=== PATIENT | male | born 1960 | race Two or more races ===

== ENCOUNTER 2023-05-16 16:23 | Emergency (ER) | payer OTHER, SELFPAY ==
[2023-05-16 16:35] VITALS: BP 134/89; PULSE 97; RESP 18; TEMP 37.1; O2SAT 96; BMI 25.1
--- NOTE | 2023-05-16 16:38 | ED_ITS ---
HPI - General Adult General Chief complaint: General Medical Stated complaint: High blood Sugar Time Seen by Provider: 05/16/23 19:33 Source: patient, RN notes reviewed and old records reviewed Mode of arrival: ambulatory Limitations: language barrier History of Present Illness HPI narrative: 62-year-old male who denies any past medical history presents for evaluation of ?feeling weak. ? Reports he has been feeling this way for quite some time, he has also had increased urination. Patient went to urgent care but was sent year as his point of care glucose was found to be over 600 Denies any fevers, chills or pain. Denies a known history of diabetes He was also swabbed for flu and COVID but does not know the results. Patient endorses a cough Related Data Previous Rx's Medication Instructions Recorded metformin 500 mg tablet 500 mg PO BID #60 tabs 05/16/23 Allergies Allergy/AdvReac Type Severity Reaction Status Date / Time No Known Allergies Allergy Verified 05/16/23 16:45 Review of Systems 2 Constitutional: Constitutional: Denies chills, Denies fever(s) and Reports weakness Eyes: Eyes: Denies blurry vision ENT: Denies sore throat Cardiovascular: Cardiovascular: Denies chest pain and Denies dyspnea Respiratory: Respiratory: Reports cough and Denies dyspnea Gastrointestinal: Gastrointestinal: Denies abdominal pain, Denies nausea and Denies vomiting Musculoskeletal: Musculoskeletal: Denies back pain Integumentary/Breasts: Skin/Breast: Denies rash Neurologic: Reports weakness PMFSH Social History Social History Smoked in Last 30 Days: Yes Use of substances other than those prescribed or required for medical reasons: No Advance Directives: No Advance Directives Information Provided: No Physical Exam ED Vital Signs: Vital Signs - 24 hr 05/16/23 16:35 05/16/23 19:34 05/16/23 20:31 Temperature 98.8 F 98.0 F 98.1 F Pulse Rate 97 78 66 Respiratory Rate 18 17 14 Blood Pressure 134/89 136/85 147/89 H Pulse Oximetry 96 96 98 Oxygen Delivery Method Room Air Room Air Room Air 05/16/23 23:18 Temperature Pulse Rate 80 Respiratory Rate 15 Blood Pressure 148/81 H Pulse Oximetry 96 Oxygen Delivery Method Room Air BMI result Body Mass Index 25.1 Const General: healthy appearing, comfortable, no acute distress, alert and awake Nutritional Appearance: well nourished Orientation/consciousness: patient oriented x3 HENMT Head: Yes normocephalic and Yes atraumatic Throat: Yes posterior oropharynx normal Eyes Eyelids: Yes eyelids normal Conjunctivae: conjunctivae normal Sclerae: sclerae normal Corneas: corneas normal Pupils: Equal, round and reactive pupils present EOM: EOMs intact bilaterally Neck Neck: Yes full ROM Resp Effort & Inspection: normal respiratory effort, able to speak in complete sentences, no audible wheezes and not labored Auscultation: clear to auscultation bilaterally Cardio Rate: regular rate Rhythm: regular rhythm GI Inspection: No distended Palpation (GI): Soft to palpation, not firm, nontender, no guarding and not rigid Skin General skin exam: no rashes or lesions noted and elasticity normal Neuro General: patient oriented x3 Cranial nerves: Yes Equal, round and reactive pupils present and Yes Bilaterally intact EOM present Cognition (Neuro): normal cognition Extrem Other: Moving all extremities well without any obvious deformities Course Course Course Narrative: RME:? Full HPI, ROS and PE to be performed by the primary ED provider. Reevaluation(s) Reevaluation #1: Patient's glucose has greatly improved to 264 with IV fluids alone, the patient will be discharged with metformin Time: 23:22 Medications Administered Discontinued Medications Generic Name Dose Route Start Last Admin Trade Name Freq PRN Reason Stop Dose Admin Sodium Chloride 1,000 mls @ 999 mls/hr 05/16/23 20:15 05/16/23 20:28 Ns IV 05/16/23 22:15 999 mls/hr .[id number] MARILEE Administration Medical Decision Making Medical Decision Making [facility] Narrative: 62-year-old male presents for evaluation of general weakness, increased urination. He was found to have a glucose of 496. There is no evidence of DKA, is electrolytes are within normal limits once his sodium is corrected for hyperglycemia. His anion gap is within normal limits, his beta hydroxybutyrate is slightly elevated and likely due to the fact the patient has had elevated glucose for quite some time. However again, there is no evidence of DKA. Will treat with IV fluids and recheck his sugar Differential Diagnosis Differential Diagnoses: The differential diagnosis associated with the presentation includes Hyperglycemia HHS DKA Dehydration Lab Data [facility] Lab Attestation statement: I reviewed the patient's lab results. As above 05/16/23 16:59 05/16/23 16:59 Labs: Lab Results 05/16/23 05/16/23 05/16/23 Range/Units 16:59 18:26 19:36 WBC 7.9 (4.8-10.8) X10*3/uL RBC 5.43 (4.60-5.80) X10*6/uL Hgb 14.7 (14.0-18.0) g/dl Hct 44.1 (42.0-52.0) % MCV 81.2 (80.0-98.0) fL MCH 27.1 (27.0-33.0) pg MCHC 33.3 (31.0-36.0) g/dl RDW 12.1 (11.0-16.0) % Plt Count 274 (160-400) X10*3/uL MPV 11.0 (9.4-12.4) fL Immature Gran % (Auto) 0.3 (0.0-0.4) % Neut % (Auto) 60.9 (45-73) % Lymph % (Auto) 32.6 (20-40) % [place] % (Auto) 3.9 (2-11) % Eos % (Auto) 1.8 (0-4) % Baso % (Auto) 0.5 (0-2) % Lymph # (Auto) 2.6 (1.2-4.9) X10*3/uL [place] # (Auto) 0.3 (0.1-1.2) X10*3/uL Eos # (Auto) 0.1 (0.0-0.4) X10*3/uL Baso # (Auto) 0.0 (0.0-0.2) X10*3/uL Abs Immat Gran (auto) 0.02 (0.00-0.03) X10*3/uL Absolute Neuts (auto) 4.8 (2.0-8.3) x10*3/uL Absolute Nucleated RBC 0.000 (0.0-0.012) X10*3/uL Nucleated RBC % (auto) 0.0 (0.0-0.2) /100WBC Sodium 132 L (135-145) mmol/L Potassium 4.4 (3.3-5.1) mmol/L Chloride 98 (96-108) mmol/L Carbon Dioxide 24 (22-29) mmol/L Anion Gap 14 (12-20) BUN 12 (9-16) mg/dL Creatinine 1.29 (0.5-1.4) mg/dL Estim Creat Clear Calc 58.9 Estimated GFR 57 POC Glucose 385 H* (60-115) mg/dL Random Glucose 496 H* (60-115) mg/dL Osmolality 300 (281-305) mosm/kg Calcium 9.5 (8.4-10.2) mg/dL Magnesium 2.1 (1.6-2.6) mg/dL Total Bilirubin 0.3 (0.0-1.0) mg/dL AST 34 (5-37) U/L ALT 40 (0-40) U/L Alkaline Phosphatase 83 (39-117) U/L Total Protein 7.9 (6.5-8.0) g/dL Albumin 4.4 (3.5-5.0) g/dL Lipase 66 (8-78) U/L Beta-Hydroxybutyrate 1.30 H (0.02-0.27) mmol/L Urine Color Urine Appearance Urine pH (5.0-9.0) Ur Specific [place] (1.005-1.025) Urine Protein (Neg-Trace) mg/dL Urine Glucose (UA) (Negative) mg/dL Urine Ketones (Negative) mg/dL Urine Blood (Negative) Urine Nitrite (Negative) Ur Leukocyte Esterase (Negative) Urine RBC (0-2) /HPF Urine WBC (0-5) /HPF Ur Squamous Epith Cells (0-2) /HPF Urine Bacteria (None Seen) Hyaline Casts (0-2) /LPF COVID-19 (MARQUIS) Negative (Negative) COVID-19 Clin Com See Note Influenza Type A (NORBERTO) Negative (Negative) Influenza Type B (NORBERTO) Negative (Negative) Influenza A & B Note See Note 05/16/23 Range/Units 19:40 WBC (4.8-10.8) X10*3/uL RBC (4.60-5.80) X10*6/uL Hgb (14.0-18.0) g/dl Hct (42.0-52.0) % MCV (80.0-98.0) fL MCH (27.0-33.0) pg MCHC (31.0-36.0) g/dl RDW (11.0-16.0) % Plt Count (160-400) X10*3/uL MPV (9.4-12.4) fL Immature Gran % (Auto) (0.0-0.4) % Neut % (Auto) (45-73) % Lymph % (Auto) (20-40) % [place] % (Auto) (2-11) % Eos % (Auto) (0-4) % Baso % (Auto) (0-2) % Lymph # (Auto) (1.2-4.9) X10*3/uL [place] # (Auto) (0.1-1.2) X10*3/uL Eos # (Auto) (0.0-0.4) X10*3/uL Baso # (Auto) (0.0-0.2) X10*3/uL Abs Immat Gran (auto) (0.00-0.03) X10*3/uL Absolute Neuts (auto) (2.0-8.3) x10*3/uL Absolute Nucleated RBC (0.0-0.012) X10*3/uL Nucleated RBC % (auto) (0.0-0.2) /100WBC Sodium (135-145) mmol/L Potassium (3.3-5.1) mmol/L Chloride (96-108) mmol/L Carbon Dioxide (22-29) mmol/L Anion Gap (12-20) BUN (9-16) mg/dL Creatinine (0.5-1.4) mg/dL Estim Creat Clear Calc Estimated GFR POC Glucose (60-115) mg/dL Random Glucose (60-115) mg/dL Osmolality (281-305) mosm/kg Calcium (8.4-10.2) mg/dL Magnesium (1.6-2.6) mg/dL Total Bilirubin (0.0-1.0) mg/dL AST (5-37) U/L ALT (0-40) U/L Alkaline Phosphatase (39-117) U/L Total Protein (6.5-8.0) g/dL Albumin (3.5-5.0) g/dL Lipase (8-78) U/L Beta-Hydroxybutyrate (0.02-0.27) mmol/L Urine Color Yellow Urine Appearance Clear Urine pH 6.0 (5.0-9.0) Ur Specific [place] >= 1.030 H (1.005-1.025) Urine Protein Negative (Neg-Trace) mg/dL Urine Glucose (UA) >=1000 H (Negative) mg/dL Urine Ketones 40 (Negative) mg/dL Urine Blood Negative (Negative) Urine Nitrite Negative (Negative) Ur Leukocyte Esterase Negative (Negative) Urine RBC 0-2 (0-2) /HPF Urine WBC 0-5 (0-5) /HPF Ur Squamous Epith Cells 0-2 (0-2) /HPF Urine Bacteria None Seen (None Seen) Hyaline Casts 0-2 (0-2) /LPF COVID-19 (MARQUIS) (Negative) COVID-19 Clin Com Influenza Type A (NORBERTO) (Negative) Influenza Type B (NORBERTO) (Negative) Influenza A & B Note Discharge Plan Discharge Clinical Impression: Acute hyperglycemia Patient Disposition: Home, Self-Care Instructions: Diabetic Hyperglycemia (ED) Additional Instructions: You have a new diagnosis of type 2 diabetes Take metformin twice daily Drink lots of water, avoid excessive carbohydrates and sugars Follow-up with your primary doctor as soon as possible Prescriptions: New metformin 500 mg tablet 500 mg PO BID Qty: 60 0RF
[2023-05-16 17:18] LABS: MANUAL DIFF FLAG NO
[2023-05-16 17:26] LABS: Basophils Percent Auto 0.5 % (0-2); Eosinophils Absolute Auto 0.1 X10*3/uL (0.0-0.4); Eosinophils Percent Auto 1.8 % (0-4); Hematocrit 44.1 % (42.0-52.0); Hemoglobin 14.7 g/dl (14.0-18.0); Imm Gran Abs Auto 0.02 X10*3/uL (0.00-0.03); Imm Gran Pct Auto 0.3 % (0.0-0.4); Lymphocytes Absolute Auto 2.6 X10*3/uL (1.2-4.9); Lymphocytes Percent Auto 32.6 % (20-40); Mean Corpuscular HGB Conc 33.3 g/dl (31.0-36.0); Mean Corpuscular Hemoglobin 27.1 pg (27.0-33.0); Mean Corpuscular Volume 81.2 fL (80.0-98.0); Monocytes Absolute Auto 0.3 X10*3/uL (0.1-1.2); Monocytes Percent Auto 3.9 % (2-11); Neutrophils Absolute Auto 4.8 x10*3/uL (2.0-8.3); Neutrophils Percent Auto 60.9 % (45-73); Platelet Count 274 X10*3/uL (160-400); Red Blood Count 5.43 X10*6/uL (4.60-5.80); Red Cell Distribution Width 12.1 % (11.0-16.0); White Blood Count 7.9 X10*3/uL (4.8-10.8)
[2023-05-16 17:46] LABS: Alanine Aminotransferase 40 U/L (0-40); Albumin Level 4.4 g/dL (3.5-5.0); Alkaline Phosphatase 83 U/L (39-117); Anion Gap 14 (12-20); Aspartate Amino Transferase 34 U/L (5-37); Bilirubin Total 0.3 mg/dL (0.0-1.0); Blood Urea Nitrogen 12 mg/dL (9-16); Calcium 9.5 mg/dL (8.4-10.2); Carbon Dioxide 24 mmol/L (22-29); Chloride 98 mmol/L (96-108); Creatinine Clr Calc Pharmacy 58.9; Estimated Glomerular Filt Rate 57; Glucose Random 496 mg/dL (60-115); Lipase 66 U/L (8-78); Magnesium 2.1 mg/dL (1.6-2.6); Potassium 4.4 mmol/L (3.3-5.1); Sodium 132 mmol/L (135-145); Total Protein 7.9 g/dL (6.5-8.0)
[2023-05-16 17:48] LABS: COVID-19 Test Negative (Negative); IDNOW Serial# 08D9AD1C; IDNOW Serial# 152EDE1D; Influenza A Negative (Negative); Influenza B2 Negative (Negative)
[2023-05-16 18:43] LABS: Osmolality, Serum 300 mosm/kg (281-305)
[2023-05-16 19:34] VITALS: BP 136/85; PULSE 78; RESP 17; TEMP 36.7; O2SAT 96
[2023-05-16 19:45] LABS: Glucose, Whole Blood 385 mg/dL (60-115)
[2023-05-16 19:49] LABS: Appearance Urine Clear; Color Urine Yellow; Glucose Urine UA >=1000 mg/dL (Negative); Leukocyte Esterase Urine Negative (Negative); Nitrite Urine Negative (Negative); Specific Gravity - Urine >= 1.030 (1.005-1.025); UMIC TRIGGER UACC YES; Urine Blood Negative (Negative); Urine Ketones 40 mg/dL (Negative); Urine Protein Negative (Neg-Trace)
[2023-05-16 19:54] LABS: Bacteria Urine None Seen (None Seen); Hyaline Casts Urine 0-2 /LPF (0-2); RBC Urine 0-2 /HPF (0-2); Squamous Epithelial Cell Urine 0-2 /HPF (0-2); WBC Urine 0-5 /HPF (0-5)
[2023-05-16] MEDS: 0.9 % Sodium Chloride 1,000 ML 999 ML IV ×2 (20:27→20:28)
[2023-05-16 20:31] VITALS: BP 147/89; PULSE 66; RESP 14; TEMP 36.7; O2SAT 98
[2023-05-16 23:18] VITALS: BP 148/81; PULSE 80; RESP 15; O2SAT 96
[2023-05-16 23:23] LABS: Glucose, Whole Blood 267 mg/dL (60-115)
[2023-05-16 23:42] VITALS: BP 138/87; PULSE 72; RESP 14; TEMP 37.1; O2SAT 95
== END 2023-05-16 23:46 | disposition home or self-care (01) ==
PROVIDERS: Physician Assistant Medical; Emergency Provider Internal Medicine
DX: R73.9 Hyperglycemia, unspecified (principal); R35.0 Frequency of micturition; Z79.899 Other long term (current) drug therapy; Z11.52 Encounter for screening for COVID-19
CPT/HCPCS: 36415; 80053; 81001; 82010; 82947; 83690; 83735; 83930; 85025; 87502; 87635; 96360; 96361; 99284

== ENCOUNTER 2023-07-31 14:31 | Emergency (ER) | payer OTHER, SELFPAY ==
[2023-07-31 15:05] VITALS: BP 116/81; PULSE 76; RESP 18; TEMP 36.8; O2SAT 98; BMI 21.1
--- NOTE | 2023-07-31 15:07 | ED.GENADULT ---
HPI - General Adult General Chief complaint: Weakness Stated complaint: diabetic not feeling well pain all over Time Seen by Provider: 07/31/23 21:30 History of Present Illness HPI narrative: The patient is a 63-year-old male who is from [facility]. Came to the emergency room 2-1/2 months ago on May 16 with a complaint of feeling weak. He had also been having increased urination. He would gone to an urgent care center where he was found to be hyperglycemic and he was referred to the emergency room. On that occasion his blood sugar was 496. He was given IV fluids with significant improvement in his blood sugar. He was not felt to be in DKA. He was discharged from the emergency room on metformin 500 mg b.i.d. The patient returns to the emergency room today because he feels that when he eats his blood sugar goes high. He also says that for the last week or two he has had a lot of diffuse muscle aches in his limbs. No fever, sweats, chills. No abdominal pain, nausea, vomiting. No chest pain or shortness of breath. He has not yet managed to have a follow up appointment of any significance. He apparently has an appointment with an log check scaler on September 30. Related Data Previous Rx's ?Medication ?Instructions ?Recorded metformin 500 mg tablet 500 mg PO BID #60 tabs 05/16/23 metformin 1,000 mg tablet 1,000 mg PO BID #60 tabs 07/31/23 Allergies Allergy/AdvReac Type Severity Reaction Status Date / Time No Known Allergies Allergy Verified 07/31/23 15:14 Review of Systems Review of Systems: Yes all other systems are reviewed and are negative [facility] Social History Social History Advance Directives: No Advance Directives Information Provided: No Physical Exam ED Vital Signs: Vital Signs - 24 hr 07/31/23 15:05 07/31/23 23:20 Temperature 98.2 F 98.2 F Pulse Rate 76 76 Respiratory Rate 18 18 Blood Pressure 116/81 116/81 Pulse Oximetry 98 98 Oxygen Delivery Method Room Air Room Air BMI result Body Mass Index 21.1 Const Other: The patient is a slim 63-year-old male who was awake and alert and who does not appear acutely ill. He is pleasant and cooperative. He did not appear obviously acutely ill. HENMT Other: Face is symmetrical. Mucous membranes moist. Eyes Other: Pupils are round equal, conjunctivae clear Neck Neck: Yes no JVD Resp Effort & Inspection: normal respiratory effort Auscultation: clear to auscultation bilaterally Cardio Rate: regular rate Rhythm: regular rhythm Heart sounds: S1 normal heart sound present and S2 normal heart sound present GI Other: Abdomen is soft and nontender Skin Other: Skin is dry and unremarkable Neuro Other: The patient is awake, alert, and appropriate. His demeanor is nontoxic. Face was symmetrical. Speech was clear. Eye movements normal. He moves his extremities normally. His gait was normal. He is grossly neurologically intact. Extrem Other: No peripheral edema Course Course Course Narrative: This is a rapid medical exam completed by Francis WASHINGTONN: Additional HPI, ROS, PE not included below will be deferred to primary provider. Diabetic, on metformin, not feeling well and feels weak. States he feels as if his blood sugar shoots up when he eats so he has been decreasing his food intake to prevent this. He has been living in a hotel and is unable to cook healthy food and is eating what is available. Medical Decision Making Medical Decision Making [facility] Narrative: The patient is a 63-year-old male who is from [facility]. His primary language is [place] Creole but he is also quite fluent in P[place]de[place], Japanese, and also speaks some Kinyarwanda. I attempted to use are electronic sales and service change leader to speak with the patient in [place] Creole or Japanese but the machine was not working. He was therefore ultimately interviewed with our in-person [place]dein[place] russian language instructor. The patient's description of symptoms that prompted him to come to the emergency room was somewhat vague. He describes living in a hotel where he feels the food is able to prepare causes his blood sugars despite. He also complains of some generalized body aches. Clinically the patient looks very well. Labs are unremarkable. There is no sign of acidosis. Renal function is good. The patient's CBC was unremarkable. CPK was checked given his complaint of diffuse body pains. This was normal also. Overall I felt the patient's clinical appearance was extremely benign I did not see any indication for hospitalization or additional evaluation in the emergency room. The patient has been on 500 mg of metformin b.i.d. for over a month. I think this can probably be increased. I will write a prescription for metformin 1000 mg b.i.d.. He currently has an appointment on September 30. He plans to keep this appointment. Lab Data 07/31/23 15:47 07/31/23 15:47 Labs: Lab Results 07/31/23 Range/Units 15:47 WBC 4.9 (4.8-10.8) X10*3/uL RBC 4.90 (4.60-5.80) X10*6/uL Hgb 13.5 L (14.0-18.0) g/dl Hct 40.9 L (42.0-52.0) % MCV 83.5 (80.0-98.0) fL MCH 27.6 (27.0-33.0) pg MCHC 33.0 (31.0-36.0) g/dl RDW 12.2 (11.0-16.0) % Plt Count 217 (160-400) X10*3/uL MPV 10.1 (9.4-12.4) fL Immature Gran % (Auto) 0.2 (0.0-0.4) % Neut % (Auto) 49.6 (45-73) % Lymph % (Auto) 42.3 H (20-40) % [place] % (Auto) 5.7 (2-11) % Eos % (Auto) 1.4 (0-4) % Baso % (Auto) 0.8 (0-2) % Lymph # (Auto) 2.1 (1.2-4.9) X10*3/uL [place] # (Auto) 0.3 (0.1-1.2) X10*3/uL Eos # (Auto) 0.1 (0.0-0.4) X10*3/uL Baso # (Auto) 0.0 (0.0-0.2) X10*3/uL Abs Immat Gran (auto) 0.01 (0.00-0.03) X10*3/uL Absolute Neuts (auto) 2.4 (2.0-8.3) x10*3/uL Absolute Nucleated RBC 0.000 (0.0-0.012) X10*3/uL Nucleated RBC % (auto) 0.0 (0.0-0.2) /100WBC Sodium 134 L (135-145) mmol/L Potassium 4.0 (3.3-5.1) mmol/L Chloride 98 (96-108) mmol/L Carbon Dioxide 27 (22-29) mmol/L Anion Gap 13 (12-20) BUN 10 (9-16) mg/dL Creatinine 1.10 (0.5-1.4) mg/dL Estim Creat Clear Calc 68.3 Estimated GFR > 60 Random Glucose 290 H (60-115) mg/dL Calcium 9.5 (8.4-10.2) mg/dL Total Bilirubin 0.4 (0.0-1.0) mg/dL AST 19 (5-37) U/L ALT 23 (0-40) U/L Alkaline Phosphatase 63 (39-117) U/L Total Creatine Kinase 116 (38-174) U/L Total Protein 7.0 (6.5-8.0) g/dL Albumin 4.0 (3.5-5.0) g/dL Discharge Plan Discharge Clinical Impression: Type 2 diabetes mellitus, Body aches Patient Disposition: Home, Self-Care Additional Instructions: Your testing in the emergency room today seems reassuring. At this point I think it would be reasonable to increase your metformin dosing. I have sent a new prescription for a higher dose of metformin. The prescription is for 1000 mg 2 times a day. Please do your best to continue monitoring your blood sugars. Please plan on keeping your appointment on September 30 as scheduled. Return to the emergency room if significantly worse. Prescriptions: New metformin 1,000 mg tablet 1,000 mg PO BID Qty: 60 0RF No Action metformin 500 mg tablet 500 mg PO BID Qty: 60 0RF Interventions: ED Discharge Assessment Last Done: 07/31/23 23:20 Discharge Date/Time: 07/31/23 23:21 Print Language: [place] Creveronica
[2023-07-31 16:03] LABS: MANUAL DIFF FLAG NO
[2023-07-31 16:12] LABS: Basophils Percent Auto 0.8 % (0-2); Eosinophils Absolute Auto 0.1 X10*3/uL (0.0-0.4); Eosinophils Percent Auto 1.4 % (0-4); Hematocrit 40.9 % (42.0-52.0); Hemoglobin 13.5 g/dl (14.0-18.0); Imm Gran Abs Auto 0.01 X10*3/uL (0.00-0.03); Imm Gran Pct Auto 0.2 % (0.0-0.4); Lymphocytes Absolute Auto 2.1 X10*3/uL (1.2-4.9); Lymphocytes Percent Auto 42.3 % (20-40); Mean Corpuscular Hemoglobin 27.6 pg (27.0-33.0); Mean Corpuscular Volume 83.5 fL (80.0-98.0); Mean Platelet Volume 10.1 fL (9.4-12.4); Monocytes Absolute Auto 0.3 X10*3/uL (0.1-1.2); Monocytes Percent Auto 5.7 % (2-11); Neutrophils Absolute Auto 2.4 x10*3/uL (2.0-8.3); Neutrophils Percent Auto 49.6 % (45-73); Platelet Count 217 X10*3/uL (160-400); Red Cell Distribution Width 12.2 % (11.0-16.0); White Blood Count 4.9 X10*3/uL (4.8-10.8)
[2023-07-31 16:22] LABS: Alanine Aminotransferase 23 U/L (0-40); Alkaline Phosphatase 63 U/L (39-117); Anion Gap 13 (12-20); Aspartate Amino Transferase 19 U/L (5-37); Bilirubin Total 0.4 mg/dL (0.0-1.0); Blood Urea Nitrogen 10 mg/dL (9-16); Calcium 9.5 mg/dL (8.4-10.2); Carbon Dioxide 27 mmol/L (22-29); Chloride 98 mmol/L (96-108); Creatinine Clr Calc Pharmacy 68.3; Estimated Glomerular Filt Rate > 60; Glucose Random 290 mg/dL (60-115); Sodium 134 mmol/L (135-145)
[2023-07-31 23:20] VITALS: BP 116/81; PULSE 76; RESP 18; TEMP 36.8; O2SAT 98
== END 2023-07-31 23:21 | disposition home or self-care (01) ==
PROVIDERS: Nurse Practitioner Family; Emergency Provider Emergency Medicine
DX: M70.10 Bursitis, unspecified hand (principal); E11.9 Type 2 diabetes mellitus without complications; Z79.899 Other long term (current) drug therapy
CPT/HCPCS: 36415; 80053; 82550; 85025; 99282; 99283; 99284

== ENCOUNTER 2024-01-13 14:44 | Inpatient (IN) | payer OTHER, SELFPAY ==
[2024-01-13] VITALS (30 sets, daily range): BP systolic 76–108; BP diastolic 48–76; PULSE 98–145; RESP 17–33; TEMP 37.1–39.4; O2SAT 94–98; BMI 21.5; BMI 22.6
--- NOTE | ~2024-01-13 | CT_ITS ---
EXAMINATION: CT ABDOMEN AND PELVIS WITH CONTRAST CLINICAL INFORMATION: 63-year-old male with sepsis COMPARISON: None available. TECHNIQUE: Multidetector volumetric images were obtained from the superior aspect of the liver through the pubic symphysis following administration 85 mL of Omnipaque 350 intravenous contrast. Sagittal and coronal reformatted images were obtained on the technologist's workstation. Oral contrast: No This CT examination was performed using dose optimization techniques as appropriate, variously including the following: *Automated exposure control *Adjustment of mA and/or kV according to patient size (this includes techniques or standardized protocols for targeted exams where dose is matched to indication/reason for exam; i.e. extremities or head) *Use of iterative reconstruction technique DLP: 372 mGy-cm FINDINGS: LUNG BASES: There is trace of left-sided pleural effusion and adjacent airspace disease is more prominent on the left. LIVER, GALLBLADDER, AND BILIARY TREE: Liver is of low attenuation, enlarged and surrounded by small amount of ascites without intrahepatic masses or ductal dilatation gallbladder surrounded by fluid with diffuse wall thickening, measured approximately 0.7 cm. No evidence of cholelithiasis PANCREAS: Unremarkable. SPLEEN: Unremarkable. ADRENAL GLANDS: Unremarkable. KIDNEYS AND URETERS: There is perinephric fat stranding and left kidney demonstrate loss of corticomedullary differentiation. Right kidney mentation 2 mild fullness of collecting system and diffuse edema revealed low-attenuation lesion measured 2.3 x 2.1 cm most likely calyectasis but abscess could not be excluded. BLADDER: Unremarkable. GASTROINTESTINAL TRACT: There is no bowel obstruction, perforation, wall thickening. There is mild diffuse ascites more prominent in perinephric spaces and along with the psoas muscles. Appendix not identified. ABDOMINAL WALL: No significant hernia is appreciated. LYMPH NODES: Normal. VASCULAR: Unremarkable. PELVIC VISCERA: Unremarkable. OSSEOUS STRUCTURES: Unremarkable. CT/CT abdomen pelvis w IV con IMPRESSION: Questionable pyelonephritis with possible right-sided atelectasis versus small abscess. Perinephric and limited for targeted to annual as well as abdominal ascites. Trace of pleural effusion on the left with adjacent atelectasis. Significant thickening, gallbladder wall suggestive for acalculous cholecystitis . Fleischner guidelines were followed. Electronically signed by: Mirela Ng MD 01/13/2024 08:57 PM EDT
--- NOTE | ~2024-01-13 | US_ITS ---
ULTRASOUND-GUIDED CHOLECYSTOSTOMY TUBE PROCEDURES: 1. Limited preprocedure ultrasound of the abdomen. Permanent images saved in PACS. 2. Ultrasound-guided cholecystostomy tube placement. 3. Limited postprocedure ultrasound of the abdomen. Permanent images saved in PACS. CLINICIANS: George Heck PA-C MEDICATIONS: -Lidocaine 1% 10 mL SQ -Antibiotics: None -For additional details, please see nursing flowsheet. COMPLICATIONS: None ESTIMATED BLOOD LOSS: < 5 ml CONTRAST: None SPECIMENS: A sample of bile was sent for culture. PROCEDURE NOTE: The procedure, risks, benefits, and alternatives were carefully explained to the patient and written informed consent was obtained. The patient was placed supine on his ICU bed.. A timeout was performed. A limited ultrasound of the abdomen was performed to localize the gallbladder and choose appropriate needle entry and trajectory. The patient was prepped and draped in usual sterile fashion. The skin and deeper soft tissues were anesthetized with lidocaine. Under ultrasound guidance, a 5 Ug[place]an Yueh needle/catheter was advanced into the gallbladder lumen via transhepatic approach. A 0.035 wire was inserted through the catheter and coiled within the gallbladder. The Yueh catheter was removed over the wire. The tract was dilated. Over the wire, an 8.5 Ugandan all-purpose drainage catheter was advanced and coiled within the gallbladder. 10 mL of very dark/thick bile was aspirated and sent for culture. A limited post procedure ultrasound was then performed. Images were saved in PACS. The drain was connected to a ABDIFATAH bulb. A dry dressing was applied and secured with Tegaderm. There were no immediate complications. The patient was stable after the procedure. US/US drain visceral Impression: Ultrasound-guided cholecystostomy tube placement This procedure was performed by George Heck PA-C and supervised by Dr. Tamez. Electronically signed by: Abilio Tamez MD 01/22/2024 02:10 PM EDT
--- NOTE | ~2024-01-13 | XR_ITS ---
EXAMINATION: XR CHEST CLINICAL INFORMATION: Cough, fever. COMPARISON: None available. TECHNIQUE: 2 views of the chest were obtained. FINDINGS: Diffuse interstitial coarsening with more focal airspace densities overlying the lower thoracic spine in the lower lungs on the lateral view. No pleural effusion or pneumothorax. No significant cardiomediastinal contour abnormality. No acute osseous findings. XR/XR chest 2V IMPRESSION: Findings suspicious for atypical infectious/inflammatory process with early infiltrates in the lower lungs. Electronically signed by: Marjorie Nguyen MD 01/13/2024 05:35 PM EDT
--- NOTE | ~2024-01-13 | CT_ITS ---
EXAMINATION: CT CHEST WITH CONTRAST CLINICAL INFORMATION: Sepsis COMPARISON: None available. TECHNIQUE: Multidetector volumetric CT imaging of the chest was obtained after the administration of 85 mL of Omnipaque 350 intravenous contrast without immediate adverse reactions. Axial MIP volume rendering provided. Sagittal and coronal reformatted images were obtained. This CT examination was performed using dose optimization techniques as appropriate, variously including the following: *Automated exposure control *Adjustment of mA and/or kV according to patient size (this includes techniques or standardized protocols for targeted exams where dose is matched to indication/reason for exam; i.e. extremities or head) *Use of iterative reconstruction technique DLP: 185 mGy-cm FINDINGS: NURSING SERVICE ADMINISTRATOR: Unremarkable LUNGS: There are no evidence of consolidation. Bibasilar atelectasis more prominent on the left. MEDIASTINUM: Thyroid gland is unremarkable. There is no mediastinal or hilar lymphadenopathy seen. No incidental pulmonary embolism. No pericardial effusion. PLEURA: There is trace of pleural effusion on the left AXILLA: No lymphadenopathy. UPPER ABDOMEN: See report of CT scan of the abdomen OSSEOUS STRUCTURES: Unremarkable. CT/CT chest w IV con IMPRESSION: Bilateral atelectasis and trace of pleural effusion on the left. Fleischner guidelines were followed. Electronically signed by: Mirela Ng MD 01/13/2024 09:01 PM EDT
--- NOTE | ~2024-01-13 | XR_ITS ---
EXAMINATION: XR CHEST CLINICAL INFORMATION: TLC placement. COMPARISON: 01/13/2024. TECHNIQUE: Frontal view of the chest was obtained. FINDINGS: Right IJ line tip projects into the right atrium. Cardiac silhouette borderline enlarged, although evaluation is limited due to low lung volumes. Possible trace, very tiny right apical pneumothorax. Redemonstration of prominent diffuse interstitial markings with patchy opacities predominantly in the lower left lung. Trace left pleural effusion. XR/XR chest 1V IMPRESSION: Redemonstration of prominent diffuse interstitial markings with patchy opacities predominantly in the lower left lung. Trace left pleural effusion. Right IJ line in the right atrium. Possible trace, very tiny right apical pneumothorax. This study was presented today, January 14, 2024, for interpretation. Stat results provided at this time as requested by referring provider. Electronically signed by: Shannan Mcgee MD 01/14/2024 10:51 AM EDT
--- NOTE | ~2024-01-13 | CT_ITS ---
EXAMINATION: CT ABDOMEN AND PELVIS WITHOUT CONTRAST CLINICAL INFORMATION: abdominal pain, ?renal abscess, ALEC COMPARISON: January 13, 2024. TECHNIQUE: Multidetector volumetric imaging was performed from the superior aspect of the liver through the pubic symphysis. Sagittal and coronal reformatted images were obtained on the technologist's workstation. This CT examination was performed using dose optimization techniques as appropriate, variously including the following: *Automated exposure control *Adjustment of mA and/or kV according to patient size (this includes techniques or standardized protocols for targeted exams where dose is matched to indication/reason for exam; i.e. extremities or head) *Use of iterative reconstruction technique DLP: 391 mGy-cm FINDINGS: LUNG BASES: Small bilateral pleural effusions with associated dependent airspace disease, right greater than left, worse compared with 3 days prior. Heart upper normal in size. Suspect decreased blood pool density, raising suspicion for anemia. No coronary arterial calcification identified. Small pericardial effusion, not significant changed. LIVER, GALLBLADDER, AND BILIARY TREE: The liver appears unremarkable in size, shape, and attenuation. No focal hepatic lesion or biliary ductal dilatation is appreciated. [place] loop of a percutaneous cholecystostomy tube performed within the neck of the gallbladder. No evidence of catheter kink. Gallbladder appears appropriately decompressed. PANCREAS: Unremarkable SPLEEN: Unremarkable ADRENAL GLANDS: Unremarkable KIDNEYS AND URETERS: Striated renal parenchymal pattern probably related to prior intravenous contrast administration and ATN. The kidneys appear unremarkable in size and shape. Question mild fullness of the right renal collecting system, unchanged compared with 3 days prior. Left renal collecting system appears unremarkable. No hydroureter or calculi seen. BLADDER: Poorly distended, therefore suboptimally evaluated. Grossly unremarkable. GASTROINTESTINAL TRACT: The small and large bowel appear unremarkable. No diverticulosis. Normal-appearing distal ileum. No evidence of appendicitis. ABDOMINAL WALL: Anasarca. No significant hernia is appreciated. LYMPH NODES: No evidence of adenopathy by size criteria. VASCULAR: Unremarkable PELVIC VISCERA: Unremarkable PERITONEAL CAVITY: Small amount of ascites. OSSEOUS STRUCTURES: Mild disc space narrowing and approximately 2 mm retrolisthesis of L5 on S1. CT/CT abdomen pelvis wo IV con IMPRESSION: Small bilateral pleural effusions with associated dependent airspace disease suggesting infiltrates and/or atelectasis, right greater than left, worse compared with 3 days prior. Striated renal parenchymal pattern probably related to prior intravenous contrast administration and ATN; superimposed pyelonephritis cannot be confirmed or excluded. Question mild fullness of the right renal collecting system, unchanged compared with 3 days prior. Left renal collecting system appears unremarkable. No hydroureter or calculi seen. Small amount of ascites. Anasarca. Additional findings as above. Electronically signed by: Raul Gardiner MD 01/16/2024 05:06 PM EDT RP
--- NOTE | 2024-01-13 15:11 | ED.GENADULT ---
HPI - General Adult General Chief complaint: Upper Respiratory Symptoms Stated complaint: Fever, chills Time Seen by Provider: 01/13/24 15:10 History of Present Illness ED Provider: Dr. Wesley HPI narrative: 63 y/o M patient; PMH T2DM on Metformin; presents from home with report of 10 days of generalized illness. The patient states he started with fever/chills, generalized body aches, nausea/vomiting, a productive cough, and lower abdominal pain/cramping. The patient denies shortness of breath or chest pain. Related Data Previous Rx's ?Medication ?Instructions ?Recorded metformin 500 mg tablet 500 mg PO BID #60 tabs 05/16/23 metformin 1,000 mg tablet 1,000 mg PO BID #60 tabs 07/31/23 metformin 1,000 mg tablet 1,000 mg PO BID 30 days #60 tabs 08/05/23 Allergies Allergy/AdvReac Type Severity Reaction Status Date / Time No Known Allergies Allergy Verified 01/13/24 15:07 Review of Systems Review of Systems: Yes all other systems are reviewed and are negative PMFSH Past Medical History Attestation statement: The following information was validated with the patient. Source: old records reviewed Social History Social History Smoked in Last 30 Days: Yes Use of substances other than those prescribed or required for medical reasons: No Advance Directives: No Advance Directives Information Provided: Yes Do you have a plan to hurt others: No Plan Physical Exam ED Vital Signs: Vital Signs - 24 hr 01/13/24 14:58 01/13/24 15:37 01/13/24 16:29 Temperature 100.2 F 102.3 F H 99.3 F Pulse Rate 120 H 117 H 124 H Respiratory Rate 18 19 22 H Blood Pressure 89/55 L 99/61 103/70 Pulse Oximetry 98 97 98 Oxygen Delivery Method Room Air Room Air 01/13/24 16:36 01/13/24 16:39 01/13/24 16:58 Temperature Pulse Rate 118 H 116 H 113 H Respiratory Rate 18 19 19 Blood Pressure 101/66 95/61 91/58 L Pulse Oximetry 97 98 98 Oxygen Delivery Method 01/13/24 17:30 01/13/24 18:19 01/13/24 18:30 Temperature Pulse Rate 109 H 107 H 109 H Respiratory Rate 18 21 H 17 Blood Pressure 88/56 L 90/63 83/57 L Pulse Oximetry 98 98 96 Oxygen Delivery Method Room Air 01/13/24 18:42 01/13/24 19:08 01/13/24 19:40 Temperature 98.8 F Pulse Rate 108 H 111 H 111 H Respiratory Rate 18 21 H 24 H Blood Pressure 91/59 L 96/66 103/65 Pulse Oximetry 97 97 97 Oxygen Delivery Method Room Air 01/13/24 19:55 01/13/24 20:10 01/13/24 20:15 Temperature 98.8 F Pulse Rate 109 H 106 H 105 H Respiratory Rate 21 H 19 21 H Blood Pressure 90/58 L 78/50 L 76/48 L Pulse Oximetry 97 96 96 Oxygen Delivery Method 01/13/24 20:26 01/13/24 20:33 01/13/24 20:40 Temperature 98.9 F Pulse Rate 108 H 107 H 107 H Respiratory Rate 20 20 21 H Blood Pressure 93/63 94/59 L 88/58 L Pulse Oximetry 96 96 97 Oxygen Delivery Method Room Air 01/13/24 20:44 01/13/24 20:49 01/13/24 20:54 Temperature Pulse Rate 105 H 105 H 105 H Respiratory Rate 20 19 Blood Pressure 88/58 L 90/61 89/62 L Pulse Oximetry 97 97 Oxygen Delivery Method Room Air 01/13/24 20:59 01/13/24 21:04 Temperature Pulse Rate 108 H 104 H Respiratory Rate 19 18 Blood Pressure 97/66 92/61 Pulse Oximetry 97 97 Oxygen Delivery Method Room Air BMI result Body Mass Index 22.6 Patient is febrile, tachycardic, and hypotensive. Const General: cooperative Orientation/consciousness: patient oriented x3 HENMT Head: Yes normal to inspection and Yes atraumatic Eyes General: appearance normal, both eyes and all related structures Pupils: Equal, round and reactive pupils present Neck Neck: Yes normal visual inspection, Yes full ROM, Yes supple and No tender Chest Chest palpation & inspection: normal inspection of the chest and normal palpation of entire chest wall Resp Effort & Inspection: normal respiratory effort, able to speak in complete sentences, no cough and no respiratory distress Auscultation: clear to auscultation bilaterally Cardio Rate: tachycardic Rhythm: regular rhythm Peripheral pulses: Peripheral pulses 2+ throughout GI Inspection: Yes normal to inspection, No Abdominal wall edema and No distended Palpation (GI): Soft to palpation, not firm, nontender, no guarding and not rigid Auscultation: normal bowel sounds Back/Spine/Pelvis Back: No back tenderness Neuro General: patient oriented x3 Cranial nerves: Yes Equal, round and reactive pupils present Course Course Course Narrative: 1515: Patient is febrile, tachycardic, and hypotensive. Providing 30cc/kg with 2L IVF. Will obtain sepsis labs including labs to assess for possible DKA/HHS. Provided Vancomycin and Zosyn for sepsis unclear etiology. Provided Tylenol 1g IV for fever. Will obtain CT Chest+abdomen+pelvis to assess for etiology of sepsis. Reevaluation(s) Reevaluation #1: Labs reviewed. No leukocytosis. 11% bands. Anemia 9.7 - prior Hgb 07/31/2023 was 13.5. LA 3.7. Cr 2.54 - baseline 1.10 from 07/31/2023. UA with evidence of infection with + blood, + nitrites, + leuk est and 11 - 20WBC, 2+ bacteria. Patient continues to be hypotensive despite 2L IVF. Providing 3rd L IVF. CXR concerning for possible bilateral early infiltrates. Adding atypical coverage with IV Azithromycin. Time: 18:11 Reevaluation #2: Patient's blood pressure intermittently improved and then worsened again after IV fluids. Starting on norepinephrine at 0.05. LA improved from 3.[address] results. Time: 20:28 Reevaluation #3: CT results reviewed. Questionable pyelonephritis with possible right-sided calyctasis versus small abscess. Trace left-sided pleural effusion. Significant thickening of the gallbladder wall suggestive of acalculous cholecystitis. ICU consulted - agree with admission to their service and possible IR evaluation tomorrow. Plan: Admit to ICU Condition: Stable Time: 21:23 Medications Administered Generic Name Dose Route Start Last Admin Trade Name Freq PRN Reason Stop Dose Admin Norepinephrine Bitartrate 8 mg in 250 mls @ 0 mls/hr 01/13/24 20:15 01/13/24 20:44 Levophed IVCONT 0.05 mcg/kg/min .Q0M MARILEE 6.03 mls/hr Administration Protocol Per Protocol Discontinued Medications Generic Name Dose Route Start Last Admin Trade Name Freq PRN Reason Stop Dose Admin Sodium Chloride 1,000 mls @ 999 mls/hr 01/13/24 15:15 01/13/24 16:35 Ns IV 01/13/24 16:15 Infused .Q1H1M MARILEE Infusion Sodium Chloride 1,000 mls @ 999 mls/hr 01/13/24 15:15 01/13/24 16:35 Ns IV 01/13/24 16:15 Infused .Q1H1M MARILEE Infusion Vancomycin HCl 1,500 mg/ 500 mls @ 333.333 mls/hr 01/13/24 15:32 01/13/24 18:06 Sodium Chloride IV 01/13/24 17:01 Infused ONCE ONE Infusion Piperacillin Sod/Tazobactam 100 mls @ 200 mls/hr 01/13/24 15:32 01/13/24 16:28 Sod 4.5 gm/ Sodium Chloride IV 01/13/24 16:01 Infused ONCE ONE Infusion Acetaminophen 1,000 mg in 100 mls @ 400 mls/hr 01/13/24 15:47 01/13/24 16:28 Ofirmev IV 01/13/24 16:01 Infused ONCE ONE Infusion Sodium Chloride 1,000 mls @ 999 mls/hr 01/13/24 18:15 01/13/24 18:40 Ns IV 01/13/24 19:15 Not Given .Q1H1M MARILEE Azithromycin 500 mg/ Sodium 250 mls @ 125 mls/hr 01/13/24 18:12 01/13/24 19:23 Chloride IV 01/13/24 20:11 125 mls/hr ONCE ONE Administration Iohexol 100 ml 01/13/24 19:03 01/13/24 19:03 Iohexol 350 Mg/Ml 100 Ml Infus..Btl IV 01/13/24 19:04 85 ml ONCE ONE Administration Medical Decision Making Lab Data 01/13/24 15:43 01/13/24 15:43 Labs: Lab Results 01/13/24 01/13/24 01/13/24 Range/Units 15:43 15:49 15:52 WBC 10.5 (4.8-10.8) X10*3/uL RBC 3.63 L D (4.60-5.80) X10*6/uL Hgb 9.7 L D (14.0-18.0) g/dl Hct 30.4 L D (42.0-52.0) % MCV 83.7 (80.0-98.0) fL MCH 26.7 L (27.0-33.0) pg MCHC 31.9 (31.0-36.0) g/dl RDW 13.2 (11.0-16.0) % Plt Count 227 (160-400) X10*3/uL MPV 10.0 (9.4-12.4) fL Immature Gran % (Auto) Cancelled Neut % (Auto) Cancelled Lymph % (Auto) Cancelled Kingfisher % (Auto) Cancelled Eos % (Auto) Cancelled Baso % (Auto) Cancelled Lymph # (Auto) Cancelled Kingfisher # (Auto) Cancelled Eos # (Auto) Cancelled Baso # (Auto) Cancelled Abs Immat Gran (auto) Cancelled Absolute Neuts (auto) Cancelled Absolute Nucleated RBC 0.000 (0.0-0.012) X10*3/uL Nucleated RBC % (auto) 0.0 (0.0-0.2) /100WBC Neutrophils % (Manual) 85 H (45-73) % Band Neutrophils % 11 H (3-5) % Lymphocytes % (Manual) 2 L (20-40) % Monocytes % (Manual) 1 L (2-11) % Metamyelocytes % 1 % Abs Neuts (Manual) 10.1 H (2.0-8.3) X10*3/uL Lymphocytes # (Manual) 0.2 L (1.2-4.9) X10*3/uL Monocytes # (Manual) 0.1 (0.1-1.2) X10*3/uL Metamyelocytes # 0.1 X10*3/uL Toxic Vacuolation PRESENT Platelet Estimate NORMAL (NORMAL) Plt Morphology Comment NORMAL RBC Morphology NORMAL VBG pH 7.40 (7.32-7.43) VBG pCO2 36 mmHg VBG pO2 49 mmHg VBG HCO3 22 (22-26) mmol/L VBG O2 Saturation 75.0 % VBG Base Excess -1.5 mmol/L Sodium 135 (135-145) mmol/L Potassium 4.3 (3.3-5.1) mmol/L Chloride 102 (96-108) mmol/L Carbon Dioxide 23 (22-29) mmol/L Anion Gap 14 (12-20) BUN 21 H (9-16) mg/dL Creatinine 2.54 H (0.5-1.4) mg/dL Estim Creat Clear Calc 27.7 Estimated GFR 26 POC Glucose 118 H (60-115) mg/dL Random Glucose 134 H (60-115) mg/dL Lactic Acid 3.7 H* (0.5-2.0) mmol/L Lactic Acid F/U @ 2Hr (0.5-2.0) mmol/L Calcium 9.0 (8.4-10.2) mg/dL Total Bilirubin 0.6 (0.0-1.0) mg/dL Direct Bilirubin 0.4 (0.0-0.5) mg/dL AST 60 H (5-37) U/L ALT 28 (0-40) U/L Alkaline Phosphatase 142 H (39-117) U/L Total Protein 6.6 (6.5-8.0) g/dL Albumin 3.1 L (3.5-5.0) g/dL Lipase 43 (8-78) U/L Beta-Hydroxybutyrate 0.18 (0.02-0.27) mmol/L Urine Color Urine Appearance Urine pH (5.0-9.0) Ur Specific [place] (1.005-1.025) Urine Protein (Neg-Trace) mg/dL Urine Glucose (UA) (Negative) mg/dL Urine Ketones (Negative) mg/dL Urine Blood (Negative) Urine Nitrite (Negative) Ur Leukocyte Esterase (Negative) Urine RBC (0-2) /HPF Urine WBC (0-5) /HPF Ur Squamous Epith Cells (0-2) /HPF Urine Bacteria (None Seen) Hyaline Casts (0-2) /LPF Influenza Type A (PCR) NEGATIVE (Negative) Influenza Type B (PCR) NEGATIVE (Negative) RSV RNA Qual (PCR) NEGATIVE (Negative) SARS-CoV-2 RNA (RT-PCR) NEGATIVE (Negative) 01/13/24 01/13/24 Range/Units 16:29 18:18 WBC (4.8-10.8) X10*3/uL RBC (4.60-5.80) X10*6/uL Hgb (14.0-18.0) g/dl Hct (42.0-52.0) % MCV (80.0-98.0) fL MCH (27.0-33.0) pg MCHC (31.0-36.0) g/dl RDW (11.0-16.0) % Plt Count (160-400) X10*3/uL MPV (9.4-12.4) fL Immature Gran % (Auto) Neut % (Auto) Lymph % (Auto) Kingfisher % (Auto) Eos % (Auto) Baso % (Auto) Lymph # (Auto) King[place]isher # (Auto) Eos # (Auto) Baso # (Auto) Abs Immat Gran (auto) Absolute Neuts (auto) Absolute Nucleated RBC (0.0-0.012) X10*3/uL Nucleated RBC % (auto) (0.0-0.2) /100WBC Neutrophils % (Manual) (45-73) % Band Neutrophils % (3-5) % Lymphocytes % (Manual) (20-40) % Monocytes % (Manual) (2-11) % Metamyelocytes % % Abs Neuts (Manual) (2.0-8.3) X10*3/uL Lymphocytes # (Manual) (1.2-4.9) X10*3/uL Monocytes # (Manual) (0.1-1.2) X10*3/uL Metamyelocytes # X10*3/uL Toxic Vacuolation Platelet Estimate (NORMAL) Plt Morphology Comment RBC Morphology VBG pH (7.32-7.43) VBG pCO2 mmHg VBG pO2 mmHg VBG HCO3 (22-26) mmol/L VBG O2 Saturation % VBG Base Excess mmol/L Sodium (135-145) mmol/L Potassium (3.3-5.1) mmol/L Chloride (96-108) mmol/L Carbon Dioxide (22-29) mmol/L Anion Gap (12-20) BUN (9-16) mg/dL Creatinine (0.5-1.4) mg/dL Estim Creat Clear Calc Estimated GFR POC Glucose (60-115) mg/dL Random Glucose (60-115) mg/dL Lactic Acid (0.5-2.0) mmol/L Lactic Acid F/U @ 2Hr 2.8 H* (0.5-2.0) mmol/L Calcium (8.4-10.2) mg/dL Total Bilirubin (0.0-1.0) mg/dL Direct Bilirubin (0.0-0.5) mg/dL AST (5-37) U/L ALT (0-40) U/L Alkaline Phosphatase (39-117) U/L Total Protein (6.5-8.0) g/dL Albumin (3.5-5.0) g/dL Lipase (8-78) U/L Beta-Hydroxybutyrate (0.02-0.27) mmol/L Urine Color Yellow Urine Appearance Clear Urine pH 6.0 (5.0-9.0) Ur Specific [place] 1.010 (1.005-1.025) Urine Protein 30 (1+) H (Neg-Trace) mg/dL Urine Glucose (UA) Negative (Negative) mg/dL Urine Ketones Negative (Negative) mg/dL Urine Blood Moderate (2+) H (Negative) Urine Nitrite Positive H (Negative) Ur Leukocyte Esterase Moderate (2+) H (Negative) Urine RBC 0-2 (0-2) /HPF Urine WBC 11-20 (0-5) /HPF Ur Squamous Epith Cells 0-2 (0-2) /HPF Urine Bacteria 2+ (None Seen) Hyaline Casts 0-2 (0-2) /LPF Influenza Type A (PCR) (Negative) Influenza Type B (PCR) (Negative) RSV RNA Qual (PCR) (Negative) SARS-CoV-2 RNA (RT-PCR) (Negative) Independent Interpretation I performed an independent interpretation of an: EKG Interpretation: ST 106BPM without ischemic changes, normal intervals Radiology Impression Discussion of test interpretation with radiology: I have reviewed the radiologist's reading. Radiologist Impression: EXAMINATION: XR CHEST CLINICAL INFORMATION: Cough, fever. COMPARISON: None available. TECHNIQUE: 2 views of the chest were obtained. FINDINGS: Diffuse interstitial coarsening with more focal airspace densities overlying the lower thoracic spine in the lower lungs on the lateral view. No pleural effusion or pneumothorax. No significant cardiomediastinal contour abnormality. No acute osseous findings. XR/XR chest 2V IMPRESSION: Findings suspicious for atypical infectious/inflammatory process with early infiltrates in the lower lungs. Electronically signed by: Marjorie Nguyen MD 01/13/2024 05:35 PM EDT EXAMINATION: CT CHEST WITH CONTRAST CLINICAL INFORMATION: Sepsis COMPARISON: None available. TECHNIQUE: Multidetector volumetric CT imaging of the chest was obtained after the administration of 85 mL of Omnipaque 350 intravenous contrast without immediate adverse reactions. Axial MIP volume rendering provided. Sagittal and coronal reformatted images were obtained. This CT examination was performed using dose optimization techniques as appropriate, variously including the following: *Automated exposure control *Adjustment of mA and/or kV according to patient size (this includes techniques or standardized protocols for targeted exams where dose is matched to indication/reason for exam; i.e. extremities or head) *Use of iterative reconstruction technique DLP: 185 mGy-cm FINDINGS: NETWORK MGR: Unremarkable LUNGS: There are no evidence of consolidation. Bibasilar atelectasis more prominent on the left. MEDIASTINUM: Thyroid gland is unremarkable. There is no mediastinal or hilar lymphadenopathy seen. No incidental pulmonary embolism. No pericardial effusion. PLEURA: There is trace of pleural effusion on the left AXILLA: No lymphadenopathy. UPPER ABDOMEN: See report of CT scan of the abdomen OSSEOUS STRUCTURES: Unremarkable. CT/CT chest w IV con IMPRESSION: Bilateral atelectasis and trace of pleural effusion on the left. Fleischner guidelines were followed. Electronically signed by: Mirela Ng MD 01/13/2024 09:01 PM EDT EXAMINATION: CT ABDOMEN AND PELVIS WITH CONTRAST CLINICAL INFORMATION: 63-year-old male with sepsis COMPARISON: None available. TECHNIQUE: Multidetector volumetric images were obtained from the superior aspect of the liver through the pubic symphysis following administration 85 mL of Omnipaque 350 intravenous contrast. Sagittal and coronal reformatted images were obtained on the technologist's workstation. Oral contrast: No This CT examination was performed using dose optimization techniques as appropriate, variously including the following: *Automated exposure control *Adjustment of mA and/or kV according to patient size (this includes techniques or standardized protocols for targeted exams where dose is matched to indication/reason for exam; i.e. extremities or head) *Use of iterative reconstruction technique DLP: 372 mGy-cm FINDINGS: LUNG BASES: There is trace of left-sided pleural effusion and adjacent airspace disease is more prominent on the left. LIVER, GALLBLADDER, AND BILIARY TREE: Liver is of low attenuation, enlarged and surrounded by small amount of ascites without intrahepatic masses or ductal dilatation gallbladder surrounded by fluid with diffuse wall thickening, measured approximately 0.7 cm. No evidence of cholelithiasis PANCREAS: Unremarkable. SPLEEN: Unremarkable. ADRENAL GLANDS: Unremarkable. KIDNEYS AND URETERS: There is perinephric fat stranding and left kidney demonstrate loss of corticomedullary differentiation. Right kidney mentation 2 mild fullness of collecting system and diffuse edema revealed low-attenuation lesion measured 2.3 x 2.1 cm most likely calyectasis but abscess could not be excluded. BLADDER: Unremarkable. GASTROINTESTINAL TRACT: There is no bowel obstruction, perforation, wall thickening. There is mild diffuse ascites more prominent in perinephric spaces and along with the psoas muscles. Appendix not identified. ABDOMINAL WALL: No significant hernia is appreciated. LYMPH NODES: Normal. VASCULAR: Unremarkable. PELVIC VISCERA: Unremarkable. OSSEOUS STRUCTURES: Unremarkable. CT/CT abdomen pelvis w IV con IMPRESSION: Questionable pyelonephritis with possible right-sided atelectasis versus small abscess. Perinephric and limited for targeted to annual as well as abdominal ascites. Trace of pleural effusion on the left with adjacent atelectasis. Significant thickening, gallbladder wall suggestive for acalculous cholecystitis . Fleischner guidelines were followed. Electronically signed by: Mirela Ng MD 01/13/2024 08:57 PM EDT Critical Care Time Critical Care Time Critical Care Time: Yes Total Critical Care Time: 55 Attestation: Total critical care time: Approximately?55?minutes Due to a high probability of clinically significant, life threatening deterioration, the patient required my highest level of preparedness to intervene emergently and I personally spent this critical care time directly and personally managing the patient. This critical care time included obtaining a history; examining the patient; pulse oximetry; ordering and review of studies; arranging urgent treatment with development of a management plan; evaluation of patient's response to treatment; frequent reassessment; and, discussions with other providers. This critical care time was performed to assess and manage the high probability of imminent, life-threatening deterioration that could result in multi-organ failure. It was exclusive of separately billable procedures and treating other patients and teaching time. Discharge Plan Discharge Clinical Impression: Acute pyelonephritis, Acute acalculous cholecystitis, Acidosis, lactic Patient Disposition: Admitted As Inpatient Prescriptions: No Action metformin 500 mg tablet 500 mg PO BID Qty: 60 0RF metformin 1,000 mg tablet 1,000 mg PO BID Qty: 60 0RF metformin 1,000 mg tablet 1,000 mg PO BID 30 Days Qty: 60 0RF Print Language: Wolfgang Jon
[2024-01-13 15:53] LABS: Glucose, Whole Blood 118 mg/dL (60-115)
[2024-01-13 15:56] LABS: VBG Base Excess -1.5 mmol/L; VBG HCO3 22 mmol/L (22-26); VBG pCO2 36 mmHg; VBG pO2 49 mmHg
[2024-01-13 15:57] LABS: Venous Blood Gas Refer to POC result
[2024-01-13] MEDS: 0.9 % Sodium Chloride 1,000 ML 999 ML IV ×3 (15:57→17:30)
[2024-01-13 15:58] LABS: Hematocrit 30.4 % (42.0-52.0); Hemoglobin 9.7 g/dl (14.0-18.0); Mean Corpuscular HGB Conc 31.9 g/dl (31.0-36.0); Mean Corpuscular Hemoglobin 26.7 pg (27.0-33.0); Mean Corpuscular Volume 83.7 fL (80.0-98.0); Platelet Count 227 X10*3/uL (160-400); Red Blood Count 3.63 X10*6/uL (4.60-5.80); Red Cell Distribution Width 13.2 % (11.0-16.0); White Blood Count 10.5 X10*3/uL (4.8-10.8)
[2024-01-13] MEDS: Piperacillin Sodium/Tazobactam 4.5 GM in 0.9 % Sodium Chloride 100 ML IV (15:58)
[2024-01-13 16:10] LABS: Lactic Acid 3.7 mmol/L (0.5-2.0)
[2024-01-13 16:11] LABS: Beta-Hydroxybutyrate 0.18 mmol/L (0.02-0.27)
[2024-01-13 16:13] LABS: Alanine Aminotransferase 28 U/L (0-40); Albumin Level 3.1 g/dL (3.5-5.0); Alkaline Phosphatase 142 U/L (39-117); Anion Gap 14 (12-20); Aspartate Amino Transferase 60 U/L (5-37); Bilirubin Direct 0.4 mg/dL (0.0-0.5); Bilirubin Total 0.6 mg/dL (0.0-1.0); Blood Urea Nitrogen 21 mg/dL (9-16); Carbon Dioxide 23 mmol/L (22-29); Chloride 102 mmol/L (96-108); Creatinine Clr Calc Pharmacy 27.7; Estimated Glomerular Filt Rate 26; Glucose Random 134 mg/dL (60-115); Lipase 43 U/L (8-78); Potassium 4.3 mmol/L (3.3-5.1); Sodium 135 mmol/L (135-145); Total Protein 6.6 g/dL (6.5-8.0)
[2024-01-13] MEDS: Acetaminophen 1,000 MG/100 ML PIGGYBACK 400 MG IV ×2 (16:13→23:47)
[2024-01-13 16:30] LABS: Lymphocytes Absolute Manual 0.2 X10*3/uL (1.2-4.9); Lymphocytes Percent Manual 2 % (20-40); Metamyelocytes Absolute 0.1 X10*3/uL; Metamyelocytes Percent 1 %; Monocytes Absolute Manual 0.1 X10*3/uL (0.1-1.2); Monocytes Percent Manual 1 % (2-11); Neutrophils Absolute Manual 10.1 X10*3/uL (2.0-8.3); Neutrophils Percent Manual 85 % (45-73); Platelet Estimate NORMAL (NORMAL); Platelet Morphology Comment NORMAL; RBC Morphology NORMAL; Toxic Vacuolation PRESENT
[2024-01-13 16:34] LABS: Band Neutrophils Percent 11 % (3-5)
[2024-01-13] MEDS: vancomycin HCL 1,500 MG in 0.9 % Sodium Chloride 500 ML 333.33 MG IV (16:35)
[2024-01-13 16:46] LABS: Appearance Urine Clear; Color Urine Yellow; Glucose Urine UA Negative (Negative); Leukocyte Esterase Urine Moderate (2+) (Negative); Nitrite Urine Positive (Negative); UMIC TRIGGER UACC YES; Urine Blood Moderate (2+) (Negative); Urine Ketones Negative (Negative); Urine Protein 30 (1+) mg/dL (Neg-Trace)
[2024-01-13 17:05] LABS: Bacteria Urine 2+ (None Seen); Hyaline Casts Urine 0-2 /LPF (0-2); RBC Urine 0-2 /HPF (0-2); Squamous Epithelial Cell Urine 0-2 /HPF (0-2); UACC Culture Trigger YES
[2024-01-13 17:44] LABS: Influenza A PCR NEGATIVE (Negative); Influenza B PCR NEGATIVE (Negative); Resp Syncy Virus RNA Qual PCR NEGATIVE (Negative); SARS COV2 PCR INHOUSE NEGATIVE (Negative)
[2024-01-13 17:52] LABS: Reflex Lactate? Lactic Acid Added
[2024-01-13 18:46] LABS: ~Lactic Acid-LAB USE ONLY 2.8 mmol/L (0.5-2.0)
[2024-01-13] MEDS: iohexoL 350 MG/ML 100 ML INFUS..BTL IV (19:03)
--- NOTE | 2024-01-13 19:06 | PC.NURSE ---
Assumed care of pt. pt lying on stretcher, denies acute distress at this time. SBP stable with MAP > 70.
[2024-01-13] MEDS: Azithromycin 500 MG in 0.9 % Sodium Chloride 250 ML 125 MG IV (19:23)
[2024-01-13 20:21] LABS: Reflex Lactate? 2 Y
--- NOTE | 2024-01-13 20:29 | ECG_ITS ---
Test Reason : SEPSIS WORKUP Blood Pressure : / mmHG Vent. Rate : 106 BPM Atrial Rate : 106 BPM P-R Int : 128 ms QRS Dur : 080 ms QT Int : 336 ms P-R-T Axes : 060 052 063 degrees QTc Int : 446 ms Sinus tachycardia Otherwise normal ECG No previous ECGs available Referred By: Shanique Wesley Electronically Signed By:MALORIE PACK
--- NOTE | 2024-01-13 20:39 | PC.NURSE ---
MD Wesley made aware of 2 sequential SBP with low map. Second IV started by this RN for access with expected administraition of pressors. Medication ordered, however current SBP above MAP limits for pressor administration, Held per MD Wesley.
[2024-01-13] MEDS: Norepinephrine Bitartrate/D5W 8 MG/250 ML PLAST..BAG 6.03 MG IVCONT (20:44)
--- NOTE | 2024-01-13 20:45 | PC.NURSE ---
SBP currently with MAP attop of pressor range, per MD Wesley started Norepi to stabilize pt.
--- NOTE | 2024-01-13 20:49 | PC.NURSE ---
No titration for Norepi d/t current SBP
--- NOTE | 2024-01-13 20:54 | PC.NURSE ---
No titration with target MAP
--- NOTE | 2024-01-13 20:59 | PC.NURSE ---
No titration with target MAP
--- NOTE | 2024-01-13 21:05 | PC.NURSE ---
No change in Norepi needed due to target MAP- changed vitals to Q15 min.
--- NOTE | 2024-01-13 21:48 | PC.NURSE ---
Pt maintaining adequate perfusion with current rateofNorepi.
[2024-01-13 21:56] LABS: Troponin-I High Sensitivity 11.8 ng/L (<3.5-35.0)
--- NOTE | 2024-01-13 22:06 | PHA.MEDREC ---
Addendum entered by Abilio Lees RPh 01/13/24 22:47: Med rec reviewed, Pt taking metformin er 500 mg bid Original Note: Pharmacy Consult ? Medication Reconciliation Pharmacy has completed the medication reconciliation. Utilized sewer on IPAD and they were able to help with confirming medications with patient. Patient confirmed he is taking Jardiance 10mg 1 tab Daily and Metformin 50mg 2 tabs BID and states he was taking Lantus Solostar but states over a week ago his Dr told him to stop that for about 2-3 weeks until he follows up with the Dr. He confirmed he took his medications this morning around 0700
[2024-01-13] MEDS: Morphine Sulfate 2 MG/ML CARTRIDGE IVPUSH (23:18)
[2024-01-13 23:39] LABS: Glucose, Whole Blood 133 mg/dL (60-115)
[2024-01-13] MEDS: 0.9 % Sodium Chloride Flush 3 ML SYRINGE IVFLUSH (23:51)
[2024-01-14] VITALS (44 sets, daily range): BP systolic 76–157; BP diastolic 44–101; PULSE 24–115; RESP 16–28; TEMP 36.6–39.8; O2SAT 95–100; BMI 22.6
--- NOTE | 2024-01-14 | P.HPCC_ITS ---
History of Present Illness Date of Service: 01/14/24 Attending physician on admission: Georgina Noonan Chief Complaint: Fever, chills, vomiting Mr. Lynne is a 63-year-old Creole speaking male with past medical history of type 2 diabetes mellitus on metformin and Jardiance who presented to the ED with fever/chills, generalized body aches, nausea / vomiting, productive cough, and lower abdominal pain / cramping that began approximately 6 days ago. No chest pain or shortness of breath. On arrival to the ER, his BP was 89/55, heart rate 120, respiratory rate 18, O2 sat 98% on room air.? Temp 100.2 F. Laboratory data significant for? WBC 10.5 with a left shift,? hemoglobin 9.7, hematocrit 30.4,? BUN 21, creatinine 2.54, glucose 134, lactic acid 3.7, AST 60, alk-phos 142, albumin 3.1, beta hydroxybutyrate 0.18. UA indicative of UTI, respiratory panel negative. Imaging: Chest x-ray suspicious for atypical? infectious/inflammatory process with early infiltrates in the lower lungs. Abdominal/chest CT showed Questionable pyelonephritis with possible right-sided calyctasis vs small abscess. Trace left-sided pleural effusion. Significant thickening of the gallbladder wall suggestive of acalculous cholecystitis.? ED course:?the patient received a total of 3 L IV fluid per sepsis protocol.? 1 g acetaminophen, vancomycin, Zosyn, azithromycin for empiric coverage.? Despite IV fluid he remained hypotensive and was started on a norepinephrine drip. Review of Systems 2 Review of Systems: Systems reviewed with patient through [facility] Constitutional: Constitutional: Reports body ache(s), Reports chills, Reports fatigue, Reports fever(s) and Reports malaise Cardiovascular: Cardiovascular: Denies chest pain, Reports epigastric discomfort and Denies dyspnea Respiratory: Respiratory: Reports cough and Denies dyspnea Gastrointestinal: Gastrointestinal: Reports GI cramping, Reports nausea and Reports vomiting Musculoskeletal: Musculoskeletal: Reports myalgias Endocrine: Endocrine: Reports fatigue, Denies polyphagia and Denies polydipsia PMF Social History Social History Household Members: Family Housing: House Do you presently have visiting nurse or other home services: No Patient Tobacco Use Status: Never used Tobacco Smoked in Last 30 Days: Yes Use of substances other than those prescribed or required for medical reasons: No Have you been hit, kicked, punched, or otherwise hurt by someone within the past year? If so, by whom?: No Do you feel safe in your current relationship?: No Is there a partner from a previous relationship who is making you feel unsafe now?: No Are you made to feel afraid or neglected: No Advance Directives: No Advance Directives Information Provided: Yes Do you have a plan to hurt others: No Plan Recently lost weight without trying: No Nutrition Risks: Acute nausea or vomiting x1 week Poor oral hygiene: No Meds Allergies Allergy/AdvReac Type Severity Reaction Status Date / Time No Known Allergies Allergy Verified 01/13/24 15:07 Active Medications: Current Medications Norepinephrine Bitartrate (Levophed) 8 mg in 250 mls @ 0 mls/hr IVCONT .Q0M [facility]; Protocol Last Admin: 01/13/24 20:44 Dose: 0.05 mcg/kg/min, 6.03 mls/hr Piperacillin Sod/Tazobactam (Sod 3.375 gm/ Sodium Chloride) 50 mls @ 100 mls/hr IV Q6H MARILEE Albumin Human (Kedbumin 25 %) 100 mls @ 100 mls/hr IV ONCE ONE Stop: 01/14/24 00:36 Insulin Human Lispro (Insulin Lispro 100 Unit/Ml 3 Ml Vial) 0 unit SUBCUT Q6H [facility]; Protocol Last Admin: 01/13/24 23:40 Dose: Not Given Pharmacy Consult (Consult Rx Vancomycin Dosing) 1 each MISCELLANE DAILY PRN PRN Reason: Consult order Sodium Chloride (0.9 % Sodium Chloride Flush 3 Ml Syringe) 3 ml IVFLUSH QSHIFT [facility] Last Admin: 01/13/24 23:51 Dose: 3 ml Home Medications ?Medication ?Instructions ?Recorded ?Confirmed ?Last Taken ?Type empagliflozin 10 mg tablet 10 mg PO DAILY 01/13/24 01/13/24 01/13/24 07:00 History (Jardiance) metformin 500 mg tablet,extended 1,000 mg PO BID 01/13/24 01/13/24 01/13/24 History release 24 hr Physical Exam 2 Vital Signs: Vital Signs: Last Vital Signs Temp 102.9 F H 01/13/24 23:37 Pulse 145 H 01/13/24 23:37 Resp 33 H 01/13/24 23:37 BP 108/76 01/13/24 23:37 Pulse Ox 94 01/13/24 23:37 O2 Del Method Nasal Cannula 01/13/24 23:37 O2 Flow Rate 2 01/13/24 23:37 BMI result Body Mass Index 22.6 Const: General: cooperative, ill appearing, lethargic and other (febrile) N utritional Appearance: thin Orientation/consciousness: patient oriented x3 (answering appropriately.) and lethargic Limitations: other limitations (language barrier) HEENT: Head: Yes normocephalic and Yes atraumatic General nose exam: Normal external nose present (Nares patent, septum midline, sinuses nontender bilaterally.) Mouth: Normal oral and palatal mucosa present (No thrush, tongue in midline, mucosa moist.) Throat: Yes other (No erythema, no exudate.) Eyes: General: appearance normal, both eyes and all related structures P upils: Equal, round and reactive pupils present Neck: Neck: Yes supple (no thyromegaly, trachea midline.) Carotids: normal carotid upstroke Resp: Effort & Inspection: normal respiratory effort, able to speak in complete sentences and no cough Auscultation: clear to auscultation bilaterally (normal work of breathing, no accessory muscle use) Cardio: Jugular venous distension: no JVD Rate: tachycardic Rhythm: r egular rhythm Heart sounds: no gallops, no murmurs and no rubs Peripheral pulses: Peripheral pulses 2+ throughout GI: Inspection: Yes normal to inspection Palpation (GI): Soft to palpation (nondistended.) and nontender Auscultation: normal bowel sounds Skin: General skin exam: no rashes or lesions noted, dry skin and turgor decreased Wounds: no wounds Neuro: General: patient oriented x3 (answering appropriately.) Cranial nerves: Yes CN's II-XII intact bilaterally and Yes Equal, round and reactive pupils present Cognition (Neuro): normal cognition Extrem: General: Yes full ROM, Yes capillary refill normal and Yes no clubbing, cyanosis or edema Psych: Affect: normal affect Attitude: cooperative Results Labs 01/14/24 05:30 01/14/24 05:30 Labs: Laboratory Results - last 24 hr 01/13/24 01/13/24 01/13/24 15:43 15:49 15:52 MCV 83.7 MCH 26.7 L MCHC 31.9 RDW 13.2 Plt Count 227 MPV 10.0 Immature Gran % (Auto) Cancelled Neut % (Auto) Cancelled Lymph % (Auto) Cancelled [place] % (Auto) Cancelled Eos % (Auto) Cancelled Baso % (Auto) Cancelled Lymph # (Auto) Cancelled [place] # (Auto) Cancelled Eos # (Auto) Cancelled Baso # (Auto) Cancelled Abs Immat Gran (auto) Cancelled Absolute Neuts (auto) Cancelled Absolute Nucleated RBC 0.000 Nucleated RBC % (auto) 0.0 Neutrophils % (Manual) 85 H Band Neutrophils % 11 H Lymphocytes % (Manual) 2 L Monocytes % (Manual) 1 L Metamyelocytes % 1 Abs Neuts (Manual) 10.1 H Lymphocytes # (Manual) 0.2 L Monocytes # (Manual) 0.1 Metamyelocytes # 0.1 Toxic Vacuolation PRESENT Platelet Estimate NORMAL Plt Morphology Comment NORMAL RBC Morphology NORMAL VBG pH 7.40 VBG pCO2 36 VBG pO2 49 VBG HCO3 22 VBG O2 Saturation 75.0 VBG Base Excess -1.5 Anion Gap 14 Estim Creat Clear Calc 27.7 Estimated GFR 26 POC Glucose 118 H Random Glucose 134 H Lactic Acid 3.7 H* Lactic Acid F/U @ 2Hr Calcium 9.0 Total Bilirubin 0.6 Direct Bilirubin 0.4 AST 60 H ALT 28 Alkaline Phosphatase 142 H Troponin I High Sens 11.8 Total Protein 6.6 Albumin 3.1 L Lipase 43 Beta-Hydroxybutyrate 0.18 Urine Color Urine Appearance Urine pH Ur Specific [place] Urine Protein Urine Glucose (UA) Urine Ketones Urine Blood Urine Nitrite Ur Leukocyte Esterase Urine RBC Urine WBC Ur Squamous Epith Cells Urine Bacteria Hyaline Casts Influenza Type A (PCR) NEGATIVE Influenza Type B (PCR) NEGATIVE RSV RNA Qual (PCR) NEGATIVE SARS-CoV-2 RNA (RT-PCR) NEGATIVE 01/13/24 01/13/24 01/13/24 16:29 18:18 23:35 MCV MCH MCHC RDW Plt Count MPV Immature Gran % (Auto) Neut % (Auto) Lymph % (Auto) [place] % (Auto) Eos % (Auto) Baso % (Auto) Lymph # (Auto) [place] # (Auto) Eos # (Auto) Baso # (Auto) Abs Immat Gran (auto) Absolute Neuts (auto) Absolute Nucleated RBC Nucleated RBC % (auto) Neutrophils % (Manual) Band Neutrophils % Lymphocytes % (Manual) Monocytes % (Manual) Metamyelocytes % Abs Neuts (Manual) Lymphocytes # (Manual) Monocytes # (Manual) Metamyelocytes # Toxic Vacuolation Platelet Estimate Plt Morphology Comment RBC Morphology VBG pH VBG pCO2 VBG pO2 VBG HCO3 VBG O2 Saturation VBG Base Excess Anion Gap Estim Creat Clear Calc Estimated GFR POC Glucose 133 H Random Glucose Lactic Acid Lactic Acid F/U @ 2Hr 2.8 H* Calcium Total Bilirubin Direct Bilirubin AST ALT Alkaline Phosphatase Troponin I High Sens Total Protein Albumin Lipase Beta-Hydroxybutyrate Urine Color Yellow Urine Appearance Clear Urine pH 6.0 Ur Specific [place] 1.010 Urine Protein 30 (1+) H Urine Glucose (UA) Negative Urine Ketones Negative Urine Blood Moderate (2+) H Urine Nitrite Positive H Ur Leukocyte Esterase Moderate (2+) H Urine RBC 0-2 Urine WBC 11-20 Ur Squamous Epith Cells 0-2 Urine Bacteria 2+ Hyaline Casts 0-2 Influenza Type A (PCR) Influenza Type B (PCR) RSV RNA Qual (PCR) SARS-CoV-2 RNA (RT-PCR) Imaging Radiologist's Impressions: Impressions Chest X-Ray 01/13/24 16:38 IMPRESSION: Findings suspicious for atypical infectious/inflammatory process with early infiltrates in the lower lungs. Electronically signed by: Marjorie Nguyen MD 01/13/2024 05:35 PM EDT RP Abdomen/Pelvis CT 01/13/24 18:52 IMPRESSION: Questionable pyelonephritis with possible right-sided atelectasis versus small abscess. Perinephric and limited for targeted to annual as well as abdominal ascites. Trace of pleural effusion on the left with adjacent atelectasis. Significant thickening, gallbladder wall suggestive for acalculous cholecystitis . Fleischner guidelines were followed. Electronically signed by: Mirela Ng MD 01/13/2024 08:57 PM EDT RP Chest CT 01/13/24 18:52 IMPRESSION: Bilateral atelectasis and trace of pleural effusion on the left. Fleischner guidelines were followed. Electronically signed by: Mirela Ng MD 01/13/2024 09:01 PM EDT RP Assessment and Plan (1) Sepsis: Qualifiers: Sepsis acute organ dysfunction status: with acute organ dysfunction S epsis type: sepsis due to unspecified organism Severe sepsis acute organ dysfunction type: unspecified Severe sepsis shock status: with septic shock Q ualified Code(s): A41.9 - Sepsis, unspecified organism; R65.21 - Severe sepsis with septic shock Status: Acute (2) Acidosis, lactic: Status: Acute (3) Acute acalculous cholecystitis: Status: Acute (4) Acute pyelonephritis: Status: Acute Plan 63-year-old male with history of type 2 diabetes mellitus admitted for management of sepsis likely due to acute acalculous cholecystitis vs acute pyelonephritis. Neuro: No acute issues Cardiac: Sepsis: febrile, normal WBC with left shift, hypotension, lactic acidosis. Acute pyelonephritis and/or acute acalculous cholecystitis possible source. Fluid resuscitated with 3 L in ED. Trop negative. Levophed. Wean as tolerated. Pulmonary: No acute issues.? Renal: ALEC. Questionable pyelonephritis with possible right-sided calyctasis vs small abscess. Monitor electrolytes, renal function, intake and output. Continue empiric coverage until source is identified. Endo: Underlying DM2. SS insulin per protocol. TSH ordered.? GI: Significant thickening of the gallbladder wall suggestive of acalculous cholecystitis. Continue empiric coverage until source is identified. IR evaluation in AM.?? ID: sepsis possibly due to acute pyelonephritis and/or acute acalculous cholecystitis Volume resuscitated in the ER. Received vancomycin, Zosyn, azithromycin. Consider meropenem. Blood/urine cultures pending.? Heme/Onc: Anemia possibly due to hemodilution.? Monitor H&H. Transfuse for Hgb < 7. Psych: No acute issues. Prophylaxis: pneumatic hoses Diet:? NPO? Patient's care was discussed in detail with Dr. Noonan.? She is aware of all the above as well as the plan of care for this patient. Total time managing care of this patient today: 75 minutes.
[2024-01-14 00:11] LABS: VBG Base Excess -12.1 mmol/L; VBG HCO3 12 mmol/L (22-26); VBG pCO2 23 mmHg; VBG pH 7.31 (7.32-7.43); VBG pO2 72 mmHg
[2024-01-14] MEDS: Albumin Human 25 % 100 ML IV ×3 (00:11→02:50)
[2024-01-14] MEDS: Piperacillin Sodium/Tazobactam 3.375 GM in 0.9 % Sodium Chloride 50 ML IV (00:14)
[2024-01-14 00:15] LABS: Venous Blood Gas Refer to POC result
[2024-01-14 00:33] LABS: ~Lactic Acid-LAB USE ONLY 8.3 mmol/L (0.5-2.0)
[2024-01-14] MEDS: Lactated Ringers 1,000 ML 999 ML IV ×2 (00:45→01:51)
[2024-01-14 01:21] LABS: VBG Base Excess -6.5 mmol/L; VBG HCO3 16 mmol/L (22-26); VBG pCO2 22 mmHg; VBG pH 7.46 (7.32-7.43); VBG pO2 69 mmHg
[2024-01-14 01:21] LABS: Hematocrit 22.9 % (42.0-52.0); Hemoglobin 7.4 g/dl (14.0-18.0); Mean Corpuscular HGB Conc 32.3 g/dl (31.0-36.0); Mean Corpuscular Volume 83.6 fL (80.0-98.0); Mean Platelet Volume 10.5 fL (9.4-12.4); Platelet Count 174 X10*3/uL (160-400); Red Blood Count 2.74 X10*6/uL (4.60-5.80); Red Cell Distribution Width 13.2 % (11.0-16.0); Venous Blood Gas Refer to POC result
[2024-01-14 01:28] LABS: WBC ABN SCTR FOR CBC 1; White Blood Count 8.8 X10*3/uL (4.8-10.8)
[2024-01-14] MEDS: Sodium Bicarbonate 8.4% 50 MEQ/50 ML SYRINGE IVPUSH (01:30)
[2024-01-14] MEDS: Hydrocortisone Sod Succ/PF 100 MG VIAL IVPUSH (01:30)
[2024-01-14 01:33] LABS: Albumin Level 2.8 g/dL (3.5-5.0); Anion Gap 18 (12-20); Blood Urea Nitrogen 22 mg/dL (9-16); Calcium 7.8 mg/dL (8.4-10.2); Carbon Dioxide 14 mmol/L (22-29); Chloride 109 mmol/L (96-108); Creatinine Clr Calc Pharmacy 28.4; Estimated Glomerular Filt Rate 25; Glucose Random 138 mg/dL (60-115); Magnesium 1.4 mg/dL (1.6-2.6); Potassium 4.8 mmol/L (3.3-5.1); Sodium 136 mmol/L (135-145)
[2024-01-14] MEDS: Meropenem 1 GM VIAL IVPUSH ×3 (01:33→22:23)
[2024-01-14] MEDS: Magnesium Sulfate/H2O 2 GM/50 ML PIGGYBACK IV (01:51)
[2024-01-14 01:58] LABS: Band Neutrophils Percent 27 % (3-5); Lymphocytes Absolute Manual 1.2 X10*3/uL (1.2-4.9); Lymphocytes Percent Manual 14 % (20-40); Metamyelocytes Absolute 0.4 X10*3/uL; Metamyelocytes Percent 5 %; Monocytes Absolute Manual 0.3 X10*3/uL (0.1-1.2); Monocytes Percent Manual 3 % (2-11); Myelocytes Absolute 0.2 X10*/uL; Myelocytes Percent 2 %; Neutrophils Absolute Manual 6.7 X10*3/uL (2.0-8.3); Neutrophils Percent Manual 49 % (45-73)
[2024-01-14 02:13] LABS: Basophilic Stippling 1+ (0-2) /OIF; Burr Cells 2+ (3-5) /OIF; Dohle Bodies PRESENT; Ovalocytes 1+ (5-14) /OIF; RBC Morphology NOTED; Schistocytes 1+ (0-2) /OIF; Toxic Granulation PRESENT; Toxic Vacuolation PRESENT
[2024-01-14 02:14] LABS: Giant Platelet PRESENT; Large Platelet PRESENT; Platelet Estimate NORMAL (NORMAL); Platelet Morphology Comment NOTED
[2024-01-14 02:33] LABS: TSH reflex Free T4 0.53 uIU/mL (0.32-4.0)
--- NOTE | 2024-01-14 05:06 | P.PCNCC_ITS ---
Procedures Date of Service Date of Service: 01/14/24 <Yvette Gr NP - Last Filed: 01/14/24 21:25> 01/14/24 <Georgina Noonan MD - Last Filed: 01/14/24 08:34> Central Line Placement Right IJ: Central Line Comments: The right neck was widely prepped and draped in full sterile fashion.? Under US? guidance, the right IJ vein was cannulated on the 1st pass of the 18 g thin wall needle, with return of dark, nonpulsatile blood. ? The wire was threaded without incident.? The 16 cm x 7 [place]bourgish triple-lumen CVC was advanced into the vein up to the hub via the Seldinger technique without incident.? There was good blood return x3.? The catheter was sutured x2 and a Biopatch and dry sterile dressing were applied. The patient tolerated the procedure well with no complications. <Yvette Gr NP - Last Filed: 01/14/24 21:25> Consent for Procedure: Elective - informed consent obtained <Yvette Gr NP - Last Filed: 01/14/24 21:25> Time out performed: Yes <Yvette Gr NP - Last Filed: 01/14/24 21:25> Sterile Technique Used: Yes <LUISA Valentino Last Filed: 01/14/24 21:25> Patient placed on monitor/pulse ox: Yes <Yvette Gr NP - Last Filed: 01/14/24 21:25> prep: mask, gown and gloves <Yvette Gr NP - Last Filed: 01/14/24 21:25> Central line prep: Chlorhexidine scrub and sterile drapes applied <Yvette Gr NP - Last Filed: 01/14/24 21:25> Local anesthesia used: lidocaine 1% <LUISA Valentino Last Filed: 01/14/24 21:25> Amount of anesthesia used (ml): 3 <LUISA Valentino Last Filed: 01/14/24 21:25> Ultrasound used for placement: Yes <LUISA Valentino Last Filed: 01/14/24 21:25> Central line lumen inserted: triple <Yvette Gr NP - Last Filed: 01/14/24 21:25> Post procedure: sutured in place, good blood return, all ports aspirated, flushed, capped and sterile dressing applied <Yvette Gr NP - Last Filed: 01/14/24 21:25> Patient tolerated procedure: well and no complications <Yvette Gr NP - Last Filed: 01/14/24 21:25> Complications: none <Georgina Noonan MD - Last Filed: 01/14/24 08:34>
[2024-01-14 05:50] LABS: Hematocrit 21.9 % (42.0-52.0); Hemoglobin 7.2 g/dl (14.0-18.0); Mean Corpuscular HGB Conc 32.9 g/dl (31.0-36.0); Mean Corpuscular Hemoglobin 27.3 pg (27.0-33.0); Mean Platelet Volume 10.1 fL (9.4-12.4); Platelet Count 164 X10*3/uL (160-400); Red Blood Count 2.64 X10*6/uL (4.60-5.80); Red Cell Distribution Width 13.3 % (11.0-16.0)
[2024-01-14 06:00] LABS: WBC ABN SCTR FOR CBC 1; White Blood Count 22.1 X10*3/uL (4.8-10.8)
[2024-01-14 06:05] LABS: Albumin Level 3.4 g/dL (3.5-5.0); Anion Gap 18 (12-20); Blood Urea Nitrogen 22 mg/dL (9-16); Calcium 7.7 mg/dL (8.4-10.2); Carbon Dioxide 18 mmol/L (22-29); Chloride 106 mmol/L (96-108); Creatinine Clr Calc Pharmacy 27.8; Estimated Glomerular Filt Rate 25; Glucose Random 158 mg/dL (60-115); Magnesium 1.9 mg/dL (1.6-2.6); Potassium 3.9 mmol/L (3.3-5.1); Sodium 138 mmol/L (135-145)
--- NOTE | 2024-01-14 06:17 | PC.NURSE ---
Pt admitted to ICU from ED on 01/12 at approx 2330. Upon initial assessment- pt A&Ox4, drowsy, calm/cooperative, Voyce/video filer metal patterns utilized for assessment. Tmax 103.6 via core bladder probe. NSR/ST on tele, HR up to 140s on arrival, currently 90-100s. Levophed gtt ordered and titrated to maintain MAP > 65. TLC placed to R IJ by LUISA Gr for increasing vasopressor requirements, placement via CXR pending. STUDENT FINANCIAL SERVICES COUNSELOR aware of all critical labs for pt. Given 2L LR IV bolus, albumin 25g/100mL IV x2 bags, 1 amp of bicarb IV, mag 2g IV, and hydrocortisone 100 mg IVP. Dominguez placed per order. Tolerating sips of water. Denies pain. Skin intact. Pt aware of plan of care. Call nguyễn in reach. Bed locked in lowest position. Bed alarm on.
[2024-01-14 06:20] LABS: Band Neutrophils Percent 36 % (3-5); Lymphocytes Absolute Manual 0.4 X10*3/uL (1.2-4.9); Lymphocytes Percent Manual 2 % (20-40); Metamyelocytes Absolute 0.4 X10*3/uL; Metamyelocytes Percent 2 %; Monocytes Absolute Manual 0.4 X10*3/uL (0.1-1.2); Monocytes Percent Manual 2 % (2-11); Myelocytes Absolute 0.4 X10*/uL; Myelocytes Percent 2 %; Neutrophils Absolute Manual 20.3 X10*3/uL (2.0-8.3); Neutrophils Percent Manual 56 % (45-73)
[2024-01-14 06:21] LABS: RBC Morphology NOTED
[2024-01-14 06:22] LABS: Burr Cells 3+ (>5) /OIF; Dohle Bodies PRESENT; Large Platelet PRESENT; Ovalocytes 1+ (5-14) /OIF; Platelet Estimate NORMAL (NORMAL); Platelet Morphology Comment NOTED; Schistocytes 1+ (0-2) /OIF; Toxic Vacuolation PRESENT
[2024-01-14 06:37] LABS: Phosphorus 2.1 mg/dL (2.7-4.5)
--- NOTE | 2024-01-14 06:59 | PHA.PROG ---
Admission Date/Time: January 13, 2024 22:11 Indication: Intra-abdominal infection Weight in k.6 kg Adjusted body weight in K.232 kg Serum Creatinine - Last 168 Hours 01/13/24 01/14/24 01/14/24:43 01:10 05:30 Creatinine 2.54 H 2.61 H 2.66 H Estimated CrCl and GFR - Last 168 Hours 01/13/24 01/14/24 01/14/24 15:43 01:10 05:30 Estim Creat Clear Calc 27.7 28.4 27.8 Estimated GFR 26 25 25 Vancomycin Loading Dose: 1500 mg Current Vancomycin Dosing Regimen: 750 q24h Vancomycin Monitoring using AUC goal of 400 - 600 range with trough as surrogate marker: 523, predicted trough 17.7 Date and Time for next Vancomycin Level to be drawn: 01/13 @ 1500 Pharmacist Comments on Vancomycin Plan: Pt has very poor renal function. Being cautious and getting a trough before 2nd dose. Vancomycin dosing will take advantage of [employer] as a clinical decision support tool that uses Bayesian modeling to calculate individual patient's pharmacokinetic parameters and forecast the patient's drug concentration time course with the target goal AUC 24 range of 400 - 600 mg/L/hr.
--- NOTE | 2024-01-14 08:36 | PM.CCPN ---
Subjective Subjective Date of Service: 01/14/24 Interval History: admitted 01/13 PM d/t c/f acalulous cholecystitis c/b septic shock Critical Care Time (minutes): 60 Physical Exam Vital Signs: Vital Signs: Last Vital Signs Temp 98.4 F 01/14/24 07:00 Pulse 97 01/14/24 07:00 Resp 18 01/14/24 07:00 BP 100/70 01/14/24 07:00 Pulse Ox 100 01/14/24 07:00 O2 Del Method Nasal Cannula 01/14/24 07:00 O2 Flow Rate 4 01/14/24 07:00 BMI result Body Mass Index 22.6 Const: Other: appreciably diaphoretic General: cooperative, well developed, alert, awake and Physically active Orientation/consciousness: patient oriented x3 HEENT: Head: Yes normal to inspection, Yes normocephalic and Yes atraumatic Eyes: General: appearance normal, both eyes and all related structures Neck: Neck: Yes normal visual inspection, Yes full ROM, Yes no meningeal signs, Yes trachea midline and Yes supple Chest: Chest palpation & inspection: normal inspection of the chest Resp: Other: no appreciable rales, rhonchi, wheezing Cardio: Rate: regular rate Rhythm: regular rhythm GI: Other: appreciable tenderness right upper quadrant with some voluntary guarding, no appreciable rebound Inspection: Yes normal to inspection, No Abdominal wall edema and No distended Palpation (GI): Soft to palpation Skin: General skin exam: no rashes or lesions noted Neuro: General: patient oriented x3, tone normal, moves all extremities, no meningeal signs and no focal motor deficits Extrem: General: Yes normal to inspection, Yes full ROM, Yes capillary refill normal and Yes no clubbing, cyanosis or edema Psych: Appearance: grossly normal Objective Data Labs 01/14/24 05:30 01/14/24 05:30 Labs: Laboratory Results - last 24 hr 01/13/24 01/13/24 01/13/24 15:43 15:49 15:52 WBC 10.5 RBC 3.63 L D Hgb 9.7 L D Hct 30.4 L D MCV 83.7 MCH 26.7 L MCHC 31.9 RDW 13.2 Plt Count 227 MPV 10.0 Immature Gran % (Auto) Cancelled Neut % (Auto) Cancelled Lymph % (Auto) Cancelled [place] % (Auto) Cancelled Eos % (Auto) Cancelled Baso % (Auto) Cancelled Lymph # (Auto) Cancelled [place] # (Auto) Cancelled Eos # (Auto) Cancelled Baso # (Auto) Cancelled Abs Immat Gran (auto) Cancelled Absolute Neuts (auto) Cancelled Absolute Nucleated RBC 0.000 Nucleated RBC % (auto) 0.0 Neutrophils % (Manual) 85 H Band Neutrophils % 11 H Lymphocytes % (Manual) 2 L Monocytes % (Manual) 1 L Metamyelocytes % 1 Myelocytes % Abs Neuts (Manual) 10.1 H Lymphocytes # (Manual) 0.2 L Monocytes # (Manual) 0.1 Metamyelocytes # 0.1 Myelocytes # Toxic Granulation Toxic Vacuolation PRESENT Dohle Bodies Platelet Estimate NORMAL Large Platelets Giant Platelets Plt Morphology Comment NORMAL RBC Morphology NORMAL Basophilic Stippling Ovalocytes Perla Cells Schistocytes VBG pH 7.40 VBG pCO2 36 VBG pO2 49 VBG HCO3 22 VBG O2 Saturation 75.0 VBG Base Excess -1.5 Sodium 135 Potassium 4.3 Chloride 102 Carbon Dioxide 23 Anion Gap 14 BUN 21 H Creatinine 2.54 H Estim Creat Clear Calc 27.7 Estimated GFR 26 POC Glucose 118 H Random Glucose 134 H Lactic Acid 3.7 H* Lactic Acid F/U @ 2Hr Lactic Acid F/U @ 4Hr Calcium 9.0 Phosphorus Magnesium Total Bilirubin 0.6 Direct Bilirubin 0.4 AST 60 H ALT 28 Alkaline Phosphatase 142 H Troponin I High Sens 11.8 Total Protein 6.6 Albumin 3.1 L Lipase 43 Beta-Hydroxybutyrate 0.18 TSH Urine Color Urine Appearance Urine pH Ur Specific [place] Urine Protein Urine Glucose (UA) Urine Ketones Urine Blood Urine Nitrite Ur Leukocyte Esterase Urine RBC Urine WBC Ur Squamous Epith Cells Urine Bacteria Hyaline Casts Influenza Type A (PCR) NEGATIVE Influenza Type B (PCR) NEGATIVE RSV RNA Qual (PCR) NEGATIVE SARS-CoV-2 RNA (RT-PCR) NEGATIVE 01/13/24 01/13/24 01/13/24 16:29 18:18 23:35 WBC RBC Hgb Hct MCV MCH MCHC RDW Plt Count MPV Immature Gran % (Auto) Neut % (Auto) Lymph % (Auto) [place] % (Auto) Eos % (Auto) Baso % (Auto) Lymph # (Auto) [place] # (Auto) Eos # (Auto) Baso # (Auto) Abs Immat Gran (auto) Absolute Neuts (auto) Absolute Nucleated RBC Nucleated RBC % (auto) Neutrophils % (Manual) Band Neutrophils % Lymphocytes % (Manual) Monocytes % (Manual) Metamyelocytes % Myelocytes % Abs Neuts (Manual) Lymphocytes # (Manual) Monocytes # (Manual) Metamyelocytes # Myelocytes # Toxic Granulation Toxic Vacuolation Dohle Bodies Platelet Estimate Large Platelets Giant Platelets Plt Morphology Comment RBC Morphology Basophilic Stippling Ovalocytes Perla Cells Schistocytes VBG pH VBG pCO2 VBG pO2 VBG HCO3 VBG O2 Saturation VBG Base Excess Sodium Potassium Chloride Carbon Dioxide Anion Gap BUN Creatinine Estim Creat Clear Calc Estimated GFR POC Glucose 133 H Random Glucose Lactic Acid Lactic Acid F/U @ 2Hr 2.8 H* Lactic Acid F/U @ 4Hr Calcium Phosphorus Magnesium Total Bilirubin Direct Bilirubin AST ALT Alkaline Phosphatase Troponin I High Sens Total Protein Albumin Lipase Beta-Hydroxybutyrate TSH Urine Color Yellow Urine Appearance Clear Urine pH 6.0 Ur Specific [place] 1.010 Urine Protein 30 (1+) H Urine Glucose (UA) Negative Urine Ketones Negative Urine Blood Moderate (2+) H Urine Nitrite Positive H Ur Leukocyte Esterase Moderate (2+) H Urine RBC 0-2 Urine WBC 11-20 Ur Squamous Epith Cells 0-2 Urine Bacteria 2+ Hyaline Casts 0-2 Influenza Type A (PCR) Influenza Type B (PCR) RSV RNA Qual (PCR) SARS-CoV-2 RNA (RT-PCR) 01/14/24 01/14/24 01/14/24 00:00 00:06 01:10 WBC 8.8 RBC 2.74 L D Hgb 7.4 L D Hct 22.9 L D MCV 83.6 MCH 27.0 MCHC 32.3 RDW 13.2 Plt Count 174 MPV 10.5 Immature Gran % (Auto) Cancelled Neut % (Auto) Cancelled Lymph % (Auto) Cancelled [place] % (Auto) Cancelled Eos % (Auto) Cancelled Baso % (Auto) Cancelled Lymph # (Auto) Cancelled [place] # (Auto) Cancelled Eos # (Auto) Cancelled Baso # (Auto) Cancelled Abs Immat Gran (auto) Cancelled Absolute Neuts (auto) Cancelled Absolute Nucleated RBC 0.000 Nucleated RBC % (auto) 0.0 Neutrophils % (Manual) 49 Band Neutrophils % 27 H Lymphocytes % (Manual) 14 L Monocytes % (Manual) 3 Metamyelocytes % 5 Myelocytes % 2 Abs Neuts (Manual) 6.7 Lymphocytes # (Manual) 1.2 Monocytes # (Manual) 0.3 Metamyelocytes # 0.4 Myelocytes # 0.2 Toxic Granulation PRESENT Toxic Vacuolation PRESENT Dohle Bodies PRESENT Platelet Estimate NORMAL Large Platelets PRESENT Giant Platelets PRESENT Plt Morphology Comment NOTED RBC Morphology NOTED Basophilic Stippling 1+ (0-2) Ovalocytes 1+ (5-14) Perla Cells 2+ (3-5) Schistocytes 1+ (0-2) VBG pH 7.31 L VBG pCO2 23 VBG pO2 72 VBG HCO3 12 L VBG O2 Saturation 92.0 VBG Base Excess -12.1 Sodium 136 Potassium 4.8 Chloride 109 H Carbon Dioxide 14 L Anion Gap 18 BUN 22 H Creatinine 2.61 H Estim Creat Clear Calc 28.4 Estimated GFR 25 POC Glucose Random Glucose 138 H Lactic Acid Lactic Acid F/U @ 2Hr Lactic Acid F/U @ 4Hr 8.3 H* Calcium 7.8 L D Phosphorus 3.0 2.0 L Magnesium 1.4 L* Total Bilirubin Direct Bilirubin AST ALT Alkaline Phosphatase Troponin I High Sens Total Protein Albumin 2.8 L Lipase Beta-Hydroxybutyrate TSH 0.53 Urine Color Urine Appearance Urine pH Ur Specific [place] Urine Protein Urine Glucose (UA) Urine Ketones Urine Blood Urine Nitrite Ur Leukocyte Esterase Urine RBC Urine WBC Ur Squamous Epith Cells Urine Bacteria Hyaline Casts Influenza Type A (PCR) Influenza Type B (PCR) RSV RNA Qual (PCR) SARS-CoV-2 RNA (RT-PCR) 01/14/24 01/14/24 01:15 05:30 WBC 22.1 H RBC 2.64 L Hgb 7.2 L Hct 21.9 L MCV 83.0 MCH 27.3 MCHC 32.9 RDW 13.3 Plt Count 164 MPV 10.1 Immature Gran % (Auto) Cancelled Neut % (Auto) Cancelled Lymph % (Auto) Cancelled [place] % (Auto) Cancelled Eos % (Auto) Cancelled Baso % (Auto) Cancelled Lymph # (Auto) Cancelled [place] # (Auto) Cancelled Eos # (Auto) Cancelled Baso # (Auto) Cancelled Abs Immat Gran (auto) Cancelled Absolute Neuts (auto) Cancelled Absolute Nucleated RBC 0.000 Nucleated RBC % (auto) 0.0 Neutrophils % (Manual) 56 Band Neutrophils % 36 H Lymphocytes % (Manual) 2 L Monocytes % (Manual) 2 Metamyelocytes % 2 Myelocytes % 2 Abs Neuts (Manual) 20.3 H Lymphocytes # (Manual) 0.4 L Monocytes # (Manual) 0.4 Metamyelocytes # 0.4 Myelocytes # 0.4 Toxic Granulation Toxic Vacuolation PRESENT Dohle Bodies PRESENT Platelet Estimate NORMAL Large Platelets PRESENT Giant Platelets Plt Morphology Comment NOTED RBC Morphology NOTED Basophilic Stippling Ovalocytes 1+ (5-14) [place] Cells 3+ (>5) Schistocytes 1+ (0-2) VBG pH 7.46 H VBG pCO2 22 VBG pO2 69 VBG HCO3 16 L VBG O2 Saturation 94.0 VBG Base Excess -6.5 Sodium 138 Potassium 3.9 Chloride 106 Carbon Dioxide 18 L Anion Gap 18 BUN 22 H Creatinine 2.66 H Estim Creat Clear Calc 27.8 Estimated GFR 25 POC Glucose Random Glucose 158 H Lactic Acid Lactic Acid F/U @ 2Hr Lactic Acid F/U @ 4Hr Calcium 7.7 L Phosphorus 2.1 L Magnesium 1.9 Total Bilirubin Direct Bilirubin AST ALT Alkaline Phosphatase Troponin I High Sens Total Protein Albumin 3.4 L Lipase Beta-Hydroxybutyrate TSH Urine Color Urine Appearance Urine pH Ur Specific [place] Urine Protein Urine Glucose (UA) Urine Ketones Urine Blood Urine Nitrite Ur Leukocyte Esterase Urine RBC Urine WBC Ur Squamous Epith Cells Urine Bacteria Hyaline Casts Influenza Type A (PCR) Influenza Type B (PCR) RSV RNA Qual (PCR) SARS-CoV-2 RNA (RT-PCR) Microbiology Microbiology Results: Microbiology 01/13/24 15:43 Blood - Venous Blood Culture - Preliminary Prelim: GNR Gram Stain only 01/13/24 15:56 Blood - Venous Blood Culture - Preliminary Prelim: GNR Gram Stain only Progress Note: A&P Assessment and plan (1) Septic shock: Status: Acute (2) Acute acalculous cholecystitis: Status: Acute Plan Patient is a 63 Y M w/ diabetes mellitus, presenting initially to emergency department on 01/13 w/ abdominal pain found to have acalculous cholecystitis c/b septic shock N: no acute issues CV: septic shock; norepinephrine gtt, wean as tolerated R: no acute issues GI: NPO for procedural planning : acute renal insufficiency, to closely monitor/replete electrolytes, renal indices H: anemia, transfuse as needed ID: c/f acalculous cholecystitis, possible pyelonephritis; BCx demonstrating gram negative rods; empiric vancomycin, meropenem; to perform cholecystostomy tube today E: diabetes mellitus, insulin regimen P: no acute issues Quality Stroke Does the patient have a stroke diagnosis?: No VTE Prior VTE?: No VTE Risk Level:: Medical - moderate - high VTE Device Contraindication: N/A - Device Ordered VTE Drug Contraindication: Treatment Not Indicated
[2024-01-14] MEDS: 0.9 % Sodium Chloride Flush 3 ML SYRINGE IVFLUSH ×3 (08:42→23:00)
[2024-01-14] MEDS: Calcium Chloride 1 GM/10 ML SYRINGE IVPUSH (08:42)
[2024-01-14] MEDS: Hydrocortisone Sod Succ/PF 100 MG VIAL 50 MG IVPUSH ×3 (08:43→20:45)
[2024-01-14] MEDS: Potassium Phosphate/NS 15 MMOL/250 ML PLAST..BAG 62.5 MMOL IV (08:51)
[2024-01-14 10:07] LABS: INTERNATIONAL NORM RATIO 1.8 (0.9-1.1); Prothrombin Time 21.5 SEC (10.9-12.4)
[2024-01-14] MEDS: Ketamine HCl/NS 50 MG/5 ML SYRINGE 30 MG IVPUSH (10:20)
[2024-01-14] MEDS: Lidocaine HCl 1 % MPF 30 ML VIAL SUBCUT (10:23)
[2024-01-14] MEDS: Norepinephrine Bitartrate/D5W 8 MG/250 ML PLAST..BAG 18.08 MG IVCONT (10:35)
--- NOTE | 2024-01-14 10:38 | PM.PROC ---
Brief Operative Note Date of procedure: 01/14/24 Pre-op diagnosis: Acalculous cholecystitis, Septic shock Post-op diagnosis: same Procedure: US Cholecystostomy tube 8.5 fr drain placed bedside under US. Very thick walled gallbladder with small lumen. 10 cc thick bilious fluid aspirated and sent for culture. No immediate complications.
[2024-01-14 13:17] LABS: Glucose, Whole Blood 186 mg/dL (60-115)
--- NOTE | 2024-01-14 14:08 | P.CDIM_ITS ---
PROVIDER RESPONSE TEXT: To clarify, the appropriate diagnosis supported by the clinical indicators: Acute QUERY TEXT: PHYSICIAN'S DOCUMENTATION REQUEST Date of Query: 01/14/2024 09:15 AM EDT Patient Name: Mac Doyle Admit Date: 01/14/2024 Dear Georgina Noonan MD, A review of the medical record indicates additional documentation may be needed. Please review below and update the documentation accordingly. Clinical Indicators: H&P: Plan - Sepsis, febrile, normal wbc with left shift, hypotension, lactic acidosis. LA 3.7 H Clarify which of the following accurately represents the acuity of the Lactic acidosis within the bod y of the written Plan: Possible options might include: Acute Chronic Other (explain) Clinically unable to determine (explain) Thank you, Linda Chavez, CCS, CDIS Use of terms such as suspected, likely, concern for, or probable (associated with a specific diagnosi s that is being evaluated, monitored, or treated as if it exists) are acceptable and can be coded in the inpatient se tting, when documented at the time of discharge. Please use your independent medical judgment in providing your response. THIS QUERY IS PART OF THE PERMANENT MEDICAL RECORD
--- NOTE | 2024-01-14 14:21 | MHC.CM.PN ---
Met with pt using the [email or web address] interpreting system as pt speaks [place] Creole. Pt states he lives with his spouse, son and grandchildren - he has no services and has working glucose monitor and all DM supplies. PCP is a provider from [facility]. Pt states he has barriers to care in the form of no transportation. He states he walks everywhere he is able to. Pt will need transportation to home - likely [place]. No additional services anticipated. HCP declined.
[2024-01-14] MEDS: Ondansetron ODT 4 MG TAB.RAPDIS TRANSLINGU (14:31)
[2024-01-14 16:15] LABS: Alanine Aminotransferase 185 U/L (0-40); Albumin Level 3.4 g/dL (3.5-5.0); Alkaline Phosphatase 113 U/L (39-117); Aspartate Amino Transferase 379 U/L (5-37); Bilirubin Total 2.3 mg/dL (0.0-1.0); Blood Urea Nitrogen 27 mg/dL (9-16); Creatinine Clr Calc Pharmacy 27.6; Estimated Glomerular Filt Rate 24; Glucose Random 181 mg/dL (60-115); Magnesium 2.3 mg/dL (1.6-2.6); Phosphorus 4.3 mg/dL (2.7-4.5); Total Protein 6.2 g/dL (6.5-8.0)
[2024-01-14 16:24] LABS: Anion Gap 17 (12-20); Carbon Dioxide 18 mmol/L (22-29); Chloride 111 mmol/L (96-108); Potassium 5.6 mmol/L (3.3-5.1); Sodium 140 mmol/L (135-145)
[2024-01-14 16:34] LABS: Vancomycin Random 14.8 mcg/mL (15-20)
--- NOTE | 2024-01-14 17:02 | HE.PHANOTE ---
ZARINAO DOSE ADJUSTMENT BASED ON SCR INCREASING AND LEVEL OF 14.8. DOSE PUSHED OUT TO BEDTIME AND NEXT LEVEL ORDERED FOR 01/14 @ 2100
[2024-01-14 17:38] LABS: Glucose, Whole Blood 170 mg/dL (60-115)
[2024-01-14 19:18] LABS: Anion Gap 15 (12-20); Blood Urea Nitrogen 30 mg/dL (9-16); Carbon Dioxide 21 mmol/L (22-29); Chloride 111 mmol/L (96-108); Creatinine Clr Calc Pharmacy 27.6; Estimated Glomerular Filt Rate 24; Glucose Random 179 mg/dL (60-115); Sodium 142 mmol/L (135-145)
--- NOTE | 2024-01-14 19:24 | PC.NURSE ---
IR PA and witness of STAGE HAND obtained informed consent for procedure. Plated decorating and assembly supervisor used on tablet. IR at beside with PA and 2 RNs to insert [id number] drain to gallbladder. Time out performed 10:23 Procedure started. STAGE HAND administered 30 mg ketamine. Pt tolerated well. Drain inserted and had output of small amount dark green/brown bile color fluid. 10:38 Procedure ended. STAGE HAND at bedside to monitor vital signs. Pt self reported good effect of ketamine and stated I am just getting back to myself. Ene Jon decorating and assembly supervisor contacted on tablet post procedure.
[2024-01-14] MEDS: Furosemide 20 MG/2 ML VIAL 10 MG IVPUSH (20:45)
[2024-01-14 21:46] LABS: Hematocrit 27.8 % (42.0-52.0); Hemoglobin 9.1 g/dl (14.0-18.0); Mean Corpuscular HGB Conc 32.7 g/dl (31.0-36.0); Mean Corpuscular Hemoglobin 27.9 pg (27.0-33.0); Mean Corpuscular Volume 85.3 fL (80.0-98.0); Mean Platelet Volume 11.4 fL (9.4-12.4); Platelet Count 202 X10*3/uL (160-400); Red Blood Count 3.26 X10*6/uL (4.60-5.80); Red Cell Distribution Width 13.6 % (11.0-16.0)
[2024-01-14 21:47] LABS: WBC ABN SCTR FOR CBC 1
[2024-01-14 21:50] LABS: White Blood Count 32.3 X10*3/uL (4.8-10.8)
[2024-01-14 22:16] LABS: Band Neutrophils Percent 32 % (3-5); Lymphocytes Absolute Manual 0.6 X10*3/uL (1.2-4.9); Lymphocytes Percent Manual 2 % (20-40); Metamyelocytes Percent 3 %; Monocytes Percent Manual 3 % (2-11); Myelocytes Percent 3 %; Neutrophils Absolute Manual 28.7 X10*3/uL (2.0-8.3); Neutrophils Percent Manual 57 % (45-73)
[2024-01-14 22:19] LABS: RBC Morphology NOTED
[2024-01-14 22:20] LABS: Burr Cells 1+ (0-2) /OIF; Schistocytes 1+ (0-2) /OIF
[2024-01-14 22:21] LABS: Ovalocytes 1+ (5-14) /OIF; Platelet Estimate NORMAL (NORMAL); Platelet Morphology Comment NORMAL
[2024-01-14 22:22] LABS: Dohle Bodies PRESENT; Toxic Granulation PRESENT; Toxic Vacuolation PRESENT
[2024-01-14] MEDS: vancomycin HCL 750 MG in 0.9 % Sodium Chloride 250 ML 265 MG IV (22:57)
[2024-01-15] VITALS (15 sets, daily range): BP systolic 94–112; BP diastolic 58–78; PULSE 72–93; RESP 12–22; TEMP 35.9–36.9; O2SAT 91–99; BMI 23.2
[2024-01-15 00:13] LABS: Glucose, Whole Blood 177 mg/dL (60-115)
[2024-01-15] MEDS: Hydrocortisone Sod Succ/PF 100 MG VIAL 50 MG IVPUSH ×3 (02:04→21:46)
[2024-01-15 05:27] LABS: Hematocrit 26.5 % (42.0-52.0); Hemoglobin 8.8 g/dl (14.0-18.0); Mean Corpuscular HGB Conc 33.2 g/dl (31.0-36.0); Mean Corpuscular Hemoglobin 27.4 pg (27.0-33.0); Mean Corpuscular Volume 82.6 fL (80.0-98.0); Mean Platelet Volume 10.1 fL (9.4-12.4); Platelet Count 171 X10*3/uL (160-400); Red Blood Count 3.21 X10*6/uL (4.60-5.80); Red Cell Distribution Width 13.6 % (11.0-16.0); WBC ABN SCTR FOR CBC 1
[2024-01-15 05:32] LABS: White Blood Count 30.4 X10*3/uL (4.8-10.8)
[2024-01-15 05:42] LABS: Albumin Level 2.9 g/dL (3.5-5.0); Anion Gap 15 (12-20); Blood Urea Nitrogen 38 mg/dL (9-16); Calcium 8.5 mg/dL (8.4-10.2); Carbon Dioxide 21 mmol/L (22-29); Chloride 110 mmol/L (96-108); Creatinine Clr Calc Pharmacy 28.4; Estimated Glomerular Filt Rate 25; Glucose Random 191 mg/dL (60-115); Magnesium 2.6 mg/dL (1.6-2.6); Phosphorus 4.7 mg/dL (2.7-4.5); Potassium 4.9 mmol/L (3.3-5.1); Sodium 141 mmol/L (135-145)
[2024-01-15 05:54] LABS: Band Neutrophils Percent 20 % (3-5); Lymphocytes Absolute Manual 0.6 X10*3/uL (1.2-4.9); Lymphocytes Percent Manual 2 % (20-40); Metamyelocytes Absolute 0.3 X10*3/uL; Metamyelocytes Percent 1 %; Neutrophils Absolute Manual 29.5 X10*3/uL (2.0-8.3); Neutrophils Percent Manual 77 % (45-73)
[2024-01-15 05:55] LABS: Acanthocytes 1+ (0-2) /OIF; Large Platelet PRESENT; Platelet Estimate NORMAL (NORMAL); Platelet Morphology Comment NOTED; RBC Morphology NOTED; Toxic Vacuolation PRESENT
[2024-01-15] MEDS: Albumin Human 25 % 100 ML IV (06:21)
[2024-01-15] MEDS: Insulin Lispro 100 UNIT/ML 3 ML VIAL SUBCUT ×4 (06:21→21:47)
--- NOTE | 2024-01-15 08:27 | P.PNCC_ITS ---
Subjective Subjective Date of Service: 01/15/24 Interval History: no significant overnight events Critical Care Time (minutes): 60 Physical Exam 2 Vital Signs: Vital Signs: Last Vital Signs Temp 97.0 F 01/15/24 08:00 Pulse 79 01/15/24 08:00 Resp 18 01/15/24 08:00 BP 99/70 01/15/24 08:00 Pulse Ox 97 01/15/24 08:00 O2 Del Method Nasal Cannula 01/15/24 08:00 O2 Flow Rate 2 01/15/24 08:00 BMI result Body Mass Index 23.2 Const: General: cooperative, healthy appearing, comfortable, no acute distress, well developed, alert, awake and Physically active O rientation/consciousness: patient oriented x3 HEENT: Head: Yes normal to inspection, Yes normocephalic and Yes atraumatic Eyes: General: appearance normal, both eyes and all related structures Neck: Neck: Yes normal visual inspection, Yes full ROM, Yes no meningeal signs, Yes trachea midline and Yes supple Chest: Chest palpation & inspection: normal inspection of the chest Resp: Other: no appreciable rales, rhonchi, wheezing Effort & Inspection: normal respiratory effort Cardio: Rate: regular rate Rhythm: regular rhythm GI: Inspection: Yes normal to inspection, No Abdominal wall edema and No distended Palpation (GI): Soft to palpation, not firm, nontender, no guarding and not rigid Skin: General skin exam: no rashes or lesions noted Neuro: General: patient oriented x3, tone normal, moves all extremities, no meningeal signs and no focal motor deficits Extrem: Other: trace pitting edema to bilateral shins General: Yes normal to inspection, Yes full ROM and Yes capillary refill normal Psych: Appearance: grossly normal Objective Data Labs 01/15/24 05:09 01/15/24 05:09 Labs: Laboratory Results - last 24 hr 01/14/24 01/14/24 01/14/24 09:15 13:11 15:07 WBC 32.3 H* RBC 3.26 L D Hgb 9.1 L D Hct 27.8 L D MCV 85.3 MCH 27.9 MCHC 32.7 RDW 13.6 Plt Count 202 MPV 11.4 Immature Gran % (Auto) Cancelled Neut % (Auto) Cancelled Lymph % (Auto) Cancelled [place] % (Auto) Cancelled Eos % (Auto) Cancelled Baso % (Auto) Cancelled Lymph # (Auto) Cancelled [place] # (Auto) Cancelled Eos # (Auto) Cancelled Baso # (Auto) Cancelled Abs Immat Gran (auto) Cancelled Absolute Neuts (auto) Cancelled Absolute Nucleated RBC 0.000 Nucleated RBC % (auto) 0.0 Neutrophils % (Manual) 57 Band Neutrophils % 32 H Lymphocytes % (Manual) 2 L Monocytes % (Manual) 3 Metamyelocytes % 3 Myelocytes % 3 Abs Neuts (Manual) 28.7 H Lymphocytes # (Manual) 0.6 L Monocytes # (Manual) 1.0 Metamyelocytes # 1.0 Myelocytes # 1.0 Toxic Granulation PRESENT Toxic Vacuolation PRESENT Dohle Bodies PRESENT Platelet Estimate NORMAL Large Platelets Plt Morphology Comment NORMAL RBC Morphology NOTED Ovalocytes 1+ (5-14) [place] Cells 1+ (0-2) Acanthocytes (Spur) Schistocytes 1+ (0-2) PT 21.5 H INR 1.8 H Sodium 140 Potassium 5.6 H D Chloride 111 H Carbon Dioxide 18 L Anion Gap 17 BUN 27 H Creatinine 2.68 H Estim Creat Clear Calc 27.6 Estimated GFR 24 POC Glucose 186 H Random Glucose 181 H Calcium 9.0 D Phosphorus 4.3 Magnesium 2.3 Total Bilirubin 2.3 H AST 379 H ALT 185 H Alkaline Phosphatase 113 Total Protein 6.2 L Albumin 3.4 L Random Vancomycin 14.8 L Blood Type AB Positive Antibody Screen NEGATIVE Crossmatch See Detail 01/14/24 01/14/24 01/15/24 17:33 18:44 00:09 WBC RBC Hgb Hct MCV MCH MCHC RDW Plt Count MPV Immature Gran % (Auto) Neut % (Auto) Lymph % (Auto) [place] % (Auto) Eos % (Auto) Baso % (Auto) Lymph # (Auto) [place] # (Auto) Eos # (Auto) Baso # (Auto) Abs Immat Gran (auto) Absolute Neuts (auto) Absolute Nucleated RBC Nucleated RBC % (auto) Neutrophils % (Manual) Band Neutrophils % Lymphocytes % (Manual) Monocytes % (Manual) Metamyelocytes % Myelocytes % Abs Neuts (Manual) Lymphocytes # (Manual) Monocytes # (Manual) Metamyelocytes # Myelocytes # Toxic Granulation Toxic Vacuolation Dohle Bodies Platelet Estimate Large Platelets Plt Morphology Comment RBC Morphology Ovalocytes Perla Cells Acanthocytes ([place]) Schistocytes PT INR Sodium 142 Potassium 5.0 Chloride 111 H Carbon Dioxide 21 L Anion Gap 15 BUN 30 H Creatinine 2.68 H Estim Creat Clear Calc 27.6 Estimated GFR 24 POC Glucose 170 H 177 H Random Glucose 179 H Calcium 9.0 Phosphorus Magnesium Total Bilirubin AST ALT Alkaline Phosphatase Total Protein Albumin Random Vancomycin Blood Type Antibody Screen Crossmatch 01/15/24 05:09 WBC 30.4 H* RBC 3.21 L Hgb 8.8 L Hct 26.5 L MCV 82.6 MCH 27.4 MCHC 33.2 RDW 13.6 Plt Count 171 MPV 10.1 Immature Gran % (Auto) Cancelled Neut % (Auto) Cancelled Lymph % (Auto) Cancelled [place] % (Auto) Cancelled Eos % (Auto) Cancelled Baso % (Auto) Cancelled Lymph # (Auto) Cancelled [place] # (Auto) Cancelled Eos # (Auto) Cancelled Baso # (Auto) Cancelled Abs Immat Gran (auto) Cancelled Absolute Neuts (auto) Cancelled Absolute Nucleated RBC 0.000 Nucleated RBC % (auto) 0.0 Neutrophils % (Manual) 77 H Band Neutrophils % 20 H Lymphocytes % (Manual) 2 L Monocytes % (Manual) Metamyelocytes % 1 Myelocytes % Abs Neuts (Manual) 29.5 H Lymphocytes # (Manual) 0.6 L Monocytes # (Manual) Metamyelocytes # 0.3 Myelocytes # Toxic Granulation Toxic Vacuolation PRESENT Dohle Bodies Platelet Estimate NORMAL Large Platelets PRESENT Plt Morphology Comment NOTED RBC Morphology NOTED Ovalocytes Perla Cells Acanthocytes ([place]) 1+ (0-2) Schistocytes PT INR Sodium 141 Potassium 4.9 Chloride 110 H Carbon Dioxide 21 L Anion Gap 15 BUN 38 H Creatinine 2.61 H Estim Creat Clear Calc 28.4 Estimated GFR 25 POC Glucose Random Glucose 191 H Calcium 8.5 Phosphorus 4.7 H Magnesium 2.6 Total Bilirubin AST ALT Alkaline Phosphatase Total Protein Albumin 2.9 L Random Vancomycin Blood Type Antibody Screen Crossmatch Microbiology Microbiology Results: Microbiology 01/13/24 Unknown Urine clean catch - Clean Catch Midstream Urine Culture - Final Escherichia coli 01/14/24 10:30 Bile Gram Stain - Final 01/13/24 15:56 Blood - Venous Blood Culture - Preliminary Prelim: GNR Gram Stain only 01/13/24 15:43 Blood - Venous Blood Culture - Preliminary Prelim: GNR Gram Stain only Progress Note: A&P Assessment and plan (1) Septic shock: Status: Acute (2) Acute acalculous cholecystitis: Status: Acute Plan Patient is a 63 Y M w/ diabetes mellitus, presenting initially to emergency department on 01/13 w/ abdominal pain found to have acalculous cholecystitis c/b septic shock N: no acute issues CV: septic shock, resolved; s/p norepinephrine gtt; stress-dose steroids, to wean R: no acute issues GI: diabetic diet : acute renal insufficiency, stable; to closely monitor/replete electrolytes, renal indices H: anemia, transfuse as needed; to avoid chemical DVT prophylaxis in setting of anemia and post-cholecystostmy tube placement; mechanical devices ID: c/f acalculous cholecystitis, possible pyelonephritis; BCx demonstrating gram negative rods; empiric vancomycin, meropenem E: diabetes mellitus, insulin regimen P: no acute issues Quality Stroke Does the patient have a stroke diagnosis?: No VTE Prior VTE?: No VTE Risk Level:: Medical - moderate - high VTE Device Contraindication: N/A - Device Ordered VTE Drug Contraindication: Treatment Not Tolerated
[2024-01-15] MEDS: Meropenem 1 GM VIAL IVPUSH ×2 (08:46→21:46)
[2024-01-15] MEDS: 0.9 % Sodium Chloride Flush 3 ML SYRINGE IVFLUSH ×2 (08:51→16:41)
--- NOTE | 2024-01-15 10:54 | P.CDIM_ITS ---
PROVIDER RESPONSE TEXT: To clarify, the appropriate diagnosis supported by the clinical indicators: Anemia, unspecified QUERY TEXT: PHYSICIAN'S DOCUMENTATION REQUEST Date of Query: 01/15/2024 09:04 AM EDT Patient Name: Mac Doyle Admit Date: 01/14/2024 Dear Georgina Noonan MD, A review of the medical record indicates additional documentation may be needed. Please review below and update the documentation accordingly. Clinical Indicators: HGB - 7.2 post transfusion H/H 9.1/27.8 HCT - 21.9 BP - 131/57 Transfused 1 unit of PRBC UA + blood, nitrites, leuk est and 11 - bacteria Hypotensive ICU progress note: Anemia, transfuse as needed, avoid chemical DVT prophylaxis in setting of anemia a nd post-cholecystostomy tube placement. Based on the above, could you clarify which of the following is the most likely type of anemia you ar e evaluating, treating, and/or monitoring? Acute blood loss anemia Acute blood loss anemia with baseline chronic anemia (specify type) Anemia of chronic disease indicate if neoplastic disease, CKD, or other Chronic iron deficiency anemia due to blood loss Vitamin B12 deficiency anemia indicate etiology, such as intrinsic factor deficiency, malabsorption, transcobalamin II deficiency, dietary, etc Folate deficiency anemia indicate etiology, such as dietary, drug-induced, etc Protein deficiency anemia Anemia, unspecified Other (explain) Clinically unable to determine (explain) Thank you, Linda Chavez, CCS, CDIS Use of terms such as suspected, likely, concern for, or probable (associated with a specific diagnosi s that is being evaluated, monitored, or treated as if it exists) are acceptable and can be coded in the inpatient se tting, when documented at the time of discharge. Please use your independent medical judgment in providing your response. THIS QUERY IS PART OF THE PERMANENT MEDICAL RECORD
[2024-01-15 11:51] LABS: Glucose, Whole Blood 286 mg/dL (60-115)
[2024-01-15 16:29] LABS: Glucose, Whole Blood 234 mg/dL (60-115)
--- NOTE | 2024-01-15 17:15 | PM.EVENT ---
Event Note Date of Service: 01/15/24 Event Note: This is a 63-year-old male admitted to the ICU for septic shock due to acalculous cholecystitis status post cholecystostomy tube placement initially requiring vasopressor support, downgraded from the ICU on January 14 Septic shock due to acalculous cholecystitis/bacteremia/possible pyelonephritis Initially requiring vasopressor support, now off vasopressors with stable blood pressure cbc trending down but significantly elevated ID consult weans stress dose steroids Gram-negative ayala bacteremia Due to versus GI source Follow urine culture Continue IV antibiotics Acalculous cholecystitis Status post cholecystostomy tube placement by IR general surgery consult follow LFTs am Possible pyelonephritis with possible renal abscess Continue antibiotics Urology consult DM with hyperglycemia likely due to steroids wean hydrocortisone hold metformin, jardiance continue POCs, SSI, ADA diet ALEC likely due to sepsis bicarb improving IVF nephro if no improvement in am normocytic anemia ?due to acute infection follow cbc Transaminitis ?due to septic shock follow LFTs Hypomagnesemia Resolved with replacement Hyperkalemia Resolved Further management as per ICU progress note Time Spent With Patient Time: Total time managing care of this patient today ____ minutes.
[2024-01-15] MEDS: Lactated Ringers 1,000 ML 80 ML IVCONT (18:41)
[2024-01-15 20:29] LABS: Glucose, Whole Blood 257 mg/dL (60-115)
[2024-01-15 21:40] LABS: Vancomycin Random 15.5 mcg/mL (15-20)
--- NOTE | 2024-01-15 21:44 | HE.PHANOTE ---
[facility] Patients level came back this evening at 15.5. Patient is currently on 750 mg Q24H will continue with this dose. Predicted AUC 585. Next level to be drawn tomorrow 01/16/24 @2100. Patients phos is slowly rising, extra precaution on renal function. Level to ensure safety vs efficacy
[2024-01-15] MEDS: vancomycin HCL 750 MG in 0.9 % Sodium Chloride 250 ML 265 MG IV (21:52)
[2024-01-15] MEDS: Acetaminophen 325 MG TABLET 975 MG PO (22:30)
[2024-01-16 03:12] VITALS: BP 107/76; PULSE 68; RESP 20; TEMP 36.3; O2SAT 95
[2024-01-16 07:01] LABS: Hemoglobin 10.6 g/dl (14.0-18.0); Mean Corpuscular HGB Conc 33.1 g/dl (31.0-36.0); Mean Corpuscular Hemoglobin 27.3 pg (27.0-33.0); Mean Corpuscular Volume 82.5 fL (80.0-98.0); Mean Platelet Volume 11.6 fL (9.4-12.4); NRBC Pct Auto 0.1 /100WBC (0.0-0.2); Platelet Count 187 X10*3/uL (160-400); Red Blood Count 3.88 X10*6/uL (4.60-5.80); Red Cell Distribution Width 13.9 % (11.0-16.0)
[2024-01-16 07:29] LABS: Band Neutrophils Percent 10 % (3-5); Lymphocytes Percent Manual 1 % (20-40); Monocytes Percent Manual 5 % (2-11); Neutrophils Percent Manual 84 % (45-73); Nucleated Red Blood Cells 1 /100WBC (0-0)
[2024-01-16 07:33] LABS: Acanthocytes 2+ (3-5) /OIF; Platelet Estimate NORMAL (NORMAL); Platelet Morphology Comment NORMAL; RBC Morphology NOTED; Toxic Vacuolation PRESENT
[2024-01-16 07:36] LABS: Lymphocytes Absolute Manual 0.4 X10*3/uL (1.2-4.9); Monocytes Absolute Manual 1.8 X10*3/uL (0.1-1.2); Neutrophils Absolute Manual 34.5 X10*3/uL (2.0-8.3); White Blood Count 36.7 X10*3/uL (4.8-10.8)
[2024-01-16 07:41] VITALS: BP 131/83; PULSE 63; RESP 20; TEMP 36.3; O2SAT 97
[2024-01-16 08:23] LABS: Glucose, Whole Blood 203 mg/dL (60-115)
[2024-01-16 08:30] LABS: Alanine Aminotransferase 208 U/L (0-40); Alkaline Phosphatase 205 U/L (39-117); Anion Gap 12 (12-20); Aspartate Amino Transferase 118 U/L (5-37); Bilirubin Direct 0.3 mg/dL (0.0-0.5); Bilirubin Total 0.6 mg/dL (0.0-1.0); Blood Urea Nitrogen 49 mg/dL (9-16); Calcium 8.6 mg/dL (8.4-10.2); Carbon Dioxide 21 mmol/L (22-29); Chloride 109 mmol/L (96-108); Creatinine Clr Calc Pharmacy 32.9; Estimated Glomerular Filt Rate 29; Glucose Random 212 mg/dL (60-115); Magnesium 2.7 mg/dL (1.6-2.6); Potassium 4.3 mmol/L (3.3-5.1); Sodium 138 mmol/L (135-145)
--- NOTE | 2024-01-16 08:31 | P.CNUR_ITS ---
History of Present Illness Consult details Consult date: 01/16/24 Narrative: 63-year-old Creole speaking male with past medical history of type 2 diabetes mellitus on metformin and Jardiance who was admitted to ICU due to septic shock. S/P drain by ID on 01/14/24 for acute cholecystitis. CTAP- suggestive for pyelonephritis with possible right sided calyectasis vs small abscess, no hydronephrosis, no renal calculi. Urine c/s and blood c/s positive for E. coli. Review of Systems 2 Review of Systems: 10 point ROS negative other than stated in HPI [facility] Social History Social History Household Members: Family Housing: House Do you presently have visiting nurse or other home services: No Patient Tobacco Use Status: Never used Tobacco Smoked in Last 30 Days: Yes Use of substances other than those prescribed or required for medical reasons: No Currently Displaying Signs/Symptoms of Drug Intoxication Withdrawal: No Have you been hit, kicked, punched, or otherwise hurt by someone within the past year? If so, by whom?: No Do you feel safe in your current relationship?: No Is there a partner from a previous relationship who is making you feel unsafe now?: No Are you made to feel afraid or neglected: No Advance Directives: No Advance Directives Information Provided: Yes Do you have a plan to hurt others: No Plan Recently lost weight without trying: No Nutrition Risks: Acute nausea or vomiting x1 week Poor oral hygiene: No service: No Meds Allergies Allergy/AdvReac Type Severity Reaction Status Date / Time No Known Allergies Allergy Verified 01/13/24 15:07 Active Medications: Current Medications Hydrocortisone Sodium Succinate (Hydrocortisone Sod Succ/Pf 100 Mg Vial) 25 mg IVPUSH Q12H [facility] Vancomycin HCl 750 mg/ Sodium (Chloride) 265 mls @ 265 mls/hr IV Q24H [facility] Last Infusion: 01/15/24 23:04 Dose: Infused Insulin Human Lispro (Insulin Lispro 100 Unit/Ml 3 Ml Vial) 0 unit SUBCUT QIDACHS [facility]E; Protocol Last Admin: 01/15/24 21:47 Dose: 6 unit Meropenem (Meropenem 1 Gm Vial) 1 gm IVPUSH 1000,2200 [facility] Last Admin: 01/15/24 21:46 Dose: 1 gm Ondansetron HCl (Ondansetron Odt 4 Mg Tab.Rapdis) 4 mg TRANSLINGU Q6H PRN PRN Reason: Nausea and Vomiting Last Admin: 01/14/24 14:31 Dose: 4 mg Pharmacy Consult (Consult Rx Vancomycin Dosing) 1 each MISCELLANE DAILY PRN PRN Reason: Consult order Sodium Chloride (0.9 % Sodium Chloride Flush 3 Ml Syringe) 3 ml IVFLUSH QSHIFT [facility] Last Admin: 01/16/24 01:25 Dose: Not Given Home Medications ?Medication ?Instructions ?Recorded ?Confirmed ?Last Taken ?Type empagliflozin 10 mg tablet 10 mg PO DAILY 01/13/24 01/13/24 01/13/24 07:00 History (Jardiance) metformin 500 mg tablet,extended 1,000 mg PO BID 01/13/24 01/13/24 01/13/24 History release 24 hr Physical Exam 2 Vital Signs: Vital Signs: Last Vital Signs Temp 97.4 F 01/16/24 07:41 Pulse 63 01/16/24 07:41 Resp 20 01/16/24 07:41 BP 131/83 01/16/24 07:41 Pulse Ox 97 01/16/24 07:41 O2 Del Method Room Air 01/16/24 07:41 O2 Flow Rate 2 01/15/24 09:00 BMI result Body Mass Index 23.2 Const: General: no acute distress and well developed O rientation/consciousness: patient oriented x3 HEENT: Head: Yes normocephalic and Yes atraumatic Eyes: Conjunctivae: conjunctivae normal Neck: Neck: Yes normal visual inspection Chest: Chest palpation & inspection: normal inspection of the chest Resp: Effort & Inspection: normal respiratory effort Cardio: Rate: regular rate GI: Other: tender to palpation Inspection: Yes normal to inspection : Other: no significant CVAT Skin: General skin exam: no rashes or lesions noted Neuro: General: patient oriented x3 Extrem: General: No pedal edema Psych: Appearance: grossly normal Affect: normal affect Results Labs 01/17/24 06:06 01/17/24 06:06 Labs: Abnormal lab results 01/15/24 01/15/24 01/15/24 Range/Units 11:47 16:23 20:23 WBC (4.8-10.8) X10*3/uL RBC (4.60-5.80) X10*6/uL Hgb (14.0-18.0) g/dl Hct (42.0-52.0) % Absolute Nucleated RBC (0.0-0.012) X10*3/uL Neutrophils % (Manual) (45-73) % Band Neutrophils % (3-5) % Lymphocytes % (Manual) (20-40) % Abs Neuts (Manual) (2.0-8.3) X10*3/uL Lymphocytes # (Manual) (1.2-4.9) X10*3/uL Monocytes # (Manual) (0.1-1.2) X10*3/uL Nucleated RBCs (0-0) /100WBC Chloride (96-108) mmol/L Carbon Dioxide (22-29) mmol/L BUN (9-16) mg/dL Creatinine (0.5-1.4) mg/dL POC Glucose 286 H 234 H 257 H (60-115) mg/dL Random Glucose (60-115) mg/dL Magnesium (1.6-2.6) mg/dL AST (5-37) U/L ALT (0-40) U/L Alkaline Phosphatase (39-117) U/L Total Protein (6.5-8.0) g/dL Albumin (3.5-5.0) g/dL 01/16/24 01/16/24 Range/Units 06:06 07:44 WBC 36.7 H* (4.8-10.8) X10*3/uL RBC 3.88 L D (4.60-5.80) X10*6/uL Hgb 10.6 L D (14.0-18.0) g/dl Hct 32.0 L D (42.0-52.0) % Absolute Nucleated RBC 0.020 H (0.0-0.012) X10*3/uL Neutrophils % (Manual) 84 H (45-73) % Band Neutrophils % 10 H (3-5) % Lymphocytes % (Manual) 1 L (20-40) % Abs Neuts (Manual) 34.5 H (2.0-8.3) X10*3/uL Lymphocytes # (Manual) 0.4 L (1.2-4.9) X10*3/uL Monocytes # (Manual) 1.8 H (0.1-1.2) X10*3/uL Nucleated RBCs 1 H (0-0) /100WBC Chloride 109 H (96-108) mmol/L Carbon Dioxide 21 L (22-29) mmol/L BUN 49 H (9-16) mg/dL Creatinine 2.28 H (0.5-1.4) mg/dL POC Glucose 203 H (60-115) mg/dL Random Glucose 212 H (60-115) mg/dL Magnesium 2.7 H (1.6-2.6) mg/dL AST 118 H (5-37) U/L ALT 208 H (0-40) U/L Alkaline Phosphatase 205 H (39-117) U/L Total Protein 6.0 L (6.5-8.0) g/dL Albumin 3.0 L (3.5-5.0) g/dL Short CBC 01/16/24 Range/Units 06:06 WBC 36.7 H* (4.8-10.8) X10*3/uL Hgb 10.6 L D (14.0-18.0) g/dl Hct 32.0 L D (42.0-52.0) % Plt Count 187 (160-400) X10*3/uL BMP 01/16/24 06:06 Sodium 138 Potassium 4.3 Chloride 109 H Carbon Dioxide 21 L BUN 49 H Creatinine 2.28 H Calcium 8.6 Liver Function 01/16/24 Range/Units 06:06 Total Bilirubin 0.6 (0.0-1.0) mg/dL Direct Bilirubin 0.3 (0.0-0.5) mg/dL AST 118 H (5-37) U/L ALT 208 H (0-40) U/L Alkaline Phosphatase 205 H (39-117) U/L Albumin 3.0 L (3.5-5.0) g/dL Urine 01/13/24 Range/Units 16:29 Urine Color Yellow Urine Appearance Clear Urine pH 6.0 (5.0-9.0) Ur Specific [place] 1.010 (1.005-1.025) Urine Protein 30 (1+) H (Neg-Trace) mg/dL Urine Glucose (UA) Negative (Negative) mg/dL Collected: 01/13/24-UNK Status: COMP Req#: [id number] Received: 01/13/24 Source: [facility] Sp Desc: Clean Cat Subm Dr: Shanique Wesley MD Ordered: Urine Culture Procedure Result Verified Urine Culture Final 01/15/24 Organism 1 Escherichia coli Quant > 100,000 cfu/mL E coli M.I.C. RX --------- --- Ampicillin >=32 R Cefazolin <=4 S Ceftriaxone <=0.25 S Ciprofloxacin <=0.25 S Gentamicin <=1 S Nitrofurantoin <=16 S Trimethoprim/Sulfamethoxazole >=[address] scan report/results: report reviewed and image reviewed CT scan - pelvis: report reviewed and image reviewed Additional studies: Date of Service: 01/13/24 CT ABDOMEN AND PELVIS WITH CONTRAST CLINICAL INFORMATION: 63-year-old male with sepsis COMPARISON: None available. TECHNIQUE: Multidetector volumetric images were obtained from the superior aspect of the liver through the pubic symphysis following administration 85 mL of Omnipaque 350 intravenous contrast. Sagittal and coronal reformatted images were obtained on the technologist's workstation. Oral contrast: No This CT examination was performed using dose optimization techniques as appropriate, variously including the following: *Automated exposure control *Adjustment of mA and/or kV according to patient size (this includes techniques or standardized protocols for targeted exams where dose is matched to indication/reason for exam; i.e. extremities or head) *Use of iterative reconstruction technique DLP: 372 mGy-cm FINDINGS: LUNG BASES: There is trace of left-sided pleural effusion and adjacent airspace disease is more prominent on the left. LIVER, GALLBLADDER, AND BILIARY TREE: Liver is of low attenuation, enlarged and surrounded by small amount of ascites without intrahepatic masses or ductal dilatation gallbladder surrounded by fluid with diffuse wall thickening, measured approximately 0.7 cm. No evidence of cholelithiasis PANCREAS: Unremarkable. SPLEEN: Unremarkable. ADRENAL GLANDS: Unremarkable. KIDNEYS AND URETERS: There is perinephric fat stranding and left kidney demonstrate loss of corticomedullary differentiation. Right kidney mentation 2 mild fullness of collecting system and diffuse edema revealed low-attenuation lesion measured 2.3 x 2.1 cm most likely calyectasis but abscess could not be excluded. BLADDER: Unremarkable. GASTROINTESTINAL TRACT: There is no bowel obstruction, perforation, wall thickening. There is mild diffuse ascites more prominent in perinephric spaces and along with the psoas muscles. Appendix not identified. ABDOMINAL WALL: No significant hernia is appreciated. LYMPH NODES: Normal. VASCULAR: Unremarkable. PELVIC VISCERA: Unremarkable. OSSEOUS STRUCTURES: Unremarkable. IMPRESSION: Questionable pyelonephritis with possible right-sided atelectasis versus small abscess. Perinephric and limited for targeted to annual as well as abdominal ascites. Trace of pleural effusion on the left with adjacent atelectasis. Significant thickening, gallbladder wall suggestive for acalculous cholecystitis . Assessment and Plan (1) ALEC (acute kidney injury): Status: Acute (2) Septic shock: Status: Acute (3) Acute pyelonephritis: Status: Acute (4) Acute acalculous cholecystitis: Status: Acute Plan ALEC likely secondary to sepsis pyelonephritis, less likely abscess, no hydronephrosis Nephrology to see patient Repeat CT -would avoid IV contrast IVF hydration Procedures Date of Service Date of Service: 01/17/24
[2024-01-16] MEDS: Insulin Lispro 100 UNIT/ML 3 ML VIAL SUBCUT ×4 (08:52→21:40)
[2024-01-16] MEDS: 0.9 % Sodium Chloride Flush 3 ML SYRINGE IVFLUSH ×2 (08:53→23:42)
[2024-01-16] MEDS: Hydrocortisone Sod Succ/PF 100 MG VIAL 25 MG IVPUSH ×2 (08:57→21:40)
[2024-01-16] MEDS: Meropenem 1 GM VIAL IVPUSH (09:00)
--- NOTE | 2024-01-16 10:06 | P.CONGS_ITS ---
History of Present Illness Consult details Consult date: 01/16/24 <Mitzi Sarkar PA-C - Last Filed: 01/16/24 14:18> Requesting physician: Luda Reynoso <Efra Mcdonald MD - Last Filed: 01/16/24 14:11> Narrative: Mac Doyle is a 63-year-old Creole speaking male with PMH significant for type 2 diabetes mellitus who presented to the ED with multiple complaints including fever/chills, generalized body aches and cough followed by, nausea/vomiting, and lower abdominal pain that began approximately 6 days prior to presentation. Work up in the ED showed a mild leukocytosis, anemia, ALEC, lactic acidosis. Chest x-ray suspicious for atypical infectious/inflammatory process with early infiltrates in the lower lungs. Abdominal/chest CT showed questionable pyelonephritis with possible small abscess, thickening of the gallbladder wall suggestive of acalculous cholecystitis. Despite receiving a total of 3 L IV fluid per sepsis protocol he remained hypotensive and was started on a norepinephrine drip and admitted to the ICU for further treatment of septic shock. He was started on empiric IV rocephin and vanco. He underwent IR cholecystostomy tube placement on 01/13. He was weaned off pressors and transferred to [facility] on 01/14. General surgery was consulted for further management of the acute cholecystitis, cholecystostomy tube. He reports feeling significantly improved this morning. He still has mild abdominal pain mostly at the drain site. He is tolerating a solid diet. He reports some loose stools but no BM recorded since 01/12. <Mitzi Sarkar PA-C - Last Filed: 01/16/24 14:18> Review of Systems 2 Review of Systems: Yes all other systems are reviewed and are negative < Mitzi Sakrar PA-C - Last Filed: 01/16/24 14:18> [facility] Social History Social History: Social History Household Members: Family Housing: House Do you presently have visiting nurse or other home services: No Patient Tobacco Use Status: Never used Tobacco Smoked in Last 30 Days: Yes Use of substances other than those prescribed or required for medical reasons: No Currently Displaying Signs/Symptoms of Drug Intoxication Withdrawal: No Have you been hit, kicked, punched, or otherwise hurt by someone within the past year? If so, by whom?: No Do you feel safe in your current relationship?: No Is there a partner from a previous relationship who is making you feel unsafe now?: No Are you made to feel afraid or neglected: No Advance Directives: No Advance Directives Information Provided: Yes Do you have a plan to hurt others: No Plan Recently lost weight without trying: No Nutrition Risks: Acute nausea or vomiting x1 week Poor oral hygiene: No service: No <Mitzi Sarkar PA-C - Last Filed: 01/16/24 14:18> Meds Allergies/Adverse reactions: Allergies Allergy/AdvReac Type Severity Reaction Status Date / Time No Known Allergies Allergy Verified 01/13/24 15:07 <Mitzi Sarkar PA-C - Last Filed: 01/16/24 14:18> Active Medications: Current Medications Hydrocortisone Sodium Succinate (Hydrocortisone Sod Succ/Pf 100 Mg Vial) 25 mg IVPUSH Q12H [facility] Last Admin: 01/16/24 08:57 Dose: 25 mg Vancomycin HCl 750 mg/ Sodium (Chloride) 265 mls @ 265 mls/hr IV Q24H [facility] Last Infusion: 01/15/24 23:04 Dose: Infused Insulin Human Lispro (Insulin Lispro 100 Unit/Ml 3 Ml Vial) 0 unit SUBCUT QIDACHS [facility]; Protocol Last Admin: 01/16/24 08:52 Dose: 4 unit Meropenem (Meropenem 1 Gm Vial) 1 gm IVPUSH 1000,2200 [facility] Last Admin: 01/16/24 09:00 Dose: 1 gm Ondansetron HCl (Ondansetron Odt 4 Mg Tab.Rapdis) 4 mg TRANSLINGU Q6H PRN PRN Reason: Nausea and Vomiting Last Admin: 01/14/24 14:31 Dose: 4 mg Pharmacy Consult (Consult Rx Vancomycin Dosing) 1 each MISCELLANE DAILY PRN PRN Reason: Consult order Sodium Chloride (0.9 % Sodium Chloride Flush 3 Ml Syringe) 3 ml IVFLUSH QSHIFT [facility] Last Admin: 01/16/24 08:53 Dose: 3 ml <ELIZABETH Akhtar Last Filed: 01/16/24 14:18> Home medications: Home Medications ?Medication ?Instructions ?Recorded ?Confirmed ?Last Taken ?Type empagliflozin 10 mg tablet 10 mg PO DAILY 01/13/24 01/13/24 01/13/24 07:00 History (Jardiance) metformin 500 mg tablet,extended 1,000 mg PO BID 01/13/24 01/13/24 01/13/24 History release 24 hr <Mitzi Sarkar PA-C Function Space Last Filed: 01/16/24 14:18> Physical Exam 2 Vital Signs: Vital Signs: Last Vital Signs Temp 97.4 F 01/16/24 07:41 Pulse 63 01/16/24 07:41 Resp 20 01/16/24 07:41 BP 131/83 01/16/24 07:41 Pulse Ox 97 01/16/24 07:41 O2 Del Method Room Air 01/16/24 07:41 O2 Flow Rate 2 01/15/24 09:00 BMI result Body Mass Index 23.2 <JULIA Akhtar [employer] Space Last Filed: 01/16/24 14:18> Const: General: comfortable, no acute distress and alert <JULIA Akhtar [employer] Space Last Filed: 01/16/24 14:18> Orientation/consciousness: patient oriented x3 <JULIA Akhtar [employer] Last Filed: 01/16/24 14:18> Resp: Effort & Inspection: normal respiratory effort, able to speak in complete sentences, Actively coughing, no respiratory distress and not tachypneic <JULIA Akhtar [employer] Last Filed: 01/16/24 14:18> GI: Other: cholecystostomy tube RUQ, bilious drainage <JULIA Akhtar [employer] Last Filed: 01/16/24 14:18> Inspection: No distended and No scar <JULIA Akhtar [employer] Last Filed: 01/16/24 14:18> Palpation (GI): Soft to palpation, Tenderness to palpation present (GI) (mild RUQ/epigastric tenderness and surrounding drain site) with no rebound tenderness and no guarding <Mitzi Sarkar PA-C Function [employer] Last Filed: 01/16/24 14:18> Percussion: Yes normal to percussion <Mitzi Sarkar PA-C [employer] Last Filed: 01/16/24 14:18> Skin: General skin exam: no rashes or lesions noted <ELIZABETH Akhtar Last Filed: 01/16/24 14:18> Neuro: General: patient oriented x3 and moves all extremities <ELIZABETH Akhtar Last Filed: 01/16/24 14:18> Results Labs Result diagrams: 01/16/24 06:06 01/16/24 06:06 <ELIZABETH Akhtar Last Filed: 01/16/24 14:18> Labs: Abnormal lab results 01/15/24 01/15/24 01/15/24 Range/Units 11:47 16:23 20:23 WBC (4.8-10.8) X10*3/uL RBC (4.60-5.80) X10*6/uL Hgb (14.0-18.0) g/dl Hct (42.0-52.0) % Absolute Nucleated RBC (0.0-0.012) X10*3/uL Neutrophils % (Manual) (45-73) % Band Neutrophils % (3-5) % Lymphocytes % (Manual) (20-40) % Abs Neuts (Manual) (2.0-8.3) X10*3/uL Lymphocytes # (Manual) (1.2-4.9) X10*3/uL Monocytes # (Manual) (0.1-1.2) X10*3/uL Nucleated RBCs (0-0) /100WBC Chloride (96-108) mmol/L Carbon Dioxide (22-29) mmol/L BUN (9-16) mg/dL Creatinine (0.5-1.4) mg/dL POC Glucose 286 H 234 H 257 H (60-115) mg/dL Random Glucose (60-115) mg/dL Magnesium (1.6-2.6) mg/dL AST (5-37) U/L ALT (0-40) U/L Alkaline Phosphatase (39-117) U/L Total Protein (6.5-8.0) g/dL Albumin (3.5-5.0) g/dL 01/16/24 01/16/24 Range/Units 06:06 07:44 WBC 36.7 H* (4.8-10.8) X10*3/uL RBC 3.88 L D (4.60-5.80) X10*6/uL Hgb 10.6 L D (14.0-18.0) g/dl Hct 32.0 L D (42.0-52.0) % Absolute Nucleated RBC 0.020 H (0.0-0.012) X10*3/uL Neutrophils % (Manual) 84 H (45-73) % Band Neutrophils % 10 H (3-5) % Lymphocytes % (Manual) 1 L (20-40) % Abs Neuts (Manual) 34.5 H (2.0-8.3) X10*3/uL Lymphocytes # (Manual) 0.4 L (1.2-4.9) X10*3/uL Monocytes # (Manual) 1.8 H (0.1-1.2) X10*3/uL Nucleated RBCs 1 H (0-0) /100WBC Chloride 109 H (96-108) mmol/L Carbon Dioxide 21 L (22-29) mmol/L BUN 49 H (9-16) mg/dL Creatinine 2.28 H (0.5-1.4) mg/dL POC Glucose 203 H (60-115) mg/dL Random Glucose 212 H (60-115) mg/dL Magnesium 2.7 H (1.6-2.6) mg/dL AST 118 H (5-37) U/L ALT 208 H (0-40) U/L Alkaline Phosphatase 205 H (39-117) U/L Total Protein 6.0 L (6.5-8.0) g/dL Albumin 3.0 L (3.5-5.0) g/dL Short CBC 01/16/24 Range/Units 06:06 WBC 36.7 H* (4.8-10.8) X10*3/uL Hgb 10.6 L D (14.0-18.0) g/dl Hct 32.0 L D (42.0-52.0) % Plt Count 187 (160-400) X10*3/uL BMP 01/16/24 06:06 Sodium 138 Potassium 4.3 Chloride 109 H Carbon Dioxide 21 L BUN 49 H Creatinine 2.28 H Calcium 8.6 Liver Function 01/16/24 Range/Units 06:06 Total Bilirubin 0.6 (0.0-1.0) mg/dL Direct Bilirubin 0.3 (0.0-0.5) mg/dL AST 118 H (5-37) U/L ALT 208 H (0-40) U/L Alkaline Phosphatase 205 H (39-117) U/L Albumin 3.0 L (3.5-5.0) g/dL Urine 01/13/24 Range/Units 16:29 Urine Color Yellow Urine Appearance Clear Urine pH 6.0 (5.0-9.0) Ur Specific [place] 1.010 (1.005-1.025) Urine Protein 30 (1+) H (Neg-Trace) mg/dL Urine Glucose (UA) Negative (Negative) mg/dL All other labs normal. <ELIZABETH Akhtar Last Filed: 01/16/24 14:18> Imaging Abdomen CT scan report/results: report reviewed and image reviewed <ELIZABETH Akhtar Last Filed: 01/16/24 14:18> Assessment and Plan (1) Acute acalculous cholecystitis: Status: Acute <ELIZABETH Akhtar Last Filed: 01/16/24 14:18> 63 year old male with PMH significant for DM. From history, likely became septic from acute pyelonephritis vs PNA developed sepsis and hypotension and subsequent acalculous cholecystitis. IR cholecystostomy drain placed 01/13 with high amount of bilious output suggesting patent cystic duct. He has since improved and abdomen is very benign. Has significant leukocytosis that is trending up, ? from steroids or perinephric abscess. He claims that he has had diarrhea but no reports of this documented. If this in fact the case, C diff can be obtained to r/o as cause of leukocytosis. Cholecystitis appears appropriately treated with IV abx and cholecystostomy tube and therefore no further surgical intervention needed. Continue cholecystostomy tube for now, trend drain output. LFTs improving. As noted above <ELIZABETH Akhtar Last Filed: 01/16/24 14:18> 63 year old male with PMH significant for DM. From history, likely became septic from acute pyelonephritis vs PNA developed sepsis and hypotension and subsequent acalculous cholecystitis. IR cholecystostomy drain placed 01/13 with high amount of bilious output suggesting patent cystic duct. He has since improved and abdomen is very benign. Has significant leukocytosis that is trending up, ? from steroids or perinephric abscess. He claims that he has had diarrhea but no reports of this documented. If this in fact the case, C diff can be obtained to r/o as cause of leukocytosis but cholecystitis appears appropriately treated with IV abx and cholecystostomy tube and therefore no further surgical intervention needed. Can continue cholecystostomy tube for now. Trend drain output. As noted above <Efra Mcdonald MD - Last Filed: 01/16/24 14:11> Procedures Date of Service Date of Service: 01/16/24 <Mitzi Sarkar PA-C - Last Filed: 01/16/24 14:18> 01/16/24 <Efra Mcdonald MD - Last Filed: 01/16/24 14:11>
--- NOTE | 2024-01-16 10:20 | MHC.CM.PN ---
Per ROUNDS discussion, Patient is not yet medically cleared for dc (IV Solu-Cortef, 2 IV ABT); home is the goal and CM will continue to follow.
[2024-01-16 11:08] VITALS: BP 126/78; PULSE 77; RESP 20; TEMP 36.8; O2SAT 97
--- NOTE | 2024-01-16 11:54 | HO.PM.IMPN ---
Subjective Subjective Date of Service: 01/16/24 Interval History: Seen and examined this morning Follow-up for sepsis History obtained with the assistance of a [place] Creole application support manager via [employer] (He speaks [place] Creole as well as Persian but his preferred language is [place] Creole) Patient is awake, alert and reports improvement in his right upper quadrant abdominal pain but does still have some tenderness around the cholecystostomy tube He denies nausea, vomiting, dysuria Review of Systems Review of Systems: Yes all other systems are reviewed and are negative Constitutional Constitutional: Denies chills and Denies fever(s) Cardiovascular Cardiovascular: Denies chest pain, Denies palpitations and Denies dyspnea Respiratory Respiratory: Denies cough and Denies dyspnea Gastrointestinal Gastrointestinal: Reports abdominal pain, Denies nausea and Denies vomiting Endocrine Endocrine: Denies palpitations Physical Exam Vital Signs: Vital Signs: Last Vital Signs Temp 98.3 F 01/16/24 11:08 Pulse 77 01/16/24 11:08 Resp 20 01/16/24 11:08 BP 126/78 01/16/24 11:08 Pulse Ox 97 01/16/24 11:08 O2 Del Method Room Air 01/16/24 11:08 O2 Flow Rate 2 01/15/24 09:00 BMI result Body Mass Index 23.2 Const: Nutritional Appearance: well nourished Orientation/consciousness: patient oriented x3 HEENT: Head: Yes normocephalic and Yes atraumatic Chest: Chest palpation & inspection: normal inspection of the chest Resp: Effort & Inspection: normal respiratory effort and no respiratory distress Cardio: Rate: regular rate GI: Other: Cholecystostomy tube present right upper quadrant with bilious drainage, some tenderness to palpation around the tube; abdomen soft, nondistended Palpation (GI): Soft to palpation and nontender Neuro: General: patient oriented x3, moves all extremities and CN's II-XI intact bilaterally Cranial nerves: Yes CN's II-XII intact bilaterally Extrem: General: Yes no pedal edema Objective Data Active Medications Ceftriaxone Sodium (Ceftriaxone Sodium 2 Gm Vial) 2 gm IVPUSH Q24H [facility] Hydrocortisone Sodium Succinate (Hydrocortisone Sod Succ/Pf 100 Mg Vial) 25 mg IVPUSH Q12H [facility] Last Admin: 01/16/24 08:57 Dose: 25 mg Documented By: KELSEY Insulin Human Lispro (Insulin Lispro 100 Unit/Ml 3 Ml Vial) 0 unit SUBCUT QIDACHS [facility]; Protocol Last Admin: 01/16/24 08:52 Dose: 4 unit Documented By: KELSEY Ondansetron HCl (Ondansetron Odt 4 Mg Tab.Rapdis) 4 mg TRANSLINGU Q6H PRN PRN Reason: Nausea and Vomiting Last Admin: 01/14/24 14:31 Dose: 4 mg Documented By: GRIS Sodium Chloride (0.9 % Sodium Chloride Flush 3 Ml Syringe) [facility] Last Admin: 01/16/24 08:53 Dose: 3 ml Documented By: KELSEY Labs 01/16/24 06:06 01/16/24 06:06 Labs: Laboratory Results - last 24 hr 01/15/24 01/15/24 01/15/24 16:23 20:23 21:04 MCV MCH MCHC RDW Plt Count MPV Immature Gran % (Auto) Neut % (Auto) Lymph % (Auto) Gage % (Auto) Eos % (Auto) Baso % (Auto) Lymph # (Auto) Gage # (Auto) Eos # (Auto) Baso # (Auto) Abs Immat Gran (auto) Absolute Neuts (auto) Absolute Nucleated RBC Nucleated RBC % (auto) Neutrophils % (Manual) Band Neutrophils % Lymphocytes % (Manual) Monocytes % (Manual) Abs Neuts (Manual) Lymphocytes # (Manual) Monocytes # (Manual) Nucleated RBCs Toxic Vacuolation Platelet Estimate Plt Morphology Comment RBC Morphology Acanthocytes (Spur) Smear Path Review Anion Gap Estim Creat Clear Calc Estimated GFR POC Glucose 234 H 257 H Random Glucose Calcium Magnesium Total Bilirubin Direct Bilirubin AST ALT Alkaline Phosphatase Total Protein Albumin Random Vancomycin 15.5 01/16/24 01/16/24 06:06 07:44 MCV 82.5 MCH 27.3 MCHC 33.1 RDW 13.9 Plt Count 187 MPV 11.6 Immature Gran % (Auto) Cancelled Neut % (Auto) Cancelled Lymph % (Auto) Cancelled Gage % (Auto) Cancelled Eos % (Auto) Cancelled Baso % (Auto) Cancelled Lymph # (Auto) Cancelled Gage # (Auto) Cancelled Eos # (Auto) Cancelled Baso # (Auto) Cancelled Abs Immat Gran (auto) Cancelled Absolute Neuts (auto) Cancelled Absolute Nucleated RBC 0.020 H Nucleated RBC % (auto) 0.1 Neutrophils % (Manual) 84 H Band Neutrophils % 10 H Lymphocytes % (Manual) 1 L Monocytes % (Manual) 5 Abs Neuts (Manual) 34.5 H Lymphocytes # (Manual) 0.4 L Monocytes # (Manual) 1.8 H Nucleated RBCs 1 H Toxic Vacuolation PRESENT Platelet Estimate NORMAL Plt Morphology Comment NORMAL RBC Morphology NOTED Acanthocytes (Spur) 2+ (3-5) Smear Path Review SEE NOTE Anion Gap 12 Estim Creat Clear Calc 32.9 Estimated GFR 29 POC Glucose 203 H Random Glucose 212 H Calcium 8.6 Magnesium 2.7 H Total Bilirubin 0.6 Direct Bilirubin 0.3 AST 118 H ALT 208 H Alkaline Phosphatase 205 H Total Protein 6.0 L Albumin 3.0 L Random Vancomycin Microbiology Microbiology Results: Microbiology 01/14/24 10:30 Gram Stain - Final Bile Routine Culture - Final No growth after 2 days Anaerobic Culture - Preliminary No growth to date. 01/13/24 15:56 Blood Culture - Final Blood - Venous Escherichia coli 01/13/24 15:43 Blood Culture - Final Blood - Venous Escherichia coli 01/13/24 Unknown Urine Culture - Final Urine clean catch - Clean Catch Midstream Escherichia coli Assessment and Plan (1) Septic shock: Status: Acute (2) Acute pyelonephritis: Status: Acute Plan This is a 63-year-old male admitted to the ICU for septic shock due to acalculous cholecystitis status post cholecystostomy tube placement initially requiring vasopressor support, downgraded from the ICU on January 14 Septic shock Multifactorial due to acalculous cholecystitis/bacteremia/pyelonephritis Initially requiring vasopressor support, now off vasopressors with stable blood pressure cbc remains significantly elevated, likely in part due to steroid use. will wean steroids ID consult E. coli bacteremia Likely due to pyelo No growth from bile will change antibiotics to IV ceftriaxone. No need for anaerobic coverage at this time per ID Acalculous cholecystitis Status post cholecystostomy tube placement by IR general surgery consult -cholecystostomy tube will need to stay in place for 6 weeks. No further surgical intervention at this time pyelonephritis with possible renal abscess IV ceftriaxone as above Urology consult - plan to repeat CT scan DM with hyperglycemia likely due to steroids wean hydrocortisone hold metformin, jardiance continue POCs, SSI, ADA diet ALEC likely due to sepsis bicarb improving Continue IVF nephro consult pending normocytic anemia ?due to acute infection CBC stable Transaminitis ?due to septic shock follow LFTs Hypomagnesemia Resolved with replacement Hyperkalemia Resolved DVT prophylaxis-heparin Patient requires ongoing inpatient stay for management of bacteremia, pyelonephritis requiring IV antibiotics and specialist evaluation Quality Stroke Does the patient have a stroke diagnosis?: No VTE Prior VTE?: No VTE Risk Level:: Medical - moderate - high VTE Device Contraindication: N/A - Device Ordered VTE Drug Contraindication: Treatment Not Tolerated
--- NOTE | 2024-01-16 12:52 | PM.CNNEP ---
History of Present Illness Reason for Consult Consult date: 01/16/24 Chief Complaint Chief complaint: URI History of Present Illness Narrative: 63 y/o male (primary language is Slovenian Creole) with a medical history of diabetes mellitus here on 01/12 for septic shock (source thought to be secondary to acalculous cholecysits vs pyelonephritis). He required ICU care and vasopressor support, now s/p cholecystostomy tube placement, downgraded to medicine 01/14. Nephrology consulted for ALEC baseline creatinine 1.10 on 07/31/2301/12 Creatinine 2.54, 01/15 2.28, down from 2.61 yesterday Magnesium 2.7 today 01/15, other electrolytes unremarkable urine on 01/12 showed some mild proteinuria, moderate blood, +nitrites and leukocyte esterace CT abdomen/pelvis on 01/12 showed questionable pyelonephritis with possible right-sided atelectasis versus small abscess repeat abd CT from 01/15 pending E coli bacteremia- no growth from bile, pt on IV ceftriaxone treatment of pyelonephritis patient denies known personal or family history of kidney disease denies other known medical history outside of diabetes (was on metformin, jardiance outpatient) he states he is urinating regularly, comfortably without difficulty today denies flank pain denies shortness of breath, chest pain reports some discomfort around his cholecystostomy tube when he moves, otherwise denies pain denies lower extremity swelling Review of Systems Constitutional: Reports no additional constitutional complaints Cardiovascular: Denies chest pain, Denies lightheadedness and Denies dyspnea Respiratory: Reports chest congestion, Reports cough and Denies dyspnea Gastrointestinal: Denies abdominal pain Genitourinary: Denies hematuria, Denies oliguria, Denies difficulty urinating, Denies dysuria, Denies flank pain and Denies urinary frequency Musculoskeletal: Denies back pain and Denies arthralgias Skin/Breast: Denies rash PMFSH Social History Social History Household Members: Family Housing: House Do you presently have visiting nurse or other home services: No Patient Tobacco Use Status: Never used Tobacco Smoked in Last 30 Days: Yes Use of substances other than those prescribed or required for medical reasons: No Currently Displaying Signs/Symptoms of Drug Intoxication Withdrawal: No Have you been hit, kicked, punched, or otherwise hurt by someone within the past year? If so, by whom?: No Do you feel safe in your current relationship?: No Is there a partner from a previous relationship who is making you feel unsafe now?: No Are you made to feel afraid or neglected: No Advance Directives: No Advance Directives Information Provided: Yes Do you have a plan to hurt others: No Plan Recently lost weight without trying: No Nutrition Risks: Acute nausea or vomiting x1 week Poor oral hygiene: No service: No Meds Allergies Allergy/AdvReac Type Severity Reaction Status Date / Time No Known Allergies Allergy Verified 01/13/24 15:07 Active Medications: Current Medications Ceftriaxone Sodium (Ceftriaxone Sodium 2 Gm Vial) 2 gm IVPUSH Q24H [facility] Heparin Sodium (Porcine) (Heparin Sodium,Porcine 5,000 Unit/Ml Vial) 5,000 unit SUBCUT Q12H [facility] Hydrocortisone Sodium Succinate (Hydrocortisone Sod Succ/Pf 100 Mg Vial) 25 mg IVPUSH Q12H [facility] Last Admin: 01/16/24 08:57 Dose: 25 mg Lactated Ringer's (Lr) 1,000 mls @ 100 mls/hr IVCONT .Q10H [facility] Insulin Human Lispro (Insulin Lispro 100 Unit/Ml 3 Ml Vial) 0 unit SUBCUT QIDACHS [facility]; Protocol Last Admin: 01/16/24 08:52 Dose: 4 unit Ondansetron HCl (Ondansetron Odt 4 Mg Tab.Rapdis) 4 mg TRANSLINGU Q6H PRN PRN Reason: Nausea and Vomiting Last Admin: 01/14/24 14:31 Dose: 4 mg Sodium Chloride (0.9 % Sodium Chloride Flush 3 Ml Syringe) 3 ml IVFLUSH QSHIFT [facility] Last Admin: 01/16/24 08:53 Dose: 3 ml Home Medications ?Medication ?Instructions ?Recorded ?Confirmed ?Last Taken ?Type empagliflozin 10 mg tablet 10 mg PO DAILY 01/13/24 01/13/24 01/13/24 07:00 History (Jardiance) metformin 500 mg tablet,extended 1,000 mg PO BID 01/13/24 01/13/24 01/13/24 History release 24 hr Physical Exam Vital Signs: Last Vital Signs Temp 98.3 F 01/16/24 11:08 Pulse 77 01/16/24 11:08 Resp 20 01/16/24 11:08 BP 126/78 10/18/24 11:08 Pulse Ox 97 01/16/24 11:08 O2 Del Method Room Air 01/16/24 11:08 O2 Flow Rate 2 01/15/24 09:00 BMI result Body Mass Index 23.2 Const General: comfortable and no acute distress Orientation/consciousness: oriented to person, oriented to place and oriented to time Neck Neck: Yes no JVD Resp Effort & Inspection: able to speak in complete sentences Auscultation: rhonchi Cardio Jugular venous distension: no JVD Rate: regular rate Rhythm: regular rhythm Heart sounds: S1 normal heart sound present and S2 normal heart sound present GI Palpation (GI): Soft to palpation Rectal Exam - Male: No tenderness General: Yes no CVA tenderness Back/Spine/Pelvis Back: no CVA tenderness Skin Rashes: no rashes Neuro General: oriented to person, oriented to place and oriented to time Extrem General: Yes normal to inspection, No edema and No pedal edema Results Lab Results 01/16/24 06:06 01/16/24 06:06 Lab results: Chemistry 01/13/24 01/14/24 01/14/24 15:43 00:00 01:10 Sodium 135 136 Potassium 4.3 4.8 Carbon Dioxide 23 14 L BUN 21 H 22 H Creatinine 2.54 H 2.61 H Calcium 9.0 7.8 L D Phosphorus 3.0 2.0 L 01/14/24 01/14/24 01/14/24 05:30 15:07 18:44 Sodium 138 140 142 Potassium 3.9 5.6 H D 5.0 Carbon Dioxide 18 L 18 L 21 L BUN 22 H 27 H 30 H Creatinine 2.66 H 2.68 H 2.68 H Calcium 7.7 L 9.0 D 9.0 Phosphorus 2.1 L 4.3 01/15/24 01/16/24 05:09 06:06 Sodium 141 138 Potassium 4.9 4.3 Carbon Dioxide 21 L 21 L BUN 38 H 49 H Creatinine 2.61 H 2.28 H Calcium 8.5 8.6 Phosphorus 4.7 H Hematology 01/13/24 01/14/24 01/14/24 15:43 01:10 05:30 WBC 10.5 8.8 22.1 H Hgb 9.7 L D 7.4 L D 7.2 L Plt Count 227 174 164 01/14/24 01/15/24 01/16/24 15:07 05:09 06:06 WBC 32.3 H* 30.4 H* 36.7 H* Hgb 9.1 L D 8.8 L 10.6 L D Plt Count 202 171 187 Urinalysis 01/13/24 16:29 Urine Color Yellow Urine Appearance Clear Urine pH 6.0 Ur Specific Shafer 1.010 Urine Protein 30 (1+) H Urine Glucose (UA) Negative Urine Ketones Negative Urine Blood Moderate (2+) H Urine Nitrite Positive H Ur Leukocyte Esterase Moderate (2+) H Urine RBC 0-2 Urine WBC 11-20 Ur Squamous Epith Cells 0-2 Hyaline Casts 0-2 Assessment and Plan (1) ALEC (acute kidney injury): Status: Acute (2) Sepsis: Qualifiers: Sepsis acute organ dysfunction status: with acute organ dysfunction Sepsis type: sepsis due to unspecified organism Severe sepsis acute organ dysfunction type: unspecified Severe sepsis shock status: with septic shock Qualified Code(s): A41.9 - Sepsis, unspecified organism; R65.21 - Severe sepsis with septic shock Status: Acute (3) Acute pyelonephritis: Status: Acute Plan ALEC likely tubular injury secondary to hypoperfusion from septic shock agree/continue IVF as ordered UOP is good creatinine is stable/some improvement today repeat CT abd/pelvis pending at risk for contrast nephropathy continue supportive care, continue to monitor electrolytes and renal function daily Discussed with Dr George Taylor Date of Service Date of Service: 01/16/24
[2024-01-16] MEDS: cefTRIAXone sodium 2 GM VIAL IVPUSH (12:58)
[2024-01-16] MEDS: Heparin Sodium,Porcine 5,000 UNIT/ML VIAL 5000 UNIT SUBCUT ×2 (12:58→23:33)
[2024-01-16] MEDS: Lactated Ringers 1,000 ML 100 ML IVCONT ×2 (13:05→23:33)
[2024-01-16 13:26] LABS: Glucose, Whole Blood 258 mg/dL (60-115)
[2024-01-16 15:28] VITALS: BP 119/75; PULSE 85; RESP 20; TEMP 36.6; O2SAT 100
[2024-01-16 16:40] LABS: Glucose, Whole Blood 189 mg/dL (60-115)
[2024-01-16] MEDS: oxyCODONE HCl Immed Release 5 MG TABLET PO ×2 (18:55→23:33)
[2024-01-16 19:50] LABS: Glucose, Whole Blood 176 mg/dL (60-115)
[2024-01-16 19:56] VITALS: BP 135/76; PULSE 80; RESP 19; TEMP 36.7; O2SAT 96
[2024-01-16 23:26] VITALS: BP 133/74; PULSE 84; RESP 19; TEMP 36.6; O2SAT 94
[2024-01-17] VITALS (7 sets, daily range): BP systolic 110–132; BP diastolic 66–78; PULSE 73–92; RESP 16–19; TEMP 36.4–37.1; O2SAT 94–99
[2024-01-17 06:29] LABS: Basophils Absolute Auto 0.1 X10*3/uL (0.0-0.2); Basophils Percent Auto 0.4 % (0-2); Eosinophils Percent Auto 0.2 % (0-4); Hematocrit 35.4 % (42.0-52.0); Hemoglobin 11.8 g/dl (14.0-18.0); Imm Gran Abs Auto 0.77 X10*3/uL (0.00-0.03); Lymphocytes Absolute Auto 2.2 X10*3/uL (1.2-4.9); Lymphocytes Percent Auto 8.4 % (20-40); MANUAL DIFF FLAG SCAN; Mean Corpuscular HGB Conc 33.3 g/dl (31.0-36.0); Mean Corpuscular Hemoglobin 27.6 pg (27.0-33.0); Mean Corpuscular Volume 82.9 fL (80.0-98.0); Mean Platelet Volume 10.9 fL (9.4-12.4); Monocytes Percent Auto 3.9 % (2-11); NRBC Pct Auto 0.1 /100WBC (0.0-0.2); Neutrophils Absolute Auto 21.6 x10*3/uL (2.0-8.3); Neutrophils Percent Auto 84.1 % (45-73); Platelet Count 156 X10*3/uL (160-400); Red Blood Count 4.27 X10*6/uL (4.60-5.80); Red Cell Distribution Width 14.1 % (11.0-16.0); SCAN SMEAR FLAG 1; White Blood Count 25.7 X10*3/uL (4.8-10.8)
[2024-01-17 06:45] LABS: Anion Gap 13 (12-20); Blood Urea Nitrogen 42 mg/dL (9-16); Calcium 8.3 mg/dL (8.4-10.2); Carbon Dioxide 21 mmol/L (22-29); Chloride 108 mmol/L (96-108); Creatinine Clr Calc Pharmacy 36.9; Estimated Glomerular Filt Rate 34; Glucose Random 183 mg/dL (60-115); Magnesium 2.6 mg/dL (1.6-2.6); Potassium 4.4 mmol/L (3.3-5.1); Sodium 138 mmol/L (135-145)
[2024-01-17 07:02] LABS: SLIDE REVIEW VERIFIED
[2024-01-17 07:57] LABS: Glucose, Whole Blood 169 mg/dL (60-115)
[2024-01-17 08:14] LABS: Alanine Aminotransferase 149 U/L (0-40); Albumin Level 2.8 g/dL (3.5-5.0); Alkaline Phosphatase 148 U/L (39-117); Aspartate Amino Transferase 58 U/L (5-37); Bilirubin Direct 0.3 mg/dL (0.0-0.5); Bilirubin Total 0.6 mg/dL (0.0-1.0); Total Protein 5.9 g/dL (6.5-8.0)
[2024-01-17] MEDS: oxyCODONE HCl Immed Release 5 MG TABLET PO ×2 (08:36→13:11)
[2024-01-17] MEDS: Insulin Lispro 100 UNIT/ML 3 ML VIAL SUBCUT ×4 (08:36→21:25)
[2024-01-17] MEDS: 0.9 % Sodium Chloride Flush 3 ML SYRINGE IVFLUSH ×3 (08:36→21:26)
[2024-01-17] MEDS: Lactated Ringers 1,000 ML 100 ML IVCONT (08:38)
[2024-01-17 11:47] LABS: Glucose, Whole Blood 201 mg/dL (60-115)
[2024-01-17] MEDS: cefTRIAXone sodium 2 GM VIAL IVPUSH (12:04)
[2024-01-17] MEDS: Heparin Sodium,Porcine 5,000 UNIT/ML VIAL 5000 UNIT SUBCUT (12:04)
--- NOTE | 2024-01-17 12:38 | HO.PM.IMPN ---
Subjective Subjective Date of Service: 01/17/24 Interval History: Seen and this morning Follow-up for septic shock, pyelo, bacteremia History obtained with the assistance of a Creole hot tamale man No overnight events Feeling well this morning, no abdominal pain Review of Systems Review of Systems: Yes all other systems are reviewed and are negative Constitutional Constitutional: Denies chills and Denies fever(s) Cardiovascular Cardiovascular: Denies chest pain, Denies palpitations and Denies dyspnea Respiratory Respiratory: Denies cough and Denies dyspnea Gastrointestinal Gastrointestinal: Denies abdominal pain, Denies nausea and Denies vomiting Endocrine Endocrine: Denies palpitations Physical Exam Vital Signs: Vital Signs: Last Vital Signs Temp 97.9 F 01/17/24 11:54 Pulse 86 01/17/24 11:54 Resp 16 01/17/24 11:54 BP 126/73 01/17/24 11:54 Pulse Ox 95 01/17/24 11:54 O2 Del Method Room Air 01/17/24 11:54 O2 Flow Rate 2 01/15/24 09:00 BMI result Body Mass Index 23.2 Const: General: cooperative, comfortable, alert and awake Nutritional Appearance: well nourished Orientation/consciousness: patient oriented x3 HEENT: Head: Yes normocephalic and Yes atraumatic Chest: Chest palpation & inspection: normal inspection of the chest Resp: Effort & Inspection: normal respiratory effort, able to speak in complete sentences, no respiratory distress and no use of accessory muscles Auscultation: clear to auscultation bilaterally Cardio: Rate: regular rate GI: Other: Cholecystostomy tube present right upper quadrant with bilious drainage, abdomen soft, nondistended Neuro: General: patient oriented x3, moves all extremities and CN's II-XI intact bilaterally Cranial nerves: Yes CN's II-XII intact bilaterally Extrem: General: Yes no pedal edema Objective Data Active Medications Ceftriaxone Sodium (Ceftriaxone Sodium 2 Gm Vial) 2 gm IVPUSH Q24H [facility] Last Admin: 01/17/24 12:04 Dose: 2 gm Documented By: LIDIA Heparin Sodium (Porcine) (Heparin Sodium,Porcine 5,000 Unit/Ml Vial) 5,000 unit SUBCUT Q12H [facility] Last Admin: 01/17/24 12:04 Dose: 5,000 unit Documented By: LDIIA Hydrocortisone Sodium Succinate (Hydrocortisone Sod Succ/Pf 100 Mg Vial) 25 mg IVPUSH Q24H [facility] Lactated Ringer's (Lr) 1,000 mls @ 100 mls/hr IVCONT .Q10H [facility] Last Admin: 01/17/24 08:38 Dose: 100 mls/hr Documented By: LIDIA Insulin Human Lispro (Insulin Lispro 100 Unit/Ml 3 Ml Vial) 0 unit SUBCUT QIDACHS [facility]; Protocol Last Admin: 01/17/24 12:05 Dose: 4 unit Documented By: LIDIA Ondansetron HCl (Ondansetron Odt 4 Mg Tab.Rapdis) 4 mg TRANSLINGU Q6H PRN PRN Reason: Nausea and Vomiting Last Admin: 01/14/24 14:31 Dose: 4 mg Documented By: GRIS Oxycodone HCl (Oxycodone Hcl Immed Release 5 Mg Tablet) 5 mg PO Q6H PRN PRN Reason: Pain, Severe (Pain Scale 7-10) Last Admin: 01/17/24 08:36 Dose: 5 mg Documented By: LIDIA Sodium Chloride (0.9 % Sodium Chloride Flush 3 Ml Syringe) [address] [facility] Last Admin: 01/17/24 08:36 Dose: 3 ml Documented By: LIDIA Labs 01/17/24 06:06 01/17/24 06:06 Labs: Laboratory Results - last 24 hr 01/16/24 01/16/24 01/16/24 11:11 16:30 19:34 MCV MCH MCHC RDW Plt Count MPV Immature Gran % (Auto) Neut % (Auto) Lymph % (Auto) Gilliam % (Auto) Eos % (Auto) Baso % (Auto) Lymph # (Auto) Gilliam # (Auto) Eos # (Auto) Baso # (Auto) Abs Immat Gran (auto) Absolute Neuts (auto) Absolute Nucleated RBC Nucleated RBC % (auto) Smear Tech's Comments Anion Gap Estim Creat Clear Calc Estimated GFR POC Glucose 258 H 189 H 176 H Random Glucose Calcium Magnesium Total Bilirubin Direct Bilirubin AST ALT Alkaline Phosphatase Total Protein Albumin 01/17/24 01/17/24 01/17/24 06:06 07:49 11:06 MCV 82.9 MCH 27.6 MCHC 33.3 RDW 14.1 Plt Count 156 L MPV 10.9 Immature Gran % (Auto) 3.0 H Neut % (Auto) 84.1 H Lymph % (Auto) 8.4 L Gilliam % (Auto) 3.9 Eos % (Auto) 0.2 Baso % (Auto) 0.4 Lymph # (Auto) 2.2 Gilliam # (Auto) 1.0 Eos # (Auto) 0.0 Baso # (Auto) 0.1 Abs Immat Gran (auto) 0.77 H Absolute Neuts (auto) 21.6 H Absolute Nucleated RBC 0.030 H Nucleated RBC % (auto) 0.1 Smear Tech's Comments VERIFIED Anion Gap 13 Estim Creat Clear Calc 36.9 Estimated GFR 34 POC Glucose 169 H 201 H Random Glucose 183 H Calcium 8.3 L Magnesium 2.6 Total Bilirubin 0.6 Direct Bilirubin 0.3 AST 58 H ALT 149 H Alkaline Phosphatase 148 H Total Protein 5.9 L Albumin 2.8 L Microbiology Microbiology Results: Microbiology 01/14/24 10:30 Gram Stain - Final Bile Routine Culture - Final No growth after 2 days Anaerobic Culture - Preliminary No growth to date. Assessment and Plan (1) ALEC (acute kidney injury): Status: Acute (2) Septic shock: Status: Acute (3) Acute pyelonephritis: Status: Acute Plan This is a 63-year-old male admitted to the ICU for septic shock due to acalculous cholecystitis status post cholecystostomy tube placement initially requiring vasopressor support, downgraded from the ICU on January 14 Septic shock due to acalculous cholecystitis/bacteremia/pyelonephritis Initially requiring vasopressor support, now off vasopressors with stable blood pressure cbc elevated but trending down, likely in part due to steroid use. will wean steroids ID consult E. coli bacteremia Likely due to pyelonephritis No growth from bile antibiotics narrowed to IV ceftriaxone. No need for anaerobic coverage at this time per ID Acalculous cholecystitis Status post cholecystostomy tube placement by IR general surgery consult -cholecystostomy tube will need to stay in place for 6 weeks. No further surgical intervention at this time. outpatient follow up for tube removal pyelonephritis with possible renal abscess IV ceftriaxone as above Urology consult - less likely abscess repeat CT scan with no abscess; no hydro; no surgical intervention rec at this time DM with hyperglycemia likely due to steroids; wean hydrocortisone hold metformin, jardiance continue POCs, SSI, ADA diet ALEC likely due to sepsis bicarb, renal function improving Continue IVF Seen by Nephrology, agree with IV fluids normocytic anemia ?due to acute infection CBC stable Transaminitis ?due to septic shock LFTs trending down Hypomagnesemia Resolved with replacement Hyperkalemia Resolved DVT prophylaxis-heparin Patient requires ongoing inpatient stay for management of bacteremia, pyelonephritis requiring IV antibiotics and specialist evaluation Quality Stroke Does the patient have a stroke diagnosis?: No VTE Prior VTE?: No VTE Risk Level:: Medical - moderate - high VTE Device Contraindication: N/A - Device Ordered VTE Drug Contraindication: Treatment Not Tolerated
[2024-01-17 16:20] LABS: Glucose, Whole Blood 227 mg/dL (60-115)
[2024-01-17 20:51] LABS: Glucose, Whole Blood 177 mg/dL (60-115)
[2024-01-17] MEDS: Hydrocortisone Sod Succ/PF 100 MG VIAL 25 MG IVPUSH (21:29)
[2024-01-18] MEDS: Heparin Sodium,Porcine 5,000 UNIT/ML VIAL 5000 UNIT SUBCUT ×2 (00:13→11:29)
[2024-01-18 03:21] VITALS: BP 118/74; PULSE 71; RESP 18; TEMP 36.4; O2SAT 96
[2024-01-18 06:19] LABS: Hematocrit 33.9 % (42.0-52.0); Hemoglobin 10.9 g/dl (14.0-18.0); Mean Corpuscular HGB Conc 32.2 g/dl (31.0-36.0); Mean Corpuscular Hemoglobin 26.6 pg (27.0-33.0); Mean Corpuscular Volume 82.7 fL (80.0-98.0); Mean Platelet Volume 11.9 fL (9.4-12.4); NRBC Pct Auto 0.1 /100WBC (0.0-0.2); Platelet Count 164 X10*3/uL (160-400); Red Cell Distribution Width 14.1 % (11.0-16.0)
[2024-01-18 06:21] LABS: WBC ABN SCTR FOR CBC 1; White Blood Count 25.4 X10*3/uL (4.8-10.8)
[2024-01-18 06:35] LABS: Anion Gap 11 (12-20); Blood Urea Nitrogen 39 mg/dL (9-16); Calcium 8.2 mg/dL (8.4-10.2); Carbon Dioxide 22 mmol/L (22-29); Chloride 107 mmol/L (96-108); Estimated Glomerular Filt Rate 32; Glucose Random 239 mg/dL (60-115); Magnesium 2.1 mg/dL (1.6-2.6); Potassium 4.5 mmol/L (3.3-5.1); Sodium 135 mmol/L (135-145)
[2024-01-18 07:32] VITALS: BP 119/73; PULSE 64; RESP 20; TEMP 36.4; O2SAT 96
[2024-01-18 07:37] LABS: Band Neutrophils Percent 8 % (3-5); Eosinophils Absolute Manual 0.3 X10*3/uL (0.0-0.4); Eosinophils Percent Manual 1 % (0-4); Lymphocytes Absolute Manual 1.3 X10*3/uL (1.2-4.9); Lymphocytes Percent Manual 5 % (20-40); Metamyelocytes Percent 4 %; Monocytes Percent Manual 4 % (2-11); Myelocytes Absolute 0.5 X10*/uL; Myelocytes Percent 2 %; Neutrophils Absolute Manual 21.3 X10*3/uL (2.0-8.3); Neutrophils Percent Manual 76 % (45-73)
[2024-01-18 07:38] LABS: Large Platelet PRESENT; Platelet Estimate NORMAL (NORMAL); RBC Morphology NOTED
[2024-01-18 07:40] LABS: Ovalocytes 1+ (5-14) /OIF; Platelet Morphology Comment NOTED
[2024-01-18 07:52] LABS: Glucose, Whole Blood 218 mg/dL (60-115)
[2024-01-18] MEDS: Insulin Lispro 100 UNIT/ML 3 ML VIAL SUBCUT ×4 (08:17→19:46)
[2024-01-18] MEDS: 0.9 % Sodium Chloride Flush 3 ML SYRINGE IVFLUSH ×2 (08:17→11:29)
[2024-01-18 11:27] VITALS: BP 124/75; PULSE 67; RESP 20; TEMP 36.6; O2SAT 99
[2024-01-18] MEDS: cefTRIAXone sodium 2 GM VIAL IVPUSH (11:29)
[2024-01-18] MEDS: Lactated Ringers 1,000 ML 100 ML IVCONT ×2 (11:29→21:09)
[2024-01-18] MEDS: Acetaminophen 325 MG TABLET 650 MG PO ×2 (11:40→19:43)
[2024-01-18 11:41] LABS: Glucose, Whole Blood 175 mg/dL (60-115)
--- NOTE | 2024-01-18 13:16 | P.PNIM_ITS ---
Subjective Subjective Date of Service: 01/18/24 Interval History: Seen and examined this morning Follow-up for bacteremia, pyelo No overnight events No abdominal pain, feeling well, no fever, no chills. Tolerating diet Review of Systems Review of Systems: Yes all other systems are reviewed and are negative Constitutional Constitutional: Reports chills and Reports fever(s) Physical Exam 2 Vital Signs: Vital Signs: Last Vital Signs Temp 97.9 F 01/18/24 11:27 Pulse 67 01/18/24 11:27 Resp 20 01/18/24 11:27 BP 124/75 01/18/24 11:27 Pulse Ox 99 01/18/24 11:27 O2 Del Method Room Air 01/18/24 11:27 O2 Flow Rate 2 01/15/24 09:00 BMI result Body Mass Index 23.2 Const: General: cooperative, comfortable, alert and awake Nutritional Appearance: well nourished Orientation/consciousness: patient oriented x3 HEENT: Head: Yes normocephalic and Yes atraumatic Chest: Chest palpation & inspection: normal inspection of the chest Resp: Effort & Inspection: normal respiratory effort, able to speak in complete sentences, no respiratory distress and no use of accessory muscles A uscultation: clear to auscultation bilaterally Cardio: Rate: regular rate GI: Other: Cholecystostomy tube present right upper quadrant with bilious drainage, abdomen soft, nondistended Palpation (GI): Soft to palpation and nontender Neuro: General: patient oriented x3, moves all extremities and CN's II-XI intact bilaterally Cranial nerves: Yes CN's II-XII intact bilaterally Extrem: Other: mild edema LUE, nontender, no warmth or induration General: Yes no pedal edema Objective Data Active Medications Acetaminophen (Acetaminophen 325 Mg Tablet) 650 mg PO Q6H PRN PRN Reason: Pain, Mild (Pain Scale 1-3) Last Admin: 01/18/24 11:40 Dose: 650 mg Documented By: ANGEL Ceftriaxone Sodium (Ceftriaxone Sodium 2 Gm Vial) 2 gm IVPUSH Q24H [facility] Last Admin: 01/18/24 11:29 Dose: 2 gm Documented By: ANGEL Heparin Sodium (Porcine) (Heparin Sodium,Porcine 5,000 Unit/Ml Vial) 5,000 unit SUBCUT Q12H [facility] Last Admin: 01/18/24 11:29 Dose: 5,000 unit Documented By: ANGEL Lactated Ringer's (Lr) 1,000 mls @ 100 mls/hr IVCONT .Q10H [facility] Last Admin: 01/18/24 11:29 Dose: 100 mls/hr Documented By: ANGEL Insulin Human Lispro (Insulin Lispro 100 Unit/Ml 3 Ml Vial) 0 unit SUBCUT QIDACHS [facility]; Protocol Last Admin: 01/18/24 11:29 Dose: 2 unit Documented By: ANGEL Ondansetron HCl (Ondansetron Odt 4 Mg Tab.Rapdis) 4 mg TRANSLINGU Q6H PRN PRN Reason: Nausea and Vomiting Last Admin: 01/14/24 14:31 Dose: 4 mg Documented By: GRIS Oxycodone HCl (Oxycodone Hcl Immed Release 5 Mg Tablet) 5 mg PO Q6H PRN PRN Reason: Pain, Severe (Pain Scale 7-10) Last Admin: 01/17/24 13:11 Dose: 5 mg Documented By: LIDIA Sodium Chloride (0.9 % Sodium Chloride Flush 3 Ml Syringe) [facility] Last Admin: 01/18/24 11:29 Dose: 3 ml Documented By: ANGEL Labs 01/18/24 05:37 01/18/24 05:37 Labs: Laboratory Results - last 24 hr 01/17/24 01/17/24 01/18/24 16:17 20:32 05:37 MCV 82.7 MCH 26.6 L MCHC 32.2 RDW 14.1 Plt Count 164 MPV 11.9 Immature Gran % (Auto) Cancelled Neut % (Auto) Cancelled Lymph % (Auto) Cancelled [place] % (Auto) Cancelled Eos % (Auto) Cancelled Baso % (Auto) Cancelled Lymph # (Auto) Cancelled [place] # (Auto) Cancelled Eos # (Auto) Cancelled Baso # (Auto) Cancelled Abs Immat Gran (auto) Cancelled Absolute Neuts (auto) Cancelled Absolute Nucleated RBC 0.020 H Nucleated RBC % (auto) 0.1 Neutrophils % (Manual) 76 H Band Neutrophils % 8 H Lymphocytes % (Manual) 5 L Monocytes % (Manual) 4 Eosinophils % (Manual) 1 Metamyelocytes % 4 Myelocytes % 2 Abs Neuts (Manual) 21.3 H Lymphocytes # (Manual) 1.3 Monocytes # (Manual) 1.0 Eosinophils # (Manual) 0.3 Metamyelocytes # 1.0 Myelocytes # 0.5 Platelet Estimate NORMAL Large Platelets PRESENT Plt Morphology Comment NOTED RBC Morphology NOTED Ovalocytes 1+ (5-14) Anion Gap 11 L Estim Creat Clear Calc 35.0 Estimated GFR 32 POC Glucose 227 H 177 H Random Glucose 239 H Calcium 8.2 L Magnesium 2.1 01/18/24 01/18/24 07:37 11:29 MCV MCH MCHC RDW Plt Count MPV Immature Gran % (Auto) Neut % (Auto) Lymph % (Auto) [place] % (Auto) Eos % (Auto) Baso % (Auto) Lymph # (Auto) [place] # (Auto) Eos # (Auto) Baso # (Auto) Abs Immat Gran (auto) Absolute Neuts (auto) Absolute Nucleated RBC Nucleated RBC % (auto) Neutrophils % (Manual) Band Neutrophils % Lymphocytes % (Manual) Monocytes % (Manual) Eosinophils % (Manual) Metamyelocytes % Myelocytes % Abs Neuts (Manual) Lymphocytes # (Manual) Monocytes # (Manual) Eosinophils # (Manual) Metamyelocytes # Myelocytes # Platelet Estimate Large Platelets Plt Morphology Comment RBC Morphology Ovalocytes Anion Gap Estim Creat Clear Calc Estimated GFR POC Glucose 218 H 175 H Random Glucose Calcium Magnesium Microbiology Microbiology Results: Microbiology 01/14/24 10:30 Gram Stain - Final Bile Routine Culture - Final No growth after 2 days Anaerobic Culture - Preliminary No growth to date. Assessment and Plan (1) ALEC (acute kidney injury): Status: Acute (2) Septic shock: Status: Acute (3) Acute pyelonephritis: Status: Acute (4) Acute acalculous cholecystitis: Status: Acute Plan This is a 63-year-old male admitted to the ICU for septic shock due to acalculous cholecystitis status post cholecystostomy tube placement initially requiring vasopressor support, downgraded from the ICU on January 14 Septic shock due to acalculous cholecystitis/bacteremia/pyelonephritis Initially requiring vasopressor support, now off vasopressors with stable blood pressure cbc elevated but trending down, bands trending down. overall clinically improving. persistent leukocytosis likely in part due to steroid use. steroids weaned off follow CBC E. coli bacteremia Likely due to pyelonephritis No growth from bile antibiotics narrowed to IV ceftriaxone. No need for anaerobic coverage at this time per ID. Acalculous cholecystitis Status post cholecystostomy tube placement by IR general surgery consult -cholecystostomy tube will need to stay in place for 6 weeks. No further surgical intervention at this time. outpatient follow up with surgery for tube removal pyelonephritis with possible renal abscess IV ceftriaxone as above Urology consult - less likely abscess repeat CT scan with no abscess; no hydro; no surgical intervention rec at this time DM with hyperglycemia likely due to steroids; wean hydrocortisone hold metformin, jardiance continue POCs, SSI, ADA diet ALEC likely due to ATN from sepsis renal function plateaued Continue IVF Seen by Nephrology, agree with IV fluids follow BMP normocytic anemia ?due to acute infection CBC stable Transaminitis ?due to septic shock LFTs trending down Hypomagnesemia Resolved with replacement Hyperkalemia Resolved DVT prophylaxis-heparin Patient requires ongoing inpatient stay for management of bacteremia, pyelonephritis requiring IV antibiotics and specialist evaluation Quality Stroke Does the patient have a stroke diagnosis?: No VTE Prior VTE?: No VTE Risk Level:: Medical - moderate - high VTE Device Contraindication: N/A - Device Ordered VTE Drug Contraindication: Treatment Not Tolerated
[2024-01-18 15:26] VITALS: BP 130/81; PULSE 60; RESP 16; TEMP 36.7; O2SAT 100
[2024-01-18] MEDS: oxyCODONE HCl Immed Release 5 MG TABLET PO (16:08)
[2024-01-18 16:46] LABS: Glucose, Whole Blood 176 mg/dL (60-115)
[2024-01-18 19:54] LABS: Glucose, Whole Blood 182 mg/dL (60-115)
[2024-01-18 20:00] VITALS: BP 125/75; PULSE 71; RESP 16; TEMP 36.6; O2SAT 96
[2024-01-19] VITALS: BP 141/81; PULSE 71; RESP 20; TEMP 36.5; O2SAT 96
[2024-01-19] MEDS: Heparin Sodium,Porcine 5,000 UNIT/ML VIAL 5000 UNIT SUBCUT ×2 (00:54→11:49)
[2024-01-19] MEDS: 0.9 % Sodium Chloride Flush 3 ML SYRINGE IVFLUSH (00:55)
[2024-01-19 03:33] VITALS: BP 148/83; PULSE 63; RESP 21; TEMP 36.2; O2SAT 97
[2024-01-19] MEDS: Lactated Ringers 1,000 ML 100 ML IVCONT (05:33)
[2024-01-19] MEDS: oxyCODONE HCl Immed Release 5 MG TABLET PO (05:33)
[2024-01-19 06:28] LABS: Hematocrit 34.3 % (42.0-52.0); Hemoglobin 11.1 g/dl (14.0-18.0); Mean Corpuscular HGB Conc 32.4 g/dl (31.0-36.0); Mean Corpuscular Hemoglobin 26.9 pg (27.0-33.0); Mean Corpuscular Volume 83.3 fL (80.0-98.0); Mean Platelet Volume 11.9 fL (9.4-12.4); Platelet Count 184 X10*3/uL (160-400); Red Blood Count 4.12 X10*6/uL (4.60-5.80); Red Cell Distribution Width 14.1 % (11.0-16.0); White Blood Count 18.8 X10*3/uL (4.8-10.8)
[2024-01-19 06:39] LABS: Anion Gap 11 (12-20); Blood Urea Nitrogen 32 mg/dL (9-16); Calcium 8.7 mg/dL (8.4-10.2); Carbon Dioxide 24 mmol/L (22-29); Chloride 109 mmol/L (96-108); Creatinine Clr Calc Pharmacy 45.2; Estimated Glomerular Filt Rate 42; Glucose Random 172 mg/dL (60-115); Magnesium 1.9 mg/dL (1.6-2.6); Potassium 4.4 mmol/L (3.3-5.1); Sodium 140 mmol/L (135-145)
[2024-01-19 07:17] LABS: Band Neutrophils Percent 9 % (3-5); Eosinophils Absolute Manual 0.4 X10*3/uL (0.0-0.4); Eosinophils Percent Manual 2 % (0-4); Lymphocytes Absolute Manual 4.9 X10*3/uL (1.2-4.9); Lymphocytes Percent Manual 26 % (20-40); Metamyelocytes Absolute 0.8 X10*3/uL; Metamyelocytes Percent 4 %; Monocytes Absolute Manual 0.8 X10*3/uL (0.1-1.2); Monocytes Percent Manual 4 % (2-11); Myelocytes Absolute 0.2 X10*/uL; Myelocytes Percent 1 %; Neutrophils Absolute Manual 11.8 X10*3/uL (2.0-8.3); Neutrophils Percent Manual 54 % (45-73)
[2024-01-19 07:18] LABS: Large Platelet PRESENT; Ovalocytes 1+ (5-14) /OIF; Platelet Estimate NORMAL (NORMAL); Platelet Morphology Comment NOTED; Polychromasia 1+ (0-2) /OIF; RBC Morphology NOTED
[2024-01-19 07:33] VITALS: BP 134/74; PULSE 63; RESP 17; TEMP 36.3; O2SAT 97
[2024-01-19 08:02] LABS: Glucose, Whole Blood 163 mg/dL (60-115)
[2024-01-19] MEDS: Insulin Lispro 100 UNIT/ML 3 ML VIAL SUBCUT ×2 (08:11→11:52)
--- NOTE | 2024-01-19 09:11 | PM.PNNEP ---
Subjective Subjective Date of Service: 01/19/24 Interval history: 63 y/o male (primary language is Guyanese Creole) with a medical history of diabetes mellitus here on 01/12 for septic shock (source thought to be secondary to acalculous cholecysits vs pyelonephritis). He required ICU care and vasopressor support, now s/p cholecystostomy tube placement, downgraded to medicine 01/14. Nephrology consulted for ALEC baseline creatinine 1.10 on 07/31/2301/12 Creatinine 2.54, today 1.66 (down from 2.14 yesterday) electrolytes unremarkable urine on 01/12 showed some mild proteinuria, moderate blood, +nitrites and leukocyte esterace CT abdomen/pelvis on 01/12 showed questionable pyelonephritis with possible right-sided atelectasis versus small abscess repeat abd CT from 01/15 showed striated parenchymal pattern probably related to prior IV contrast and ATN; superimposed pyelonephritis cannot be confirmed or excluded. Question mild fullness of right renal collecting system, unchanged compared to 3 days prior. Left renal collecting system appears unremarkable. No hydrouereter or calculi seen. E coli bacteremia- no growth from bile, pt on IV ceftriaxone treatment of pyelonephritis patient denies known personal or family history of kidney disease denies other known medical history outside of diabetes (was on metformin, jardiance outpatient) he states he is urinating regularly, comfortably without difficulty today denies flank pain denies shortness of breath, chest pain reports some discomfort around his cholecystostomy tube when he moves/coughs, otherwise denies pain denies lower extremity swelling Physical Exam Vital Signs: Vital Signs: Last Vital Signs Temp 97.4 F 01/19/24 07:33 Pulse 63 01/19/24 07:33 Resp 17 01/19/24 07:33 BP 134/74 01/19/24 07:33 Pulse Ox 97 01/19/24 07:33 O2 Del Method Room Air 01/19/24 07:33 O2 Flow Rate 2 01/15/24 09:00 BMI result Body Mass Index 23.2 Const: General: comfortable and no acute distress Orientation/consciousness: oriented to person, oriented to place and oriented to time Neck: Neck: Yes no JVD Resp: Effort & Inspection: able to speak in complete sentences Auscultation: rhonchi Cardio: Jugular venous distension: no JVD Rate: regular rate Rhythm: regular rhythm Heart sounds: S1 normal heart sound present and S2 normal heart sound present GI: Palpation (GI): Soft to palpation Rectal Exam - Male: No tenderness : General: Yes no CVA tenderness Back/Spine/Pelvis: Back: no CVA tenderness Skin: Rashes: no rashes Neuro: General: oriented to person, oriented to place and oriented to time Extrem: General: Yes normal to inspection, No edema and No pedal edema Objective Data Labs 01/19/24 05:48 01/19/24 05:48 Labs: Laboratory Results - last 24 hr 01/18/24 01/18/24 01/18/24 11:29 16:43 19:44 WBC RBC Hgb Hct MCV MCH MCHC RDW Plt Count MPV Immature Gran % (Auto) Neut % (Auto) Lymph % (Auto) [place] % (Auto) Eos % (Auto) Baso % (Auto) Lymph # (Auto) [place] # (Auto) Eos # (Auto) Baso # (Auto) Abs Immat Gran (auto) Absolute Neuts (auto) Absolute Nucleated RBC Nucleated RBC % (auto) Neutrophils % (Manual) Band Neutrophils % Lymphocytes % (Manual) Monocytes % (Manual) Eosinophils % (Manual) Metamyelocytes % Myelocytes % Abs Neuts (Manual) Lymphocytes # (Manual) Monocytes # (Manual) Eosinophils # (Manual) Metamyelocytes # Myelocytes # Platelet Estimate Large Platelets Plt Morphology Comment RBC Morphology Polychromasia Ovalocytes Sodium Potassium Chloride Carbon Dioxide Anion Gap BUN Creatinine Estim Creat Clear Calc Estimated GFR POC Glucose 175 H 176 H 182 H Random Glucose Calcium Magnesium 01/19/24 01/19/24 05:48 07:42 WBC 18.8 H RBC 4.12 L Hgb 11.1 L Hct 34.3 L MCV 83.3 MCH 26.9 L MCHC 32.4 RDW 14.1 Plt Count 184 MPV 11.9 Immature Gran % (Auto) Cancelled Neut % (Auto) Cancelled Lymph % (Auto) Cancelled [place] % (Auto) Cancelled Eos % (Auto) Cancelled Baso % (Auto) Cancelled Lymph # (Auto) Cancelled [place] # (Auto) Cancelled Eos # (Auto) Cancelled Baso # (Auto) Cancelled Abs Immat Gran (auto) Cancelled Absolute Neuts (auto) Cancelled Absolute Nucleated RBC 0.000 Nucleated RBC % (auto) 0.0 Neutrophils % (Manual) 54 Band Neutrophils % 9 H Lymphocytes % (Manual) 26 Monocytes % (Manual) 4 Eosinophils % (Manual) 2 Metamyelocytes % 4 Myelocytes % 1 Abs Neuts (Manual) 11.8 H Lymphocytes # (Manual) 4.9 Monocytes # (Manual) 0.8 Eosinophils # (Manual) 0.4 Metamyelocytes # 0.8 Myelocytes # 0.2 Platelet Estimate NORMAL Large Platelets PRESENT Plt Morphology Comment NOTED RBC Morphology NOTED Polychromasia 1+ (0-2) Ovalocytes 1+ (5-14) Sodium 140 Potassium 4.4 Chloride 109 H Carbon Dioxide 24 Anion Gap 11 L BUN 32 H Creatinine 1.66 H Estim Creat Clear Calc 45.2 Estimated GFR 42 POC Glucose 163 H Random Glucose 172 H Calcium 8.7 D Magnesium 1.9 Microbiology Microbiology Results: Microbiology 01/14/24 10:30 Bile Gram Stain - Final 01/14/24 10:30 Bile Routine Culture - Final No growth after 2 days 01/14/24 10:30 Bile Anaerobic Culture - Final NO GROWTH AFTER 5 DAYS 01/13/24 15:56 Blood - Venous Blood Culture - Final Escherichia coli 01/13/24 15:43 Blood - Venous Blood Culture - Final Escherichia coli 01/13/24 Unknown Urine clean catch - Clean Catch Midstream Urine Culture - Final Escherichia coli Procedures Date of Service Date of Service: 01/19/24 Assessment & Plan Assessment and plan (1) ALEC (acute kidney injury): Status: Acute (2) Sepsis: Status: Acute (3) Acute pyelonephritis: Status: Acute Plan ALEC likely tubular injury secondary to hypoperfusion from septic shock creatinine continues to improve continue to encourage hydration UOP is good continue supportive care, continue to monitor electrolytes and renal function daily ok for discharge from renal standpoint, should follow up with outpatient nephrology within 2 weeks of discharge Discussed with Dr Jacob Time Spent With Patient Time: Total time managing care of this patient today ____ minutes. Progress Note: Quality Stroke Does the patient have a stroke diagnosis?: No
--- NOTE | 2024-01-19 10:27 | PM.DS ---
DS: Providers Provider Date of Service: 01/19/24 Date of admission: 01/13/24 22:11 Primary care physician: Unknown Physician Consults: 01/15/24 14:51 Consult to Urology Routine Consulting Provider: [facility] [place] [facility] Reason for consultation: kidney abscess Has provider been notified: No 01/15/24 17:16 Consult to General Surgery Routine Consulting Provider: [facility] [place] [facility] Sur[facility] Reason for consultation: acalculous cholecystitis 01/16/24 11:23 Consult to Nephrology Routine Consulting Provider: [facility] [place] [facility] Reason for consultation: ALEC Has provider been notified: No DS: Diagnosis Discharge Diagnosis (1) ALEC (acute kidney injury): Status: Acute (2) Sepsis: Status: Acute (3) Acute pyelonephritis: Status: Acute DS: Summary Hospital Course Hospital Course: History and physical as per admitting provider. Mr. Lynne is a 63-year-old Creole speaking male with past medical history of type 2 diabetes mellitus on metformin and Jardiance who presented to the ED with fever/chills, generalized body aches, nausea / vomiting, productive cough, and lower abdominal pain / cramping that began approximately 6 days ago. No chest pain or shortness of breath. On arrival to the ER, his BP was 89/55, heart rate 120, respiratory rate 18, O2 sat 98% on room air.? Temp 100.2 F. Laboratory data significant for? WBC 10.5 with a left shift,? hemoglobin 9.7, hematocrit 30.4,? BUN 21, creatinine 2.54, glucose 134, lactic acid 3.7, AST 60, alk-phos 142, albumin 3.1, beta hydroxybutyrate 0.18. UA indicative of UTI, respiratory panel negative. Imaging: Chest x-ray suspicious for atypical? infectious/inflammatory process with early infiltrates in the lower lungs. Abdominal/chest CT showed Questionable pyelonephritis with possible right-sided calyctasis vs small abscess. Trace left-sided pleural effusion. Significant thickening of the gallbladder wall suggestive of acalculous cholecystitis.?ED course:?the patient received a total of 3 L IV fluid per sepsis protocol.? 1 g acetaminophen, vancomycin, Zosyn, azithromycin for empiric coverage.? Despite IV fluid he remained hypotensive and was started on a norepinephrine drip. 63-year-old man treated for septic shock secondary to acalculous cholecystitis, bacteremia and pyelonephritis initially requiring vasopressor support in the ICU. He was seen evaluated by General surgery, had a cholecystostomy tube placed. Tube generally stays in for 6 weeks and he will need to follow up with General surgery in the office in 2 weeks. He was also treated for pyelonephritis with IV ceftriaxone, seen evaluated by Urology with no suggestion of abscess on CT or hydro. He was noted to have E coli bacteremia likely secondary to pyelonephritis and was treated with IV ceftriaxone and will continue a total 14 days with Ceftin at home. His ALEC was likely due to ATN from sepsis, hypotension, treated with IV fluids, seen and evaluated by Nephrology. Creatinine stable and should continue to returned to normal. Avoid nephrotoxins. Diabetes mellitus with hyperglycemia, likely due to steroids, off hydrocortisone at this time. Any metformin and Jardiance at home Normocytic anemia. Stable H&H, did not require any transfusion during hospitalization Transaminitis likely secondary to septic shock, LFTs trended down Hypomagnesemia and hyperkalemia. Resolved Cholecystostomy tube, change dressing every other day, empty bulb when filled Time Attestation Discharge Coordination Time (in mins): 40 Quality: Safe Use of Opioids Does Pt have an Active Cancer Diagnosis on the Problem List?: No Quality: Stroke Does the patient have a stroke diagnosis?: No Physical Exam Vital Signs: Vital Signs: Last Vital Signs Temp 97.4 F 01/19/24 07:33 Pulse 63 01/19/24 07:33 Resp 17 01/19/24 07:33 BP 134/74 01/19/24 07:33 Pulse Ox 97 01/19/24 07:33 O2 Del Method Room Air 01/19/24 07:33 O2 Flow Rate 2 01/15/24 09:00 BMI result Body Mass Index 23.2 Appearing in no acute distress head is normocephalic atraumatic eyes pupils are PERRLA sclera is anicteric mouth throat mucous membranes are intact and moist neck is supple no lymphadenopathy, no JVD noted lung sounds are clear to auscultation heart regular rate rhythm, clear S1, S2 positive bowel sounds, abdomen is soft, nontender neuro patient is alert x3, no focal deficits DS: Data Data Completed and Pending Labs on day of discharge: Laboratory Results - last 24 hr 01/18/24 01/18/24 01/18/24 11:29 16:43 19:44 WBC RBC Hgb Hct MCV MCH MCHC RDW Plt Count MPV Immature Gran % (Auto) Neut % (Auto) Lymph % (Auto) [place] % (Auto) Eos % (Auto) Baso % (Auto) Lymph # (Auto) [place] # (Auto) Eos # (Auto) Baso # (Auto) Abs Immat Gran (auto) Absolute Neuts (auto) Absolute Nucleated RBC Nucleated RBC % (auto) Neutrophils % (Manual) Band Neutrophils % Lymphocytes % (Manual) Monocytes % (Manual) Eosinophils % (Manual) Metamyelocytes % Myelocytes % Abs Neuts (Manual) Lymphocytes # (Manual) Monocytes # (Manual) Eosinophils # (Manual) Metamyelocytes # Myelocytes # Platelet Estimate Large Platelets Plt Morphology Comment RBC Morphology Polychromasia Ovalocytes Sodium Potassium Chloride Carbon Dioxide Anion Gap BUN Creatinine Estim Creat Clear Calc Estimated GFR POC Glucose 175 H 176 H 182 H Random Glucose Calcium Magnesium 01/19/24 01/19/24 05:48 07:42 WBC 18.8 H RBC 4.12 L Hgb 11.1 L Hct 34.3 L MCV 83.3 MCH 26.9 L MCHC 32.4 RDW 14.1 Plt Count 184 MPV 11.9 Immature Gran % (Auto) Cancelled Neut % (Auto) Cancelled Lymph % (Auto) Cancelled [place] % (Auto) Cancelled Eos % (Auto) Cancelled Baso % (Auto) Cancelled Lymph # (Auto) Cancelled [place] # (Auto) Cancelled Eos # (Auto) Cancelled Baso # (Auto) Cancelled Abs Immat Gran (auto) Cancelled Absolute Neuts (auto) Cancelled Absolute Nucleated RBC 0.000 Nucleated RBC % (auto) 0.0 Neutrophils % (Manual) 54 Band Neutrophils % 9 H Lymphocytes % (Manual) 26 Monocytes % (Manual) 4 Eosinophils % (Manual) 2 Metamyelocytes % 4 Myelocytes % 1 Abs Neuts (Manual) 11.8 H Lymphocytes # (Manual) 4.9 Monocytes # (Manual) 0.8 Eosinophils # (Manual) 0.4 Metamyelocytes # 0.8 Myelocytes # 0.2 Platelet Estimate NORMAL Large Platelets PRESENT Plt Morphology Comment NOTED RBC Morphology NOTED Polychromasia 1+ (0-2) Ovalocytes 1+ (5-14) Sodium 140 Potassium 4.4 Chloride 109 H Carbon Dioxide 24 Anion Gap 11 L BUN 32 H Creatinine 1.66 H Estim Creat Clear Calc 45.2 Estimated GFR 42 POC Glucose 163 H Random Glucose 172 H Calcium 8.7 D Magnesium 1.9 Discharge Plan Discharge Anticipated Discharge Date/Time: 01/19/24 10:19 Patient Disposition: Home Health Service Discharge Diagnosis: Septic shock E coli bacteremia Acalculous cholecystitis Pyelonephritis Transaminitis Hypomagnesemia Hyperkalemia Referrals: Monique GOULD [Outside] - 1 Week Efra Mcdonald MD [Physician] - 2 Weeks Discharge Medications: New cefuroxime axetil 250 mg tablet 250 mg PO BID Qty: 20 0RF Continued Jardiance 10 mg tablet 10 mg PO DAILY metformin 500 mg tablet extended release 24 hr 1,000 mg PO BID Discharge Orders: Discharge Order (Routine); Ordered 01/19/24 Ordered By: Alfreda Lilly Diet: Advance to usual diet Activity on Discharge: As tolerated Stand Alone Forms: Patient Portal Discharge page Print Language: Tristanian Creole Activity Restrictions/Additional Instructions: Cholecystostomy tube care: dressing change every other day and empty bulb BID and as needed. Record output and amount. Care Plan Goals: Follow up with general surgeon in his office in 2 weeks Health Concerns: Septic shock E coli bacteremia Acalculous cholecystitis Pyelonephritis Transaminitis Hypomagnesemia Hyperkalemia Plan of Treatment: Follow-up with primary care provider as needed Take all medications as prescribed Assessment: See discharge summary Patient Instructions: [place]-Head Drain Care (DC), [place]-Head Drain Care (GEN) Discharge Date/Time: 01/19/24 14:11
--- NOTE | 2024-01-19 10:31 | MHC.CM.PN ---
Per PIE CRIMPING MACHINE OPERATOR/Alfreda, Patient will be medically cleared for dc to home today with new [facility](SN & PT); [facility] has been notified of today's dc.
--- NOTE | 2024-01-19 10:33 | W.MHC.F2F ---
Service Date Service Date: 01/19/24 Encounter Date of encounter: 01/19/24 Reasons for Services Signs and symptoms assessed: Septic shock E coli bacteremia Acalculous cholecystitis, cholecystostomy tube in place Reason for retirement: CV/CP assess and/or care and other (Cholecystostomy tube) Reason for physical therapy: home safety and mobility Homebound: Leaving the home is medically contraindicated at this time without the asist of a device and/or another person due th the listed conditions above and below. Reason homebound: weakness related to hospital stay Certification: Based on the above findings, I certify that this patient is confined to the home and needs intermittent retirement care, physical therapy and/or speech therapy, or continues to need occupational therapy. The patient is under my care, and I have initiated the establishment of the plan of care. The patient will be followed by a physician who will periodically review the plan of care. Time Spent With Patient Time: Total time managing care of this patient today ____ minutes.
--- NOTE | 2024-01-19 11:02 | MHC.CM.PN ---
Patient has been medically cleared for dc to home today with new [facility]; [facility] has been made aware of today's dc. CM spoke with Patient's Daughter/Ryan @ [phone] who approved (as did PT & RN IMCU) Patient returning home today at 2 PM, via Lyft.
[2024-01-19] MEDS: cefTRIAXone sodium 2 GM VIAL IVPUSH (11:48)
[2024-01-19 11:55] LABS: Glucose, Whole Blood 168 mg/dL (60-115)
[2024-01-19 12:00] VITALS: BP 152/80; PULSE 66; RESP 20; TEMP 36.6; O2SAT 99
--- NOTE | 2024-01-19 13:31 | PM.PNGS ---
Subjective Subjective Date of Service: 01/19/24 Interval history: Feels well. Denies any abd pain. Tolerating diet. Physical Exam Vital Signs: Vital Signs: Last Vital Signs Temp 97.8 F 01/19/24 12:00 Pulse 66 01/19/24 12:00 Resp 20 01/19/24 12:00 BP 152/80 H 01/19/24 12:00 Pulse Ox 99 01/19/24 12:00 O2 Del Method Room Air 01/19/24 12:00 O2 Flow Rate 2 01/15/24 09:00 BMI result Body Mass Index 23.2 Const: General: comfortable, no acute distress and alert Eyes: Sclerae: sclerae normal Resp: Effort & Inspection: normal respiratory effort GI: Other: cholecystostomy tube in place RUQ, bilious output in bulb very mild tenderness surrounding drain Inspection: No distended Palpation (GI): Soft to palpation and no guarding Percussion: Yes normal to percussion Skin: General skin exam: no rashes or lesions noted Objective Data Active Medications Acetaminophen (Acetaminophen 325 Mg Tablet) 650 mg PO Q6H PRN PRN Reason: Pain, Mild (Pain Scale 1-3) Last Admin: 01/18/24 19:43 Dose: 650 mg Documented By: BOY Ceftriaxone Sodium (Ceftriaxone Sodium 2 Gm Vial) 2 gm IVPUSH Q24H [facility] Last Admin: 01/19/24 11:48 Dose: 2 gm Documented By: KENNETH Heparin Sodium (Porcine) (Heparin Sodium,Porcine 5,000 Unit/Ml Vial) 5,000 unit SUBCUT Q12H [facility] Last Admin: 01/19/24 11:49 Dose: 5,000 unit Documented By: KENNETH Lactated Ringer's (Lr) 1,000 mls @ 100 mls/hr IVCONT .Q10H [facility] Last Admin: 01/19/24 05:33 Dose: 100 mls/hr Documented By: GIOVANNY Insulin Human Lispro (Insulin Lispro 100 Unit/Ml 3 Ml Vial) 0 unit SUBCUT QIDACHS [facility]; Protocol Last Admin: 01/19/24 11:52 Dose: 2 unit Documented By: KENNETH Ondansetron HCl (Ondansetron Odt 4 Mg Tab.Rapdis) 4 mg TRANSLINGU Q6H PRN PRN Reason: Nausea and Vomiting Last Admin: 01/14/24 14:31 Dose: 4 mg Documented By: GRIS Oxycodone HCl (Oxycodone Hcl Immed Release 5 Mg Tablet) 5 mg PO Q6H PRN PRN Reason: Pain, Severe (Pain Scale 7-10) Last Admin: 01/19/24 05:33 Dose: 5 mg Documented By: GIOVANNY Sodium Chloride (0.9 % Sodium Chloride Flush 3 Ml Syringe) [facility] Last Admin: 01/19/24 08:13 Dose: Not Given Documented By: KENNETH Non-Admin Reason: IV Running Labs 01/19/24 05:48 01/19/24 05:48 Labs: Laboratory Results - last 24 hr 01/18/24 01/18/24 01/19/24 16:43 19:44 05:48 MCV 83.3 MCH 26.9 L MCHC 32.4 RDW 14.1 Plt Count 184 MPV 11.9 Immature Gran % (Auto) Cancelled Neut % (Auto) Cancelled Lymph % (Auto) Cancelled [place] % (Auto) Cancelled Eos % (Auto) Cancelled Baso % (Auto) Cancelled Lymph # (Auto) Cancelled [place] # (Auto) Cancelled Eos # (Auto) Cancelled Baso # (Auto) Cancelled Abs Immat Gran (auto) Cancelled Absolute Neuts (auto) Cancelled Absolute Nucleated RBC 0.000 Nucleated RBC % (auto) 0.0 Neutrophils % (Manual) 54 Band Neutrophils % 9 H Lymphocytes % (Manual) 26 Monocytes % (Manual) 4 Eosinophils % (Manual) 2 Metamyelocytes % 4 Myelocytes % 1 Abs Neuts (Manual) 11.8 H Lymphocytes # (Manual) 4.9 Monocytes # (Manual) 0.8 Eosinophils # (Manual) 0.4 Metamyelocytes # 0.8 Myelocytes # 0.2 Platelet Estimate NORMAL Large Platelets PRESENT Plt Morphology Comment NOTED RBC Morphology NOTED Polychromasia 1+ (0-2) Ovalocytes 1+ (5-14) Anion Gap 11 L Estim Creat Clear Calc 45.2 Estimated GFR 42 POC Glucose 176 H 182 H Random Glucose 172 H Calcium 8.7 D Magnesium 1.9 01/19/24 01/19/24 07:42 11:50 MCV MCH MCHC RDW Plt Count MPV Immature Gran % (Auto) Neut % (Auto) Lymph % (Auto) [place] % (Auto) Eos % (Auto) Baso % (Auto) Lymph # (Auto) [place] # (Auto) Eos # (Auto) Baso # (Auto) Abs Immat Gran (auto) Absolute Neuts (auto) Absolute Nucleated RBC Nucleated RBC % (auto) Neutrophils % (Manual) Band Neutrophils % Lymphocytes % (Manual) Monocytes % (Manual) Eosinophils % (Manual) Metamyelocytes % Myelocytes % Abs Neuts (Manual) Lymphocytes # (Manual) Monocytes # (Manual) Eosinophils # (Manual) Metamyelocytes # Myelocytes # Platelet Estimate Large Platelets Plt Morphology Comment RBC Morphology Polychromasia Ovalocytes Anion Gap Estim Creat Clear Calc Estimated GFR POC Glucose 163 H 168 H Random Glucose Calcium Magnesium Microbiology Microbiology Results: Microbiology 01/14/24 10:30 Gram Stain - Final Bile Routine Culture - Final No growth after 2 days Anaerobic Culture - Final NO GROWTH AFTER 5 DAYS Procedures Date of Service Date of Service: 01/19/24 Progress Note: A&P Assessment and plan (1) Acute acalculous cholecystitis: Status: Acute Plan Clinically improved. Tolerating diet, abd very benign. Bulb with bilious output. Can be discharged to home from surgical standpoint with cholecystostomy tube in place with VNA services. F/u in office in 1-2 weeks. Time Spent With Patient Time: Total time managing care of this patient today ____ minutes. Quality Stroke Does the patient have a stroke diagnosis?: No VTE Prior VTE?: No VTE Risk Level:: Medical - moderate - high VTE Device Contraindication: N/A - Device Ordered VTE Drug Contraindication: Treatment Not Tolerated
== END 2024-01-19 14:11 | disposition home health service (06) | DRG 720 ==
LOC: HO.ED 21:28 → HO.EDOVER 22:17 → HO.ICU 23:10 → HO.IMC 01-15 09:56
PROVIDERS: Internal Medicine Critical Care Medicine; Physician Assistant Medical; Physician Assistant Surgical; Admitting Provider Nurse Practitioner Family; Emergency Provider Emergency Medicine; Visit Provider Nurse Practitioner Acute Care
DX: A41.9 Sepsis, unspecified organism (principal); N17.0 Acute kidney failure with tubular necrosis; R65.21 Severe sepsis with septic shock; K81.0 Acute cholecystitis; N10 Acute pyelonephritis; D64.9 Anemia, unspecified; E11.65 Type 2 diabetes mellitus with hyperglycemia; B96.20 Unspecified Escherichia coli [E. coli] as the cause of diseases classified elsewhere; E83.42 Hypomagnesemia; E87.5 Hyperkalemia; Z20.822 Contact with and (suspected) exposure to COVID-19; Z79.84 Long term (current) use of oral hypoglycemic drugs
CPT/HCPCS: 0241U; 36415; 49405; 71045; 71046; 71260; 74176; 74177; 80048; 80053; 80076; 80202; 81001; 82010; 82040; 82803; 82947; 83605; 83690; 83735; 84100; 84443; 84484; 85007; 85025; 85027; 85610; 86850; 86900; 86901; 86923; 87040; 87070; 87073; 87077; 87086; 87088; 87186; 87205; 93005; 97161; 99285; C1729; C1758; J0131; J0456; J0696; J1644; J1720; J1940; J2003; J2185; J2270; J2543; J3370; J3371; J3475; J7120; P9016; P9047; Q9967

== ENCOUNTER → 2024-01-13 20:29 | Outpatient (BNV) | payer OTHER, SELFPAY | PROVIDERS: Admitting Provider Nurse Practitioner Family; Emergency Provider Emergency Medicine; Visit Provider Internal Medicine | DX: R00.0 Tachycardia, unspecified (principal) | CPT/HCPCS: 93010 ==

== ENCOUNTER 2024-01-13 22:11 | Outpatient (BNV) | payer OTHER, SELFPAY | END 2024-01-14 10:10 | PROVIDERS: Admitting Provider Nurse Practitioner Family; Emergency Provider Emergency Medicine; Visit Provider Physician Assistant Surgical | DX: K80.00 Calculus of gallbladder with acute cholecystitis without obstruction (principal) | CPT/HCPCS: 47490 ==

== ENCOUNTER → 2024-01-13 22:11 | Outpatient (BNV) | payer OTHER, SELFPAY | PROVIDERS: Admitting Provider Nurse Practitioner Family; Emergency Provider Emergency Medicine; Visit Provider Nurse Practitioner Family | DX: A41.9 Sepsis, unspecified organism (principal); R65.21 Severe sepsis with septic shock; K81.0 Acute cholecystitis | CPT/HCPCS: 36556; 99223; 99291 ==

== ENCOUNTER → 2024-01-13 22:11 | Outpatient (BNV) | payer OTHER, SELFPAY | PROVIDERS: Admitting Provider Nurse Practitioner Family; Emergency Provider Emergency Medicine; Visit Provider Nurse Practitioner Family | DX: N17.9 Acute kidney failure, unspecified (principal); A41.9 Sepsis, unspecified organism; R65.21 Severe sepsis with septic shock; N10 Acute pyelonephritis | CPT/HCPCS: 99222; 99232 ==

== ENCOUNTER → 2024-01-13 22:11 | Outpatient (BNV) | payer OTHER, SELFPAY | PROVIDERS: Admitting Provider Nurse Practitioner Family; Emergency Provider Emergency Medicine; Visit Provider Physician Assistant Medical | DX: A41.9 Sepsis, unspecified organism (principal); R65.21 Severe sepsis with septic shock; N10 Acute pyelonephritis; K81.0 Acute cholecystitis | CPT/HCPCS: 99232; 99239; 99499; G0180 ==

== ENCOUNTER → 2024-01-13 22:11 | Outpatient (BNV) | payer OTHER, SELFPAY | PROVIDERS: Admitting Provider Nurse Practitioner Family; Emergency Provider Emergency Medicine; Visit Provider Urology | DX: N17.9 Acute kidney failure, unspecified (principal); A41.9 Sepsis, unspecified organism; R65.21 Severe sepsis with septic shock; N10 Acute pyelonephritis; K81.0 Acute cholecystitis | CPT/HCPCS: 99222 ==

== ENCOUNTER → 2024-01-13 22:11 | Outpatient (BNV) | payer OTHER, SELFPAY | PROVIDERS: Admitting Provider Nurse Practitioner Family; Emergency Provider Emergency Medicine; Visit Provider Physician Assistant Surgical | DX: K81.0 Acute cholecystitis (principal) | CPT/HCPCS: 99222; 99232 ==

== ENCOUNTER 2024-02-10 10:51 | Outpatient (AMB) | payer MEDICAID, SELFPAY ==
--- NOTE | 2024-02-09 10:33 | HO.NEPHOV_ITS ---
Intake Visit Reasons: Discharge FU from 01/13/24 Allergies No Known Allergies Allergy (Verified 01/13/24 15:07) HPI Comments Details: 63 y/o male whose primary language is Japanese Creole with a medical history of diabetes mellitus. denies other known medical history outside of diabetes (on metformin, jardiance outpatient) He was hospitalized on 01/12 for septic shock (source thought to be secondary to acalculous cholecysits vs pyelonephritis). He required ICU care and vasopressor support, now s/p cholecystostomy tube placement. smoking: alcohol: family hx: patient denies known personal or family history of kidney disease. medications: metformin 1000mg BID, jardiance 10mg daily Providers: PCP: Specialists: Imaging: CT abdomen/pelvis on 01/12 showed questionable pyelonephritis with possible right-sided atelectasis versus small abscess repeat abd CT from 01/15 showed striated parenchymal pattern probably related to prior IV contrast and ATN; superimposed pyelonephritis cannot be confirmed or excluded. Question mild fullness of right renal collecting system, unchanged compared to 3 days prior. Left renal collecting system appears unremarkable. No hydrouereter or calculi seen. kidneys appeared unremarkable in size and shape. baseline creatinine 1.10 on 07/31/2301/12 Creatinine 2.54, last creatinine 01/18 before discharge from hospital was 1.66 electrolytes unremarkable urine on 01/12 showed some mild proteinuria, moderate blood, +nitrites and leukocyte esterace Urine: diet, salt: sugars: NSIADs/OTC medications: shortness of breath: Edema: urinary sx: rash: joint pain: PFSH Social History Household Members: Family Housing: House Do you presently have visiting nurse or other home services: No Patient Tobacco Use Status: Never used Tobacco service: No Results Reviewed Nephrology Results: Hgb 11.1 g/dl (14.0-18.0) L 01/19/24 WBC 18.8 X10*3/uL (4.8-10.8) H 01/19/24 Plt Count 184 X10*3/uL (160-400) 01/19/24 Sodium 140 mmol/L (135-145) 01/19/24 Potassium 4.4 mmol/L (3.3-5.1) 01/19/24 Chloride 109 mmol/L (96-108) H 01/19/24 Carbon Dioxide 24 mmol/L (22-29) 01/19/24 BUN 32 mg/dL (9-16) H 01/19/24 Creatinine 1.66 mg/dL (0.5-1.4) H 01/19/24 Calcium 8.7 mg/dL (8.4-10.2) 01/19/24 Phosphorus 4.7 mg/dL (2.7-4.5) H 01/15/24 Urine Protein 30 (1+) mg/dL (Neg-Trace) H 01/13/24 Coding
--- NOTE | 2024-02-10 09:47 | HO.NEPHOV_ITS ---
Vital Signs 02/10/24 11:07 Weight 135 lb BP 112/78 Blood Pressure Location Lt brachial Position Sitting Pulse Source Pulse Oximeter Oxygen Delivery Method Room Air Intake Visit Reasons: Discharge FU from 01/13/24 Rough Planer Tender Required: Yes Rough Planer Tender Name: [id number] hollis Accompanied by: Self / Same As Patient Allergies No Known Allergies Allergy (Verified 02/10/24 11:11) HPI Comments Details: 63 y/o male (primary language is Indian Creole- telehealth rn concurrent review present) with a medical history of diabetes mellitus, denies other known medical history. He was recently hospitalized on 01/12 for septic shock (source thought to be secondary to acalculous cholecysits). He required ICU care and vasopressor support, s/p cholecystostomy tube placement; had ALEC likely tubular injury secondary to hypoperfusion from septic shock. he is here today for hospital follow up. smoking: former, 1-3 cigarettes in a day, used to be much heavier per pt alcohol: none family hx: patient denies known personal or family history of kidney disease denies other known medical history outside of diabetes (was on metformin, jardiance outpatient) medications: metformin 1000mg BID, jardiance 10mg daily Providers: PCP: has a PCP but no pending appts. Not sure about name/site, states he speaks Indian Creole but has not seen him since he was hospitalized. Specialists: reports sees equipment specialist, was referred by PCP; he is unsure of name/site. Imagin/18 CT abd/pelvis: CT abdomen/pelvis on 01/12 showed questionable pyelonephritis with possible right-sided atelectasis versus small abscess repeat abd CT from 01/15 showed striated parenchymal pattern probably related to prior IV contrast and ATN; superimposed pyelonephritis cannot be confirmed or excluded. Question mild fullness of right renal collecting system, unchanged compared to 3 days prior. Left renal collecting system appears unremarkable. No hydrouereter or calculi seen. Creatinine trend: baseline creatinine 1.10 on 07/31/23, GFR >60 01/12 Creatinine 2.54, 1.66 on 01/15 discharge Urine: 01/12 urine dip with mild protein, moderate blood (no RBCs on microscopy), +nitrites, +leukocyte esterase diet, salt: working on this sugars: trying to work on this NSIADs/OTC medications: None no shortness of breath no edema no urinary symptoms no rash no joint pain, with exception of bilateral knees, chronic/intermittent reports poor appetite for some time now, reports since before he was in the hospital [facility] Medical History (Updated 02/10/24 @ 11:17 by Joan Saenz, DNP, DIRECTOR [employer]-BC) ALEC (acute kidney injury) Social History Household Members: Family Housing: House Do you presently have visiting nurse or other home services: No Patient Tobacco Use Status: Never used Tobacco service: No Review of Systems Const Reports no additional complaints, Denies headache(s), Denies lethargy, Denies malaise, Reports poor appetite (reports ongoing for months now) and Denies weight loss ENT Denies dizziness and Denies headache(s) Card Denies chest pain, Denies pedal edema, Denies leg edema, Denies lightheadedness, Denies dyspnea and Denies dyspnea on exertion Resp Denies cough, Denies dyspnea and Denies dyspnea on exertion GI Denies abdominal pain, Denies diarrhea, Denies nausea and Denies vomiting Denies hematuria, Denies oliguria, Denies dysuria, Denies flank pain and Denies urinary incontinence Musc Reports arthralgias (chronic b/l knee pain, intermittent) and Denies joint swelling Skin/Breast Denies rash Neuro Denies dizziness and Denies headache(s) Physical Exam Const General: healthy appearing, no acute distress, alert and awake Neck Neck: Yes no JVD Thyroid: Thyroid normal Resp Effort & Inspection: normal respiratory effort and able to speak in complete sentences Auscultation: clear to auscultation bilaterally Cardio Jugular venous distension: no JVD Rate: regular rate Rhythm: regular rhythm Heart sounds: S1 normal heart sound present, S2 normal heart sound present and no murmurs GI Other: right abdominal drain in place. Palpation (GI): Soft to palpation and nontender General: Yes no CVA tenderness Back/Spine/Pelvis Back: no CVA tenderness Skin Lesions: no lesions Rashes: no rashes Extrem General: No edema and No pedal edema Results Reviewed Nephrology Results: Hgb 11.1 g/dl (14.0-18.0) L 01/19/24 WBC 18.8 X10*3/uL (4.8-10.8) H 01/19/24 Plt Count 184 X10*3/uL (160-400) 01/19/24 Sodium 140 mmol/L (135-145) 01/19/24 Potassium 4.4 mmol/L (3.3-5.1) 01/19/24 Chloride 109 mmol/L (96-108) H 01/19/24 Carbon Dioxide 24 mmol/L (22-29) 01/19/24 BUN 32 mg/dL (9-16) H 01/19/24 Creatinine 1.66 mg/dL (0.5-1.4) H 01/19/24 Calcium 8.7 mg/dL (8.4-10.2) 01/19/24 Phosphorus 4.7 mg/dL (2.7-4.5) H 01/15/24 Urine Protein 30 (1+) mg/dL (Neg-Trace) H 01/13/24 Assessment & Plan Assessment & Plan (1) ALEC (acute kidney injury): Code(s): N17.9 - Acute kidney failure, unspecified Category: Medical Plan ALEC secondary to tubular injury from hypoperfusion secondary to septic shock in December patient will need updated blood and urine studies to assess current renal function, orders placed, pt to go to lab today his blood pressure is well controlled I advised healthy diet for diabetic control, may continue current medication regimen for now advised low salt diet advised regular exercise advised needs to follow up with PCP to discuss long-standing poor appetite, as well as continue to follow for general care. He states he will call to schedule a follow up. advised needs to ensure follow up with general surgery for management of drain- pt states he has VNA coming regularly, he will discuss his general surgery follow up appointment with them tomorrow when they come to his home. he will return in 1 month, and get labs done today. Orders: Orders Total Protein Urine Random Today N17.9 - Acute kidney failure, unspecified UA w Microscopic Today N17.9 - Acute kidney failure, unspecified Basic Metabolic Panel Today N17.9 - Acute kidney failure, unspecified, N18.30 - Chronic kidney disease, stage 3 unspecified Creatinine Urine Today N17.9 - Acute kidney failure, unspecified Coding Level of Care Code New Pt Level 4 (02716) Diagnoses ALEC (acute kidney injury) N17.9 Time Spent (min) 45 Comment time spent assessing, counseling, documentation, chart review: 45 minutes.
[2024-02-10 11:07] VITALS: BP 112/78
== END 2024-02-10 11:45 | disposition home or self-care (01) ==
PROVIDERS: Visit Provider Nurse Practitioner Family
DX: N17.0 Acute kidney failure with tubular necrosis (principal)
CPT/HCPCS: 99214

== ENCOUNTER → 2024-02-10 10:51 | Outpatient (BNVA) | payer MEDICAID, SELFPAY | PROVIDERS: Visit Provider Nurse Practitioner Family | DX: N17.9 Acute kidney failure, unspecified (principal); N18.30 Chronic kidney disease, stage 3 unspecified | CPT/HCPCS: 99212 ==

== ENCOUNTER 2024-02-10 11:53 | Outpatient (REF) | payer MEDICAID, SELFPAY ==
[2024-02-10 13:36] LABS: Appearance Urine Clear; Color Urine Yellow; Glucose Urine UA Negative (Negative); Leukocyte Esterase Urine Large (3+) (Negative); Nitrite Urine Negative (Negative); PH 5.5 (5.0-9.0); UMIC TRIGGER UA YES; Urine Blood Trace (Negative); Urine Ketones Negative (Negative); Urine Protein Trace mg/dL (Neg-Trace)
[2024-02-10 13:43] LABS: Bacteria Urine Trace (None Seen); Hyaline Casts Urine 0-2 /LPF (0-2); RBC Urine 0-2 /HPF (0-2); Squamous Epithelial Cell Urine 0-2 /HPF (0-2); WBC Urine >50 /HPF (0-5)
[2024-02-10 14:28] LABS: Anion Gap 11 (12-20); Blood Urea Nitrogen 10 mg/dL (9-16); Calcium 10.2 mg/dL (8.4-10.2); Carbon Dioxide 27 mmol/L (22-29); Chloride 104 mmol/L (96-108); Estimated Glomerular Filt Rate > 60; Glucose Random 79 mg/dL (60-115); Potassium 4.3 mmol/L (3.3-5.1); Sodium 138 mmol/L (135-145)
[2024-02-10 14:58] LABS: Creatinine Urine 50.62 mg/dL; Total Protein Urine Random 22 mg/dL (<12)
== END 2024-02-10 11:54 | disposition home or self-care (01) ==
LOC: HO.10HDL 11:53
PROVIDERS: Visit Provider Nurse Practitioner Family
DX: N17.9 Acute kidney failure, unspecified (principal); N18.30 Chronic kidney disease, stage 3 unspecified
CPT/HCPCS: 36415; 80048; 81001; 82570; 84156

== ENCOUNTER 2024-03-11 11:15 | Outpatient (AMB) | payer OTHER, SELFPAY ==
[2024-03-11 11:26] VITALS: BP 112/82; PULSE 84; O2SAT 98
--- NOTE | 2024-03-11 12:15 | HO.NEPHOV ---
Vital Signs 03/11/24 11:26 Weight 138 lb BP 112/82 Blood Pressure Location Rt brachial Position Sitting Pulse 84 Pulse Source Pulse Oximeter Pulse Oximetry (%) 98 Oxygen Delivery Method Room Air Intake Visit Reasons: 1 MO FU/ Conf Almond Cutting Machine Tender Required: Yes Accompanied by: Yehuda Health Worker Allergies No Known Allergies Allergy (Verified 03/11/24 11:30) Medication List - Last Reconciled 03/11/24 by Joan Saenz, DNP, [employer]ER-BC cefuroxime axetil 250 mg PO BID empagliflozin (Jardiance) 10 mg PO DAILY lisinopril 5 mg PO DAILY metformin ER 1,000 mg PO BID HPI Comments Details: 63 y/o male (primary language is Montenegrin Creole- 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 He was recently hospitalized on 01/12 for septic shock (source thought to be secondary to acalculous cholecysits). He required ICU care and vasopressor support, s/p cholecystostomy tube placement; had ALEC likely tubular injury secondary to hypoperfusion from septic shock. Seen for hospital follow up on 02/10/24, here for 1 month return. smokin-3 cigarettes in a day, used to be much heavier per pt. working on cutting down. alcohol: none family hx: patient denies known personal or family history of kidney disease denies other known medical history outside of diabetes (was on metformin, jardiance outpatient) medications: metformin 1000mg BID, jardiance 10mg daily. Providers: PCP: recently saw PCP at [facility], Dr Autumn Ayala. Specialists: reports sees patient services specialist, was referred by PCP; he is unsure of name/site. Imagin/18 CT abd/pelvis: CT abdomen/pelvis on 01/12 showed questionable pyelonephritis with possible right-sided atelectasis versus small abscess repeat abd CT from 01/15 showed striated parenchymal pattern probably related to prior IV contrast and ATN; superimposed pyelonephritis cannot be confirmed or excluded. Question mild fullness of right renal collecting system, unchanged compared to 3 days prior. Left renal collecting system appears unremarkable. No hydrouereter or calculi seen. Creatinine trend: baseline creatinine 1.10 on 07/31/23, GFR >60 01/12 Creatinine 2.54, 1.66 on 01/15 discharge 02/10/24 creatinine 1.16, GFR>60 Urine: 02/10/24 no blood, trace protein, WBCs. urine protein/creatinine ratio 02/09/14 0.43 diet, salt: working on this sugars: trying to work on this NSIADs/OTC medications: None no shortness of breath no edema no urinary symptoms no rash no joint pain, with exception of bilateral knees, chronic/intermittent had reported poor appetite last visit, states this has resolved and he is feeling well. [facility] Medical History (Updated 03/11/24 @ 12:57 by Joan Saenz, DNP, [employer]ER-BC) FH: cholecystectomy (~12/2023) ALEC (acute kidney injury) Social History Household Members: Family Housing: House Do you presently have visiting nurse or other home services: No Patient Tobacco Use Status: Never used Tobacco service: No Review of Systems Const Reports no additional complaints, Denies headache(s), Denies lethargy, Denies malaise, Denies poor appetite (reports ongoing for months now) and Denies weight loss ENT Denies dizziness and Denies headache(s) Card Denies chest pain, Denies pedal edema, Denies leg edema, Denies lightheadedness, Denies dyspnea and Denies dyspnea on exertion Resp Denies cough, Denies dyspnea and Denies dyspnea on exertion GI Denies abdominal pain, Denies diarrhea, Denies nausea and Denies vomiting Denies hematuria, Denies oliguria, Denies dysuria, Denies flank pain and Denies urinary incontinence Musc Reports arthralgias (chronic b/l knee pain, intermittent) and Denies joint swelling Skin/Breast Denies rash Neuro Denies dizziness and Denies headache(s) Physical Exam Const General: healthy appearing, no acute distress, alert and awake Neck Neck: Yes no JVD Thyroid: Thyroid normal Resp Effort & Inspection: normal respiratory effort and able to speak in complete sentences Auscultation: clear to auscultation bilaterally Cardio Jugular venous distension: no JVD Rate: regular rate Rhythm: regular rhythm Heart sounds: S1 normal heart sound present, S2 normal heart sound present and no murmurs GI Other: right abdominal drain in place. Palpation (GI): Soft to palpation and nontender General: Yes no CVA tenderness Back/Spine/Pelvis Back: no CVA tenderness Skin Lesions: no lesions Rashes: no rashes Extrem General: No edema and No pedal edema Results Reviewed Nephrology Results: Hgb 11.1 g/dl (14.0-18.0) L 01/19/24 WBC 18.8 X10*3/uL (4.8-10.8) H 01/19/24 Plt Count 184 X10*3/uL (160-400) 01/19/24 Sodium 138 mmol/L (135-145) 02/10/24 Potassium 4.3 mmol/L (3.3-5.1) 02/10/24 Chloride 104 mmol/L (96-108) 02/10/24 Carbon Dioxide 27 mmol/L (22-29) 02/10/24 BUN 10 mg/dL (9-16) 02/10/24 Creatinine 1.16 mg/dL (0.5-1.4) 02/10/24 Calcium 10.2 mg/dL (8.4-10.2) 02/10/24 Phosphorus 4.7 mg/dL (2.7-4.5) H 01/15/24 Urine Protein Trace mg/dL (Neg-Trace) 02/10/24 Urine Creatinine 50.62 mg/dL 02/10/24 Assessment & Plan Assessment & Plan (1) ALEC (acute kidney injury): Code(s): N17.9 - Acute kidney failure, unspecified Category: Medical (2) Proteinuria: Code(s): R80.9 - Proteinuria, unspecified Category: Medical Qualifiers: Proteinuria type: persistent Qualified Code(s): R80.1 - Persistent proteinuria, unspecified Plan ALEC secondary to tubular injury from hypoperfusion secondary to septic shock in December ALEC resolved Persistent proteinuria- urine protein/creatinine ratio 0.43 most likely secondary to diabetic nephropathy will start low dose JOSIAH inhibitor (as blood pressure is well-controlled at this time). Advised take 5mg lisinopril daily at bedtime. his blood pressure is well controlled I advised healthy diet for diabetic control, may continue current medication regimen for now advised low salt diet advised regular exercise he will continue to follow his PCP and endocrinology, states he has a follow up booked this month with general surgery; he reports VNA continues to check on his drain. he will return in 3 months and get lab work prior to appointment. Discussed with Dr Jacob Orders: Orders Basic Metabolic Panel 3 Months N18.30 - Chronic kidney disease, stage 3 unspecified Protein Creatinine Ratio, Ur 3 Months R80.9 - Proteinuria, unspecified Medications: New lisinopril 5 mg PO DAILY 90 tabs 1RF R80.9 - Proteinuria, unspecified lisinopril take daily at bedtime 5 mg PO DAILY 90 tabs 1RF R80.9 - Proteinuria, unspecified Coding Level of Care Code Est Pt Level 4 (56694) Diagnoses ALEC (acute kidney injury) N17.9 Persistent proteinuria R80.1 Proteinuria type: persistent Time Spent (min) 30 Comment time spent assessing, counseling, documentation, chart review: 30 minutes.
== END 2024-03-11 11:50 | disposition home or self-care (01) ==
PROVIDERS: Visit Provider Nurse Practitioner Family
DX: N17.9 Acute kidney failure, unspecified (principal); R80.1 Persistent proteinuria, unspecified
CPT/HCPCS: 99214

== ENCOUNTER → 2024-03-11 11:15 | Outpatient (BNVA) | payer OTHER, SELFPAY | PROVIDERS: Visit Provider Nurse Practitioner Family | DX: N17.9 Acute kidney failure, unspecified (principal); R80.1 Persistent proteinuria, unspecified | CPT/HCPCS: 99212 ==

== ENCOUNTER 2024-03-22 13:53 | Outpatient (AMB) | payer OTHER, SELFPAY ==
--- NOTE | 2024-03-22 14:00 | A.OFFVIS_ITS ---
Vital Signs 03/22/24 14:15 Height 5 ft 7 in Weight 135 lb BMI 21.1 BP 101/71 Blood Pressure Location Lt brachial Position Sitting Pulse 97 Intake Visit Reasons: Cholecystostomy drain in place, hospital follow-up Intake Note: Patient here for follow up cholecystostomy tube in place RUQ, bilious output in bulb. Patient denies any issues for today. Accounting Intern Required: Yes Accounting Intern Name: Jones [id number] Accompanied by: Self / Same As Patient Allergies No Known Allergies Allergy (Verified 03/22/24 13:59) HPI Comments Details: Patient presents here with a friend who served as an director weights and measures as well as using the [employer] director weights and measures. Patient was recently hospitalized and had IR drainage of acute cholecystitis. The reasons for this and not surgical intervention were unclear to me but nonetheless he presents here with a drain in his gallbladder and a biliary drainage bag draining bile. His abdominal symptoms have resolved. He would like to either have the drain removed there was gallbladder removed. Patient's chart was reviewed and patient evaluated. His past medical history according to him is only noteworthy for diabetes. [facility] Medical History (Updated 03/11/24 @ 12:57 by Joan Saenz, DNP, FIRER RETORT-BC) FH: cholecystectomy (~12/2023) ALEC (acute kidney injury) Social History Household Members: Family Housing: House Do you presently have visiting nurse or other home services: No Patient Tobacco Use Status: Never used Tobacco service: No Physical Exam Vital Signs: Last Vital Signs Pulse 97 03/22/24 14:15 BP 101/71 03/22/24 14:15 BMI result Body Mass Index 21.1 Eyes Other: Anicteric Chest Other: Chest breath sounds bilaterally, HS 1 in 2 GI Other: Abdomen is soft, benign. IR drain in place with bilious output Assessment & Plan Assessment & Plan (1) History of acute cholecystitis: Code(s): Z87.19 - Personal history of other diseases of the digestive system Category: Surgical Plan I discussed with the patient through the director weights and measures the risks, benefits and alternatives laparoscopic possible open cholecystectomy which include but not limited to bleeding, infection, numbness, pain, scarring, conversion to open procedure, bowel or bile duct injury or leak and the patient wishes to proceed. All questions answered. Arrangements we will be made for this. Coding Level of Care Code Est Pt Level 5 (72881) Diagnoses History of acute cholecystitis Z87.19
[2024-03-22 14:15] VITALS: BP 101/71; PULSE 97; BMI 21.1
== END 2024-03-22 15:55 | disposition home or self-care (01) ==
PROVIDERS: PCP Student in an Organized Health Care Education/Training Program; Visit Provider Surgery
DX: K81.0 Acute cholecystitis (principal)
CPT/HCPCS: 99214

== ENCOUNTER → 2024-03-22 13:53 | Outpatient (BNVA) | payer OTHER, SELFPAY | PROVIDERS: PCP Student in an Organized Health Care Education/Training Program; Visit Provider Surgery | DX: Z87.19 Personal history of other diseases of the digestive system (principal) | CPT/HCPCS: 99212 ==

== ENCOUNTER → 2024-04-08 07:56 | Outpatient (BNV) | payer OTHER, SELFPAY | PROVIDERS: Emergency Provider Emergency Medicine; Visit Provider Internal Medicine | DX: R09.1 Pleurisy (principal) | CPT/HCPCS: 93010 ==

== ENCOUNTER 2024-04-16 08:35 | Day surgery (SDC) | payer OTHER, SELFPAY ==
[2024-04-06 12:15] VITALS: BMI 21.9
[2024-04-06 12:25] VITALS: BP 112/73; PULSE 88; RESP 20; O2SAT 100
[2024-04-06 13:52] LABS: Hematocrit 36.1 % (42.0-52.0); Hemoglobin 11.6 g/dl (14.0-18.0); Mean Corpuscular HGB Conc 32.1 g/dl (31.0-36.0); Mean Corpuscular Hemoglobin 27.7 pg (27.0-33.0); Mean Corpuscular Volume 86.2 fL (80.0-98.0); Mean Platelet Volume 9.9 fL (9.4-12.4); Platelet Count 214 X10*3/uL (160-400); Red Blood Count 4.19 X10*6/uL (4.60-5.80); Red Cell Distribution Width 14.6 % (11.0-16.0)
[2024-04-06 14:15] LABS: Anion Gap 11 (12-20); Blood Urea Nitrogen 16 mg/dL (9-16); Calcium 9.4 mg/dL (8.4-10.2); Carbon Dioxide 26 mmol/L (22-29); Chloride 105 mmol/L (96-108); Creatinine Clr Calc Pharmacy 53.1; Estimated Glomerular Filt Rate 56; Glucose Random 134 mg/dL (60-115); Potassium 4.3 mmol/L (3.3-5.1); Sodium 138 mmol/L (135-145)
[2024-04-06 14:42] LABS: Creatinine Urine 82.42 mg/dL; Protein/Creatinine Ratio, Ur 0.13 (<0.2); Total Protein Urine Random 11 mg/dL (<12)
--- NOTE | 2024-04-15 12:49 | P.HPSUR_ITS ---
Pre-Procedural Eval Section A - 24 Hr Update-Section A only Date of Service: 04/16/24 The patient is an INPATIENT: No Changes since office visit: No Cold of Flu in the past 2 weeks, No New Medical Problems, No Changes in Medication and No Patient answered all questions Section B - Complete if H&P > 30 days Chief Complaint: Personal hx of other diseases of the digestive Allergies: Allergies Allergy/AdvReac Type Severity Reaction Status Date / Time No Known Allergies Allergy Verified 04/08/24 03:50 Review of Systems Sugical H&P ROS: Negative: Constitution, Cardiovascular, Respiratory, Neurological, Psychiatric, Hem-Onc, Allergic/Immunologic, Gastrointestinal, Genitourinary, Musculoskeletal, Integumentary, Endocrine and Eyes /Ears/Nose/Throat Exam Surgical H&P Exam: Normal: HEENT, Normal: Heart, Normal: Lungs, Normal: Extremities, Normal: Abdomen, Normal: Skin and Normal: Neurological Plan I have reviewed the history and physical and performed a pertinent physical examination on my patient. No changes have occurred unless specified. Time Spent With Patient Time: Total time managing care of this patient today ____ minutes.
[2024-04-16] VITALS (13 sets, daily range): BP systolic 126–162; BP diastolic 66–84; PULSE 73–88; RESP 14–16; TEMP 36.1–36.8; O2SAT 95–99; BMI 21.7
[2024-04-16 09:29] LABS: Glucose, Whole Blood 98 mg/dL (60-115)
[2024-04-16] MEDS: Lactated Ringers 1,000 ML 100 ML IVCONT (09:59)
--- NOTE | 2024-04-16 10:15 | HO.ANESPROP2 ---
Documented by User: Irena Bernal NP 04/07/24 13:32 HPI - Anesthesia Eval Consult details Narrative: 63yo M for Cholecystectomy Laparoscopic [facility] admit 12/2023: septic shock secondary to acalculous cholecystitis, bacteremia and pyelonephritis initially requiring vasopressor support in the ICU. He was seen evaluated by General surgery, had a cholecystostomy tube placed. Tube generally stays in for 6 weeks and he will need to follow up with General surgery in the office in 2 weeks. He was also treated for pyelonephritis with IV ceftriaxone, seen evaluated by Urology with no suggestion of abscess on CT or hydro. He was noted to have E coli bacteremia likely secondary to pyelonephritis and was treated with IV ceftriaxone and will continue a total 14 days with Ceftin at home. Follows renal for diabetic nephrothapy. ALEC from 12/2023 admit resolved. Baseline creat ~1.1 Anesthesia Pre-Procedure Meds Is the patient on any of the following meds?: SGLT2 Inhib PMFSH Active Problems Active Problems: All Active Problems History of acute cholecystitis (Acute) Proteinuria (Acute) Past Medical History Medical History (Updated 04/09/24 @ 00:00 by Anneilse Corrales) Language barrier Diabetes FH: cholecystectomy (~12/2023) ALEC (acute kidney injury) Surgical History Surgical History (Updated 04/05/24 @ 11:38 by Aline Zhong RN) H/O insertion of cholecystostomy tube Social History Social History Household Members: Family Household Members Other:: , 6 children Housing: House Are you a primary health care marketing manager to a significant other at home: No Do you presently have visiting nurse or other home services: No Patient Tobacco Use Status: Current everyday Tobacco user Tobacco use type: Cigarette Cigarettes Per Day: 4 Years Smoked: 30 Use of substances other than those prescribed or required for medical reasons: No Have you been hit, kicked, punched, or otherwise hurt by someone within the past year? If so, by whom?: No Spiritual Healthcare Practices: none Synagogue Healthcare Practices: Yazdanism Cultural Healthcare Practices: none Are you DNR?: No Advance Directives: No (son & daughter are emergency contacts) Advance Directives Information Provided: Yes Advance Directives on File: No Recently lost weight without trying: No Eating poorly because of decreased appetite: No Nutrition Risks: No Nutritional Risk Poor oral hygiene: Yes (loose/broken teeth right upper) service: No Meds Allergies Allergy/AdvReac Type Severity Reaction Status Date / Time No Known Allergies Allergy Verified 04/16/24 09:26 Home Medications ?Medication ?Instructions ?Recorded ?Confirmed ?Last Taken ?Type empagliflozin 10 mg tablet 10 mg PO QAM 01/13/24 04/16/24 04/13/24 History (Jardiance) metformin 500 mg tablet,extended 1,000 mg PO BID 01/13/24 04/16/24 04/15/24 History release 24 hr Vitamin C 04/16/24 04/16/24 Unknown History iron 04/16/24 04/13/24 History Exam Height,Weight and Vital Signs: Height 5 ft 7 in Weight 63.503 kg Last Vital Signs Pulse 88 04/06/24 12:25 Resp 20 04/06/24 12:25 BP 112/73 04/06/24 12:25 Pulse Ox 100 04/06/24 12:25 O2 Del Method Room Air 04/06/24 12:25 Pertinent Lab Results Pertinent Lab Results: Lab Results 04/06/24 04/06/24 Range/Units 13:08 13:10 WBC 8.0 (4.8-10.8) X10*3/uL RBC 4.19 L (4.60-5.80) X10*6/uL Hgb 11.6 L (14.0-18.0) g/dl Hct 36.1 L (42.0-52.0) % MCV 86.2 (80.0-98.0) fL MCH 27.7 (27.0-33.0) pg MCHC 32.1 (31.0-36.0) g/dl RDW 14.6 (11.0-16.0) % Plt Count 214 (160-400) X10*3/uL MPV 9.9 (9.4-12.4) fL Absolute Nucleated RBC 0.000 (0.0-0.012) X10*3/uL Nucleated RBC % (auto) 0.0 (0.0-0.2) /100WBC Sodium 138 (135-145) mmol/L Potassium 4.3 (3.3-5.1) mmol/L Chloride 105 (96-108) mmol/L Carbon Dioxide 26 (22-29) mmol/L Anion Gap 11 L (12-20) BUN 16 (9-16) mg/dL Creatinine 1.31 (0.5-1.4) mg/dL Estim Creat Clear Calc 53.1 Estimated GFR 56 Random Glucose 134 H (60-115) mg/dL Calcium 9.4 D (8.4-10.2) mg/dL U Random Total Protein 11 (<12) mg/dL Urine Creatinine 82.42 mg/dL Protein/Creatinin Ratio 0.13 (<0.2) Narrative Narrative: EKG Vent. Rate : 106 BPM Atrial Rate : 106 BPM P-R Int : 128 ms QRS Dur : 080 ms QT Int : 336 ms P-R-T Axes : 060 052 063 degrees QTc Int : 446 ms Sinus tachycardia Otherwise normal ECG No previous ECGs available Assessment and Plan Assessment Anesthesia Assessment: Chart Reviewed Documented by User: Lavinia Barragan DO 04/16/24 10:51 HPI - Anesthesia Eval Anesthesia Pre-Procedure Meds Is the patient on any of the following meds?: SGLT2 Inhib PMFSH Past Medical History Medical History (Updated 04/09/24 @ 00:00 by Annelise Corrales) Language barrier Diabetes FH: cholecystectomy (~12/2023) ALEC (acute kidney injury) Family History Family history of problems with anesthesia: No Surgical History Surgical History (Updated 04/05/24 @ 11:38 by Aline Zhong RN) H/O insertion of cholecystostomy tube History of Problems with Anesthesia: No Social History Social History Household Members: Family Household Members Other:: , 6 children Housing: House Are you a primary health care marketing manager to a significant other at home: No Do you presently have visiting nurse or other home services: No Patient Tobacco Use Status: Current everyday Tobacco user Tobacco use type: Cigarette Cigarettes Per Day: 4 Years Smoked: 30 Use of substances other than those prescribed or required for medical reasons: No Have you been hit, kicked, punched, or otherwise hurt by someone within the past year? If so, by whom?: No Spiritual Healthcare Practices: none Synagogue Healthcare Practices: Yazdanism Cultural Healthcare Practices: none Are you DNR?: No Advance Directives: No (son & daughter are emergency contacts) Advance Directives Information Provided: Yes Advance Directives on File: No Recently lost weight without trying: No Eating poorly because of decreased appetite: No Nutrition Risks: No Nutritional Risk Poor oral hygiene: Yes (loose/broken teeth right upper) service: No Meds Allergies Allergy/AdvReac Type Severity Reaction Status Date / Time No Known Allergies Allergy Verified 04/16/24 09:26 Home Medications ?Medication ?Instructions ?Recorded ?Confirmed ?Last Taken ?Type empagliflozin 10 mg tablet 10 mg PO QAM 01/13/24 04/16/24 04/13/24 History (Jardiance) metformin 500 mg tablet,extended 1,000 mg PO BID 01/13/24 04/16/24 04/15/24 History release 24 hr Vitamin C 04/16/24 04/16/24 Unknown History iron 04/16/24 04/13/24 History Exam Exam Date and Time: 04/16/24 1015 Height,Weight and Vital Signs: Height 5 ft 7 in Weight 63.503 kg Last Vital Signs Pulse 88 04/06/24 12:25 Resp 20 04/06/24 12:25 BP 112/73 04/06/24 12:25 Pulse Ox 100 04/06/24 12:25 O2 Del Method Room Air 04/06/24 12:25 Vital Signs Pulse Rate 88 04/06/24 12:25 Respiratory Rate 20 04/06/24 12:25 Blood Pressure 112/73 04/06/24 12:25 Pulse Oximetry 100 04/06/24 12:25 Oxygen Delivery Method Room Air 04/06/24 12:25 Temperature 98.2 F 04/16/24 09:16 Pulse Rate 73 04/16/24 09:16 Respiratory Rate 16 04/16/24 09:16 Blood Pressure 137/84 04/16/24 09:16 Pulse Oximetry 99 04/16/24 09:16 Oxygen Delivery Method Room Air 04/16/24 09:16 Airway Mallampati Class: II TM Dist: >3cm Neck ROM: Full Loose/Missing/Broken Teeth: No (patient denies any loose or broken teeth) Heart: S1S2 Lungs: Coarse breath sounds bilaterally Assessment and Plan Assessment Anesthesia Assessment: Anesthesia Plan Discussed and Chart Reviewed Final Anesthetic Review Family History of Problems with Anesthesia: No History of Problems with Anesthesia: No NPO: Yes ASA Class: II Final Preanesthetic Review: No Changes in Pt Med Stat, Meds/Allgs Chart Reviewed, Consent Obtained/Reviewed and Anes Risks/Benef Reviewed Patient Risk: Low Procedure Risk: Intermediate Anesthetic Plan Anesthetic Plan: GA and Agree w/ Assess. and Plan Disposition: Standard PACU
--- NOTE | 2024-04-16 11:30 | W.PM.OPN ---
Operative Note Operative Note Date of Service: 04/16/24 Narrative: Preoperative diagnosis: [] Symptomatic gallbladder, status post IR gallbladder drainage. Postop diagnosis: [] The same Procedure [] laparoscopic cholecystectomy Surgeon: [] Harry Corporate Administrator: [] Antonina Type of Anesthesia: [] General Indication for surgery: [] Gallbladder with dense omental adhesions to it. Moderately intrahepatic gallbladder. IR drain removed after induction of anesthesia. Findings: [] Patient brought to the operating room, placed on operative table supine position, after an adequate level of general anesthesia was induced, the patient's abdomen was prepped and draped in usual sterile fashion. Using a supraumbilical curvilinear incision, Ledesma technique was used to insufflate abdominal cavity to 15 mm of CO2. Upper midline and right subcostal ports were placed under direct laparoscopic view, and the patient placed in reverse Trendelenburg position, and tilted to the left. Findings were as noted above. Gallbladder was grasped using laparoscopic graspers and retracted superiorly and laterally. Significant omental adhesions were swept off the gallbladder and the hilum was approached. Cystic artery and cystic duct were each identified, circumferentially skeletonized, traced directly into the gallbladder, and critical view obtained. Each was clipped proximally x2, distally x1, and transected. The gallbladder , which was moderately intrahepatic , was then cauterized from the gallbladder fossa using Bovie. Specimen placed in an Endo-Catch bag, and retrieved through the umbilical port. Abdominal cavity was copiously irrigated and secured hemostasis. All ports removed under direct laparoscopic view. Wounds were closed in the following manner; umbilical wound at its fascia reapproximated using interrupted 0 Vicryl sutures. Skin wounds were closed using subcuticular 4-0 Vicryl sutures followed by Steri-Strips and sterile dressings. Wounds were infiltrated 0.5% Marcaine /1% lidocaine at completion. Sponge, needle, and instrument counts reported correct. Patient tolerated the procedure well and emerged from anesthesia stable condition. EBL minimal
[2024-04-16] MEDS: fentaNYL citrate/PF 100 MCG/2 ML VIAL 50 MCG IVPUSH ×3 (12:00→12:20)
== END 2024-04-16 14:50 | disposition home or self-care (01) ==
PROVIDERS: Nurse Practitioner; Nurse Practitioner Family; Visit Provider Surgery
PROC: 0FT44ZZ Resection of Gallbladder, Percutaneous Endoscopic Approach (ICD-10-PCS; CPT 47562; principal; 2024-04-16 10:10)
DX: K81.2 Acute cholecystitis with chronic cholecystitis (principal); K82.8 Other specified diseases of gallbladder; Q44.1 Other congenital malformations of gallbladder; Z90.49 Acquired absence of other specified parts of digestive tract; Z93.59 Other cystostomy status; N17.8 Other acute kidney failure; E11.29 Type 2 diabetes mellitus with other diabetic kidney complication; R80.9 Proteinuria, unspecified; D64.9 Anemia, unspecified; Z60.3 Acculturation difficulty; Z79.84 Long term (current) use of oral hypoglycemic drugs; Z79.899 Other long term (current) drug therapy; F17.210 Nicotine dependence, cigarettes, uncomplicated
CPT/HCPCS: 47562; 36415; 80048; 82570; 82947; 84156; 85027; 88304; J0131; J0690; J1100; J1885; J2003; J2405; J2704; J2795; J3010

== ENCOUNTER → 2024-04-16 08:35 | Outpatient (BNV) | payer OTHER, SELFPAY | PROVIDERS: Visit Provider Surgery | DX: K81.1 Chronic cholecystitis (principal) | CPT/HCPCS: 47562 ==

== ENCOUNTER 2024-04-26 09:35 | Outpatient (AMB) | payer OTHER, SELFPAY ==
--- NOTE | 2024-04-26 09:42 | MHC.OFFVIS ---
Intake Visit Reasons: s/p LAP poss open Intake Note: Patient here s/p laparoscopic cholecystectomy. Reports incision healing well. Patient c/o: on and off sharp pain at tube site. Pain becomes more botherosme when coughing, sneezing, laying on Rt side. Surgery: 04-16-2024 Customer Acquisition Manager Required: Yes Customer Acquisition Manager Services: Customer Acquisition Manager Present Customer Acquisition Manager Name: Ping [facility]~Marla Information Interpreted: non-clinical only Accompanied by: Ping~ venezuel[place] creole Allergies No Known Allergies Allergy (Verified 04/26/24 09:44) HPI Comments Details: Patient presents with his friend who served as an bookkeeping machine operator. All things considered, he is doing quite well. Starting a diet. Having regular bowel habits. He is has occasional incisional discomfort but nothing of great concern. PENDING SALE TO [facility] Medical History (Updated 04/09/24 @ 00:00 by Annelise Corrales) Language barrier Diabetes FH: cholecystectomy (~12/2023) ALEC (acute kidney injury) Surgical History (Updated 04/26/24 @ 09:51 by Efra Mcdonald MD) H/O insertion of cholecystostomy tube Social History Household Members: Family Household Members Other:: , 6 children Housing: House Are you a primary care analyst to a significant other at home: No Do you presently have visiting nurse or other home services: No Patient Tobacco Use Status: Current everyday Tobacco user Tobacco use type: Cigarette Cigarettes Per Day: 4 Years Smoked: 30 service: No Physical Exam Eyes Other: Sclerae appear anicteric although difficult because of the patient's complexion. GI Other: Abdomen is soft. All wounds clean dry and intact healing very well Assessment & Plan Assessment & Plan (1) Status post laparoscopic cholecystectomy: Code(s): Z90.49 - Acquired absence of other specified parts of digestive tract Category: Surgical Plan Patient was been given local instructions, and will otherwise follow-up p.r.n.. All questions answered. Coding Level of Care Code Global (21179) Diagnoses Status post laparoscopic cholecystectomy Z90.49
--- OUTSIDE RECORDS SUMMARY | 2024-04-26 13:57 | XMS_ITS ---
Author Organization [address] Address [address] [place] [phone] Phone Care Team Providers Care Fluid Power Mechanic Name Role Phone David Perez MD Primary Care Provider [phone] Community Health Worker Program Status:Ongoing (Active) Start date:08/19/2023 Enrollment date:04/14/2024 Enrollment reason:Identified as high-risk Current support & services provided:Adult Overview Community Health Worker Program Case Team Name Relationship Phone Ephraim Mack Community Health Worker(Respons ible Staff) Continued Care and Services Coordination
--- OUTSIDE RECORDS SUMMARY | 2024-04-26 13:57 | XMS_ITS | Clinical Summary ---
Author Organization [address] Address [address] [place] [phone] Phone Care Team Providers Care Automobile Inspector Name Role Phone David Perez MD Primary Care Provider Allergies No known active allergies Medications Medication Sig Dispensed Refills Start Date End Date Status blood-glucose meter kit 1 Device by Not Applicable route 1 (one) time each day. 08/06/2023 Active FREESTYLE LANCETS MISC 1 Device by Not Applicable route 1 (one) time each day. 08/06/2023 Active lactose-reduced food (BOOST ORAL) Take 1 Bottle by mouth 1 (one) time each day. 07/09/2023 Active empagliflozin (Jardiance) 10 mg tablet Take 1 tablet (10 mg total) by mouth 1 (one) time each day in the morning. 01/07/2024 Active metFORMIN XR (GLUCOPHAGE-XR) 500 mg 24 hr tablet Take 2 tablets (1,000 mg total) by mouth 2 (two) times a day. Change in formulation and directions 01/07/2024 07/05/2024 Active blood sugar diagnostic (FreeStyle Lite Strips) test strip 1 each by Other route 1 (one) time each day. Use to test blood sugar daily 100 each 1 02/24/2024 Active magnesium 250 mg tabletIndications: Hypomagnesemia Take 1 tablet by mouth at bedtime. 90 tablet 3 03/10/2024 Active lisinopriL (PRINIVIL,ZESTRIL) 5 mg tablet Take 1 tablet (5 mg total) by mouth 1 (one) time each day. 03/11/2024 Active ferrous sulfate 325 mg (65 mg iron) EC tablet Take 1 tablet (325 mg total) by mouth 1 (one) time each day with breakfast. Do not crush, chew, or split. 90 each 3 04/14/2024 04/14/2025 Active ascorbic acid (VITAMIN C) 250 mg tablet Take 1 tablet (250 mg total) by mouth 1 (one) time each day. 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 30 each 04/14/2024 05/14/2024 Active nicotine polacrilex (NICORETTE) [address] 1 each (4 mg total) into mouth between cheek and gum if needed for smoking cessation. 100 each 3 04/14/2024 07/13/2024 Active Active Problems Problem Noted Date Diagnosed Date Septicemia due to Escherichia coli (E. coli)(038 .42) 03/01/2024 Acute cholecystitis 03/01/2024 Encounter for change or removal of drains 2023 Encounter for change or removal of surgical woun d dressing 03/01/2024 Type 2 diabetes mellitus without complications 1 05/02/2023 Anemia, unspecified 03/01/2024 Chronic midline low back pain without sciatica 0 10/09/2023 T2DM (type 2 diabetes mellitus) 08/06/2023 Encounters Date Type Department Care Team Description 04/26/2024 [facility] [address] [place] [phone] Ephraim Mack 04/16/2024 [facility] [address] [place] [phone] Ephraim Mack 04/14/2024 1:00 PM EST Office Visit Internal Medicine - [place] [address] [facility] [address] [place] [phone] David Perez MD Encounter for annual physical exam (Primary Dx); Type 2 diabetes mellitus with other diabetic kidney complication, without long-term current use of insulin ([facility]); Type 2 diabetes mellitus without complication, without long-term current use of insulin ([facility]); Acute cholecystitis; Anemia, unspecified type; Tobacco dependency 03/25/2024 Telephone Internal Medicine [address] [phone] Kaya Carballo [place] Request For Order(s) (Monique GOULD Discharge Summary /) 03/16/2024 Telephone Internal [address] [phone] Kaya Carballo [place] Request For Order(s) (Monique GOULD Physicians Missed Visit 03/11/24/) 03/04/2024 1:00 PM EST Office Visit Internal [address] [phone] Kandi Patel PA Acalculous cholecystitis (Primary Dx); Septicemia due to Escherichia coli (E. coli)(038.42) ([facility]); Pyelonephritis; Transaminitis; Hypomagnesemia; Hypokalemia; Type 2 diabetes mellitus with other diabetic kidney complication, without long-term current use of insulin ([facility]); Hospital discharge follow-up 03/04/2024 Telephone Internal Medicine [address] [phone] David Perez MD 03/01/2024 Billing Patient Not Present Internal [address] [phone] David Perez MD Septicemia due to Escherichia coli (E. coli)(038.42) ([facility]) (Primary Dx); Acute cholecystitis; Encounter for change or removal of drains; Encounter for change or removal of surgical wound dressing; Type 2 diabetes mellitus without complication, unspecified whether extermination supervisor insulin use ([facility]); Anemia, unspecified type 02/13/2024 Telephone Internal Medicine [address] [phone] May Robledo [place] faxed order ([facility]) 02/03/2024 Telephone Internal Medicine - [place] 175 [facility] 200 [place] [address] Kaya Carballo [place] Request For Order(s) ([facility] Cert 01/21/24-03/20/24 Plan Of Care ) from Last 3 Months Medical History Medical History Date Comments Cholecystitis 01/15/2024 Family History Medical History Relation Name Comments Diabetes Maternal Grandmother Relation Name Status Comments Father Maternal Grandfather Maternal Grandmother Mother Paternal Grandfather Paternal Grandmother Social History Tobacco Use Types Packs/Day Years Used Date Smoking Tobacco: Every Day Cigarettes Tobacco Cessation:Ready to Q uit: Not Asked; Counseling Given: Not Answered Alcohol Use Standard Drinks/Week Comments Not Currently 0 (1 standard drink = 0.6 oz pur e alcohol) Sex and Gender Information Value Date Recorded Sex Assigned at Not on file Gender Identity Not on file Sexual Orientation Not on file Job Start Date Occupation Industry Not on file Not on file Not on file Obstetrics History Last Filed Vital Signs Vital Sign Reading Time Taken Comments Blood Pressure 115/76 04/14/2024 1:17 PM EST Pulse 86 04/14/2024 1:17 PM EST Temperature 36.7 ??C (98 ??F) 04/14/2024 1:17 PM EST Respiratory Rate - - Oxygen Saturation 95% 04/14/2024 1:17 PM EST Inhaled Oxygen Concentration - - Weight 64 kg (141 lb) 04/14/2024 1:17 PM EST Height 175.3 cm (5' 9 ) 04/14/2024 1:17 PM EST Body Mass Index 20.82 04/14/2024 1:17 PM EST Plan of Treatment Upcoming Encounters Date Type Department Care Team (Late st Contact Info) Description 04/27/2024 3:45 PM EST Office Visit Internal Medicine - [place] 175 [facility] 200 [place] [phone] David Perez MD [address] [facility] 200 [place] [address] 05/18/2024 2:00 PM EST Clinical Support Lung Screening Program - [address] [place] [phone] 05/18/2024 2:15 PM EST Appointment [facility] CT Scan [address] [place] [phone] 08/19/2024 3:30 PM EDT Appointment [facility] Endoscopy [address] [place] [phone] Eulalia Vragas MD 175 [facility] 200 [place] [address] Health Maintenance Due Date Last Done Comments Pneumococcal Vaccine: Pediatrics (0 to 5 Years) and At-Risk Patients (6 to 64 Years) (1 of 2 - PCV) 1968 Diabetes: Annual Foot Exam 1972 Diabetes: Annual Retina Eye Exam 1972 DTaP,Tdap,and Td Vaccines (1 - Tdap) 1981 Hepatitis A Vaccines (1 of 2 - Risk 2-dose series) 1981 Zoster Vaccines (1 of 2) 2012 RSV Immunization Patients 60 + Years Old (1 - Risk 60-74 years 1-dose series) 2022 Colorectal Cancer Screening: Colonoscopy 10/24/2023 COVID-19 Vaccine ( - 2023-2 5 season) 2023 Influenza Vaccine (#1) 2023 Diabetes: Blood Sugar Contro l Test (HGBA1C) 09/02/2024 03/04/2024, 10/09/2023, 10/09/2023 Diabetes: Annual Urine Albumin-Creatinine Ratio (uACR) 10/08/2024 10/09/2023 Diabetes: Annual GFR (Glomerular Filtration Rate) 03/04/2025 03/04/2024, 07/11/2023 Depression Screening 04/14/2025 04/14/2024 Social Influencers of Health Screening 04/14/2025 04/14/2024 Cholesterol Screening (Lipid Panel) 07/10/2028 07/11/2023 HIV Screening Completed 07/11/2023 Hepatitis C Screening Completed 07/11/2023 HIB Vaccines Aged Out No longer eligi ble based on patient's age to complete this topic HPV Vaccines Aged Out No longer eligi ble based on patient's age to complete this topic Hepatitis B Vaccines Aged Out No long er eligible based on patient's age to complete this topic IPV Vaccines Aged Out No longer eligi ble based on patient's age to complete this topic MMR Vaccines Aged Out No longer eligi ble based on patient's age to complete this topic Meningococcal ACWY Vaccine Aged Out N o longer eligible based on patient's age to complete this topic RSV Immunization Patients Under 20 months Aged Out No longer eligible b ased on patient's age to complete this topic Varicella Vaccines Aged Out No longer eligible based on patient's age to complete this topic Procedures Procedure Name Priority Date/Time Associated Diagnosis Comments CBC WITH AUTO DIFFERENTIAL Routine 03/04/2024 1:47 PM EST Acalculous cholecystitis Pyelonephritis MAGNESIUM Routine 03/04/2024 1:47 PM EST Hypomagnesemia CBC AND DIFFERENTIAL Routine 03/04/2024 1:47 PM EST Acalculous cholecystitis Pyelonephritis HEMOGLOBIN A1C Routine 03/04/2024 1:47 PM EST Type 2 diabetes mellitus with other diabetic kidney complication, without long-term current use of insulin (CMS/HCC) COMPREHENSIVE METABOLIC PANEL Routine 03/04/2024 1:47 PM EST Transaminitis Hypokalemia Type 2 diabetes mellitus with other diabetic kidney complication, without long-term current use of insulin (CMS/HCC) HM URINE ALBUMIN CREATININE RATIO Routine 10/09/2023 HM HEPATITIS C SCREENING Routine 07/11/2023 HM HIV SCREENING Routine 07/11/2023 LIPID PANEL Routine 07/11/2023 from Last 3 Months or Most Recently Relevant to Health Maintenance Results * (ABNORMAL) CBC auto differential (03/04/2024 1:47 PM EST) WBC 7.5 4.8 - 10.8 K/mcL LAB HEMETOLOGY METHOD 03/04/2024 6:40 PM [facility] RBC 4.00(L) 4.50 - 5.50 M/mcL LAB HEMETOLOGY METHOD 03/04/2024 6:40 PM [facility] Hemoglobin 10.5(L) 13.5 - 17.5 g/dL LAB HEMETOLOGY METHOD 03/04/2024 6:40 PM [facility] Hematocrit 34.4(L) 42.0 - 54.0 % LAB HEMETOLOGY METHOD 03/04/2024 6:40 PM [facility] MCV 86.9 79.0 - 98.0 FL LAB HEMETOLOGY METHOD 03/04/2024 6:40 PM [facility] MCH 26.5(L) 27.0 - 32.0 pcg LAB HEMETOLOGY METHOD 03/04/2024 6:40 PM [facility] MCHC 30.5(L) 32.0 - 37.0 g/dL LAB HEMETOLOGY METHOD 03/04/2024 6:40 PM [facility] RDW 14.8 11.0 - 15.0 % LAB HEMETOLOGY METHOD 03/04/2024 6:40 PM [facility] Platelets 275 130 - 400 K/mcL LAB HEMETOLOGY METHOD 03/04/2024 6:40 PM [facility] MPV 10.2 7.0 - 11.0 FL LAB HEMETOLOGY METHOD 03/04/2024 6:40 PM [facility] NRBC 0.0 <1.0 % LAB HEMETOLOGY METHOD 03/04/2024 6:40 PM [facility] NRBC Absolute 0.00 <0.10 K/mcL LAB HEMETOLOGY METHOD 03/04/2024 6:40 PM [facility] Neutrophils Relative 51.8 % LAB HEMETOLOGY METHOD 03/04/2024 6:40 PM [facility] Lymphocytes Relative 39.1 % LAB HEMETOLOGY METHOD 03/04/2024 6:40 PM [facility] Monocytes Relative 5.5 % LAB HEMETOLOGY METHOD 03/04/2024 6:40 PM [facility] Eosinophils Relative 2.8 % LAB HEMETOLOGY METHOD 03/04/2024 6:40 PM [facility] Basophils Relative 0.5 % LAB HEMETOLOGY METHOD 03/04/2024 6:40 PM [facility] Immature Granulocytes Relative 0.3 % LAB HEMETOLOGY METHOD 03/04/2024 6:40 PM [facility] Neutrophils Absolute 3.89 1.50 - 7.00 K/mcL LAB HEMETOLOGY METHOD 03/04/2024 6:40 PM [facility] Lymphocytes Absolute 2.94 1.00 - 5.00 K/mcL LAB HEMETOLOGY METHOD 03/04/2024 6:40 PM [facility] Monocytes Absolute 0.41 0.20 - 1.00 K/mcL LAB HEMETOLOGY METHOD 03/04/2024 6:40 PM [facility] Eosinophils Absolute 0.21 0.00 - 0.50 K/mcL LAB HEMETOLOGY METHOD 03/04/2024 6:40 PM [facility] Basophils Absolute 0.04 0.00 - 0.20 K/mcL LAB HEMETOLOGY METHOD 03/04/2024 6:40 PM [facility] Immature Granulocytes Absolute 0.02 0.00 - 0.03 K/mcL LAB HEMETOLOGY METHOD 03/04/2024 6:40 PM [facility] Blood Venous blood specimen / Unknown Venipuncture / Unknown 03/04/2024 1:47 PM EST 03/04/2024 1:47 PM EST [facility] BLOOD ORDERA BLES Performing Organization Address City/[facility]/ZIP Co de Phone Number [facility] [address] [place] [address], * (ABNORMAL) Magnesium (03/04/2024 1:47 PM EST) Magnesium 1.8(L) 1.9 - 2.6 mg/dL LAB CHEMISTRY METHOD 03/04/2024 6:40 PM EST [facility] Blood Venous blood specimen / Unknown Venipuncture / Unknown 03/04/2024 1:47 PM EST 03/04/2024 1:47 PM EST [facility] BLOOD ORDERA BLES Performing Organization Address [facility]/ZIP Co de Phone Number [facility] [address] [place] [address], * Hemoglobin A1c (03/04/2024 1:47 PM EST) Pathologist [facility] Hemoglobin A1C 6.0 <6.5 % LAB CHEMISTRY METHOD 03/04/2024 8:16 PM EST [facility] Mean Bld Glu Estim. 126 mg/dL LAB CHEMISTRY METHOD 03/04/2024 8:16 PM EST [facility] Blood Venous blood specimen / Unknown Venipuncture / Unknown 03/04/2024 1:47 PM EST 03/04/2024 1:47 PM EST [facility] BLOOD ORDERA BLES Performing Organization Address City/[facility]/ZIP Co de Phone Number [facility] [address] [place] [address], [place] [phone] * Comprehensive metabolic panel (03/04/2024 1:47 PM EST) Sodium 140 133 - 145 mmol/L LAB CHEMISTRY METHOD 03/04/2024 6:40 PM [facility] Potassium 4.4 3.5 - 5.5 mmol/L LAB CHEMISTRY METHOD 03/04/2024 6:40 PM [facility] Chloride 108 96 - 110 mmol/L LAB CHEMISTRY METHOD 03/04/2024 6:40 PM [facility] CO2 28 21 - 32 mmol/L LAB CHEMISTRY METHOD 03/04/2024 6:40 PM [facility] Anion Gap 4 3 - 11 LAB CHEMISTRY METHOD 03/04/2024 6:40 PM [facility] Glucose 95 70 - 100 mg/dL LAB CHEMISTRY METHOD 03/04/2024 6:40 PM [facility] BUN 13 5 - 25 mg/dL LAB CHEMISTRY METHOD 03/04/2024 6:40 PM [facility] Creatinine 1.25 0.70 - 1.30 mg/dL LAB CHEMISTRY METHOD 03/04/2024 6:40 PM [facility] eGFR 66 >=60 mL/min/1. 73m2 LAB CHEMISTRY METHOD 03/04/2024 6:40 PM [facility] Comment:Calculation based on the??Chronic Kidney Disease Epidemiology Collaboration (CKD-EPI) equation refit??without adjustment for race. BUN/Creatinine Ratio 10.4 LAB CHEMISTRY METHOD 03/04/2024 6:40 PM [facility] Calcium 9.5 8.5 - 10.5 mg/dL LAB CHEMISTRY METHOD 03/04/2024 6:40 PM [facility] AST (SGOT) 14 10 - 42 unit/L LAB CHEMISTRY METHOD 03/04/2024 6:40 PM [facility] ALT (SGPT) 20 10 - 60 unit/L LAB CHEMISTRY METHOD 03/04/2024 6:40 PM [facility] Alkaline Phosphatase 79 42 - 121 unit/L LAB CHEMISTRY METHOD 03/04/2024 6:40 PM [facility] Total Protein 7.6 6.0 - 8.0 g/dL LAB CHEMISTRY METHOD 03/04/2024 6:40 PM EST [facility] Albumin 3.6 3.2 - 5.0 g/dL LAB CHEMISTRY METHOD 03/04/2024 6:40 PM EST [facility] Total Bilirubin 0.2 0.0 - 1.4 mg/dL LAB CHEMISTRY METHOD 03/04/2024 6:40 PM EST [facility] Blood Venous blood specimen / Unknown Venipuncture / Unknown 03/04/2024 1:47 PM EST 03/04/2024 1:47 PM EST [facility] BLOOD ORDERA BLES [facility] [address] [place] [address], * Urine Albumin Creatinine Ratio (10/09/2023) Pathologist [facility] Urine Albumin Creatinine Ratio Abstracted Historical Provider [facility] * HIV Screening (07/11/2023) [facility] HIV Screening Abstracted Historical [facility] * Hepatitis C Screening (07/11/2023) [facility] Hepatitis C Screening Abstracted Historical Provider [facility] * (ABNORMAL) Lipid panel (07/11/2023) [facility] LDL/HDL Ratio 6(A) 0 - 4 Triglycerides 116 0 - 150 mg/dL Cholesterol 200 0 - 200 mg/dL HDL 32(A) 40 mg/dL LDL Cholesterol 145(A) 0 - 100 mg/dL Blood Venous blood specimen / Unknown Historical Provider LAB BLOOD ORDERAB LES from Last 3 Months or Most Recently Relevant to Health Maintenance Care Teams Automobile Inspector Relationship Specialty Start Date End Date David Perez MD [address] [place] [address] [address] [place] [address] PCP - General 05/07/23
--- OUTSIDE RECORDS SUMMARY | 2024-04-26 13:57 | XMS_ITS | Encounter Summary ---
Author Organization [facility] Address [address] [place] [address] Care Team Providers Care Caterers Helper Name Role Phone David Perez MD Primary Care Provider [phone] Encounter Details Date Type Department Care Team (Late st Contact Info) Description 04/16/2024 Community Care Management [place] [facility] [address] [place] [phone] Ephraim Mack Social History Tobacco Use Types Packs/Day Years Used Date Smoking Tobacco: Every Day Cigarettes Alcohol Use Standard Drinks/Week Comments Not Currently 0 (1 standard drink = 0.6 oz pur e alcohol) Sex and Gender Information Value Date Recorded Sex Assigned at Not on file Gender Identity Not on file Sexual Orientation Not on file Job Start Date Occupation Industry Not on file Not on file Not on file documented as of this encounter Progress Notes * Ephraim Mack - 04/16/2024 3:55 PM EST Outreached patient on 04/16/24 Reason for visit: CHW visited patient for patient education on new medication management due to recent short stay surgery. Outcome: Patient understands the importance of medication management and will follow instructions given by provider Follow up plan: Will follow up in 2-3 days for further review Ping Mack Community Health Worker documented in this encounter Plan of Treatment Upcoming Encounters Date Type Department Care Team (Late Contact Info) Description 04/27/2024 3:45 PM EST Office Visit Internal Medicine - [place] 175 [facility] [address] [place] [address] David Perez MD 175 [facility] [address] [place] [address] 05/18/2024 2:00 PM EST Clinical Support Lung Screening Program - [place] 299 [facility] [address] [place] [phone] 05/18/2024 2:15 PM EST Appointment [facility] CT Scan [address] [place] [phone] 08/19/2024 3:30 PM EDT Appointment [facility] Endoscopy [address] [place] [phone] Eulalia Vargas MD 175 [facility] [address] [place] [address] documented as of this encounter Visit Diagnoses Not on filedocumented in this encounter Care Teams Caterers Helper Relationship Specialty Start Date End Date David Perez MD 175 [facility] [address] [place] [address] PCP - General 05/07/23 documented as of this encounter
--- OUTSIDE RECORDS SUMMARY | 2024-04-26 13:57 | XMS_ITS | Encounter Summary ---
Author Organization [facility] Address [address] [place] [address] Care Team Providers Care Logger All Round Name Role Phone David Perez MD Primary Care Provider [phone] Reason for Referral * Consultation (Routine) - Denied Specialty Diagnoses / Procedures Referred By Contac t Referred To Contact Gastroenterology Diagnoses Encounter for annual physical exam David Perez MD 175 [facility] [address] [place] [address] [facility] Gastroenterology 175 175 [facility] [address] [place] [address] Referral ID Status Reason Start Date Expiration Date V isits Requested Visits Authorized [id number] Denied Specialty Services Required 04/14/2024 04/14/2025 1 0 * Consultation (Routine) - Authorized Specialty Diagnoses / Procedures Referred By Contac t Referred To Contact Thoracic Surgery Diagnoses Tobacco dependency David Perez MD 175 [facility] [address] [place] [address] [facility] Lung Screening [place] [address] [facility] [address] [place] [address] Referral ID Status Reason Start Date Expiration Date Visits Requested Visits Authorized [id number] Authorized Specialty Services Required 04/14/2024 04/14/2025 1 1 Reason for Visit * Reason Comments Annual Exam Encounter Details Date Type Department Care Team ([facility] st Contact Info) Description 04/14/2024 1:00 PM EST Office Visit Internal Medicine - [address] [place] [address] David Perez MD 175 [facility] [address] [place] [address] Encounter for annual physical exam (Primary Dx); Type 2 diabetes mellitus with other diabetic kidney complication, without long-term current use of insulin (CMS/HCC); Type 2 diabetes mellitus without complication, without long-term current use of insulin ([facility]); Acute cholecystitis; Anemia, unspecified type; Tobacco dependency Social History Tobacco Use Types Packs/Day Years [...] on file documented as of this encounter Last Filed Vital Signs Vital Sign Reading [...] Mass Index 20.82 04/14/2024 1:17 PM EST documented in this encounter Ordered Prescriptions Prescription Sig Dispensed Refills Start Date End Da te nicotine polacrilex (NICORETTE) [address] 1 each (4 mg total) into mouth between cheek and gum if needed for smoking cessation. 100 each 3 04/14/2024 07/13/2024 nicotine (NICODERM CQ) 14 mg/[address] 1 patch on the skin 1 (one) time each day at the same time. 30 each 04/14/2024 05/14/2024 ascorbic acid (VITAMIN C) 250 mg tablet Take 1 tablet (250 mg total) by mouth 1 (one) time each day. 90 each 3 04/14/2024 04/14/2025 ferrous sulfate 325 mg (65 mg iron) EC tablet Take 1 tablet (325 mg total) by mouth 1 (one) time each day with breakfast. Do not crush, chew, or split. 90 each 3 04/14/2024 04/14/2025 documented in this encounter Progress Notes * David Perez MD - 04/14/2024 1:00 PM EST Quitting Smoking Quitting smoking is the most important step you can take to improve your health. We're glad you have set a goal to improve your health. Quit Smoking Resources In addition to medications, use the STAR plan to help you successfully quit. Stick with your quit date! Tell friends, family, and coworkers your quit date. Request their understanding and support. Anticipate and prepare for challenges. Some examples are withdrawal symptoms, being around others who smoke, and drinking alcohol. Remove all tobacco products and paraphernalia from your environment. Make your home and vehicles smoke-free. Free resources for additional support: National tobacco quitline: 1-199-SOOF-NOW ( ). SmokefreeTXT is a free text program to assist you in quitting. Visit https://www.smokefree.gov/smokefreetxt for more information. * David Perez MD - 04/14/2024 1:00 PM EST CHIEF COMPLAINT: Annual Exam IDENTIFIER: Vivek Watts is a 63 y.o. old male who presents for evaluation of general medical health. HPI: History of Present Illness The patient is a 63-year-old male who presents for an annual physical and follow-up of the following complaints. He is accompanied by an charge hand. He has a scheduled laparoscopic cholecystectomy on Friday due to a recent episode of cholecystitis.He was hospitalized for sepsis and infection, during which a drain was placed. The surgery was postponed to manage the infection. He was recently prescribed pain medication during a hospital visit for discomfort. He has a postoperative follow-up appointment with the surgeon on 04/26/2024. He reports no back pain. He is currently on Jardiance 10 mg and metformin for diabetes management. His last blood work in February 2024 showed improved diabetes control. He is also taking lisinopril for hypertension. He is on magnesium supplementation due to a previously identified deficiency. He has a history of anemia, with low hemoglobin levels noted in his last blood work in February 2024. He has a history of cholecystitis, which led to the placement of a drain during his hospitalizationfor sepsis and kidney issues. The drain was initially intended to be removed but was retained for alonger period. It is now planned for removal during his upcoming surgery, or it may remain in placefor a few more weeks if necessary. He has a history of smoking but has been gradually reducing his intake. He is interested in using patches to aid in smoking cessation. He does not consume alcohol, street drugs, or excessive coffee. He is due for several vaccines, including COVID-19 booster, influenza, pneumonia, shingles, RSV, and tetanus. He has expressed a preference to receive these vaccines during a follow-up visit. He is concerned about colon cancer screening and is interested in undergoing a colonoscopy. SOCIAL HISTORY He admits to smoking cigarettes and is trying to quit. He does not drink alcohol or use street drugs. He has been for 30 years and has 7 children. He resides with his , 6 of his children,and a grandchild. He is currently unemployed and engages in walking and jogging for exercise. He does not have any pets at home. FAMILY HISTORY His grandmother had diabetes. He is unaware of any other family history of diseases. His parents and grandparents are . MEDICATIONS Jardiance, metformin, lisinopril, magnesium. IMMUNIZATIONS He is due for COVID-19 booster, influenza, pneumonia, shingles, RSV, and tetanus vaccines. Patient does try to eat a balanced diet, does not exercise regularly Patient does smoke, patient does not drink alcohol in excess, patient does not use street drugs, patient does not drink caffeinated beverages in excess. Patient is sexually active. Reports 1 partners in the past 12 months. Health Maintenance: Health Maintenance Due Topic Date Due Pneumococcal Vaccine: Pediatrics (0 to 5 Years) and At-Risk Patients (6 to 64 Years) (1 of 2 - PCV)Never done Diabetes: Annual Foot Exam Never done Diabetes: Annual Retina Eye Exam Never done DTaP,Tdap,and Td Vaccines (1 - Tdap) Never done Hepatitis A Vaccines (1 of 2 - Risk 2-dose series) Never done Zoster Vaccines (1 of 2) Never done RSV Immunization Patients 60+ Years Old (1 - Risk 60-74 years 1-dose series) Never done Colorectal Cancer Screening: Colonoscopy Never done Influenza Vaccine (1) Never done COVID-19 Vaccine () Never done ROS: Review of Systems as per HPI PAST MEDICAL HISTORY: Patient Active Problem List Diagnosis Date Noted Septicemia due to Escherichia coli (E. coli)(038.42) ([facility]) 03/01/2024 Acute cholecystitis 03/01/2024 Encounter for change or removal of drains 03/01/2024 Encounter for change or removal of surgical wound dressing 03/01/2024 Type 2 diabetes mellitus without complications ([facility]) 03/01/2024 Anemia, unspecified 03/01/2024 Chronic midline low back pain without sciatica 10/09/2023 T2DM (type 2 diabetes mellitus) ([facility]) 08/06/2023 History reviewed. No pertinent surgical history. There is no immunization history on file for this patient. HEALTH MAINTENANCE: Health Maintenance Topic Date Due Pneumococcal Vaccine: Pediatrics (0 to 5 Years) and At-Risk Patients (6 to 64 Years) (1 of 2 - PCV)Never done Diabetes: Annual Foot Exam Never done Diabetes: Annual Retina Eye Exam Never done DTaP,Tdap,and Td Vaccines (1 - Tdap) Never done Hepatitis A Vaccines (1 of 2 - Risk 2-dose series) Never done Zoster Vaccines (1 of 2) Never done RSV Immunization Patients 60+ Years Old (1 - Risk 60-74 years 1-dose series) Never done Colorectal Cancer Screening: Colonoscopy Never done Influenza Vaccine (1) Never done COVID-19 Vaccine () Never done Diabetes: Blood Sugar Control Test (HGBA1C) 09/02/2024 Diabetes: Annual Urine Albumin-Creatinine Ratio (uACR) 10/08/2024 Diabetes: Annual GFR (Glomerular Filtration Rate) 03/04/2025 Depression Screening 04/14/2025 Social Influencers of Health Screening 04/14/2025 Cholesterol Screening (Lipid Panel) 07/10/2028 HIV Screening Completed Hepatitis C Screening Completed HIB Vaccines Aged Out Hepatitis B Vaccines Aged Out IPV Vaccines Aged Out MMR Vaccines Aged Out Varicella Vaccines Aged Out Meningococcal ACWY Vaccine Aged Out HPV Vaccines Aged Out RSV Immunization Patients Under 20 months Aged Out SOCIAL HISTORY: Social History Tobacco Use Smoking status: Every Day Current packs/day: 0.25 Types: Cigarettes Smokeless tobacco: Not on file Substance Use Topics Alcohol use: Not Currently FAMILY HISTORY: Family History Problem Relation Name Age of Onset Diabetes Maternal Grandmother Family Status Relation Name Status Mother Father MGM MGF PGM PGF No partnership data on file MEDICATIONS DISCONTINUED/REORDERED: There are no discontinued medications. ACTIVE MEDICATIONS: Outpatient Medications Marked as Taking for the 04/14/24 encounter (Office Visit) with David Perez MD Medication Sig Dispense Refill blood sugar diagnostic (FreeStyle Lite Strips) test strip 1 each by Other route 1 (one) time each day. Use to test blood sugar daily 100 each 1 blood-glucose meter kit 1 Device by Not Applicable route 1 (one) time each day. empagliflozin (Jardiance) 10 mg tablet Take 1 tablet (10 mg total) by mouth 1 (one) time each day in the morning. FREESTYLE LANCETS MISC 1 Device by Not Applicable route 1 (one) time each day. lactose-reduced food (BOOST ORAL) Take 1 Bottle by mouth 1 (one) time each day. lisinopriL (PRINIVIL,ZESTRIL) 5 mg tablet Take 1 tablet (5 mg total) by mouth 1 (one) time each day. magnesium 250 mg tablet Take 1 tablet by mouth at bedtime. 90 tablet 3 metFORMIN XR (GLUCOPHAGE-XR) 500 mg 24 hr tablet Take 2 tablets (1,000 mg total) by mouth 2 (two) times a day. Change in formulation and directions ALLERGIES: No Known Allergies PHYSICAL EXAM: Visit Vitals BP 115/76 Pulse 86 Temp 36.7 ??C (98 ??F) (Oral) Ht 1.753 m (69 ) Wt 64 kg (141 lb) SpO2 95% BMI 20.82 kg/m?? Smoking Status Every Day BSA 1.78 m?? Body mass index is 20.82 kg/m??. Physical Exam HENT: Right Ear: External ear normal. Left Ear: External ear normal. Nose: Nose normal. Mouth/Throat: Mouth: Mucous membranes are moist. Pharynx: Oropharynx is clear. Eyes: Conjunctiva/sclera: Conjunctivae normal. Cardiovascular: Rate and Rhythm: Normal rate and regular rhythm. Pulses: Normal pulses. Heart sounds: Normal heart sounds. Pulmonary: Effort: Pulmonary effort is normal. Breath sounds: Normal breath sounds. Abdominal: General: Bowel sounds are normal. Palpations: Abdomen is soft. Comments: Drin tube in situ, dressing dry Musculoskeletal: General: Normal range of motion. Cervical back: Normal range of motion and neck supple. Skin: General: Skin is warm. Capillary Refill: Capillary refill takes less than 2 seconds. Neurological: General: No focal deficit present. Mental Status: He is alert and oriented to person, place, and time. Mental status is at baseline. Physical Exam There is no swelling in the legs. LABS: Appointment on 03/04/2024 Component Date Value Ref Range Status Sodium 03/04/2024 140 133 - 145 mmol/L Final Potassium 03/04/2024 4.4 3.5 - 5.5 mmol/L Final Chloride 03/04/2024 108 96 - 110 mmol/L Final CO2 03/04/2024 28 21 - 32 mmol/L Final Anion Gap 03/04/2024 4 3 - 11 Final Glucose 03/04/2024 95 70 - 100 mg/dL Final BUN 03/04/2024 13 5 - 25 mg/dL Final Creatinine 03/04/2024 1.25 0.70 - 1.30 mg/dL Final eGFR 03/04/2024 66 >=60 mL/min/1.73m2 Final BUN/Creatinine Ratio 03/04/2024 10.4 Final Calcium 03/04/2024 9.5 8.5 - 10.5 mg/dL Final AST (SGOT) 03/04/2024 14 10 - 42 unit/L Final ALT (SGPT) 03/04/2024 20 10 - 60 unit/L Final Alkaline Phosphatase 03/04/2024 79 42 - 121 unit/L Final Total Protein 03/04/2024 7.6 6.0 - 8.0 g/dL Final Albumin 03/04/2024 3.6 3.2 - 5.0 g/dL Final Total Bilirubin 03/04/2024 0.2 0.0 - 1.4 mg/dL Final Hemoglobin A1C 03/04/2024 6.0 <6.5 % Final Mean Bld Glu Estim. 03/04/2024 126 mg/dL Final Magnesium 03/04/2024 1.8 (L) 1.9 - 2.6 mg/dL Final WBC 03/04/2024 7.5 4.8 - 10.8 K/mcL Final RBC 03/04/2024 4.00 (L) 4.50 - 5.50 M/mcL Final Hemoglobin 03/04/2024 10.5 (L) 13.5 - 17.5 g/dL Final Hematocrit 03/04/2024 34.4 (L) 42.0 - 54.0 % Final MCV 03/04/2024 86.9 79.0 - 98.0 FL Final MCH 03/04/2024 26.5 (L) 27.0 - 32.0 pcg Final MCHC 03/04/2024 30.5 (L) 32.0 - 37.0 g/dL Final RDW 03/04/2024 14.8 11.0 - 15.0 % Final Platelets 03/04/2024 275 130 - 400 K/mcL Final MPV 03/04/2024 10.2 7.0 - 11.0 FL Final NRBC 03/04/2024 0.0 <1.0 % Final NRBC Absolute 03/04/2024 0.00 <0.10 K/mcL Final Neutrophils Relative 03/04/2024 51.8 % Final Lymphocytes Relative 03/04/2024 39.1 % Final Monocytes Relative 03/04/2024 5.5 % Final Eosinophils Relative 03/04/2024 2.8 % Final Basophils Relative 03/04/2024 0.5 % Final Immature Granulocytes Relative 03/04/2024 0.3 % Final Neutrophils Absolute 03/04/2024 3.89 1.50 - 7.00 K/mcL Final Lymphocytes Absolute 03/04/2024 2.94 1.00 - 5.00 K/mcL Final Monocytes Absolute 03/04/2024 0.41 0.20 - 1.00 K/mcL Final Eosinophils Absolute 03/04/2024 0.21 0.00 - 0.50 K/mcL Final Basophils Absolute 03/04/2024 0.04 0.00 - 0.20 K/mcL Final Immature Granulocytes Absolute 03/04/2024 0.02 0.00 - 0.03 K/mcL Final Abstract on 01/19/2024 Component Date Value Ref Range Status Gonorrhea/Chlamydia Screening 07/11/2023 Abstracted Final HM Hepatitis C Screening 07/11/2023 Abstracted Final HIV Screening 07/11/2023 Abstracted Final Annual BMP Blood Test 07/11/2023 Abstracted Final HM Urine Albumin Creatinine Ratio 10/09/2023 Abstracted Final LDL/HDL Ratio 07/11/2023 6 (A) 0 - 4 Final Triglycerides 07/11/2023 116 0 - 150 mg/dL Final Cholesterol 07/11/2023 200 0 - 200 mg/dL Final HDL 07/11/2023 32 (A) 40 mg/dL Final LDL Cholesterol 07/11/2023 145 (A) 0 - 100 mg/dL Final Hemoglobin A1C 10/09/2023 9.8 (A) 6.5 % Final Results Laboratory Studies Hemoglobin is low. IMPRESSION: 1. Encounter for annual physical exam 2. Type 2 diabetes mellitus with other diabetic kidney complication, without long-term current use of insulin ([facility]) 3. Type 2 diabetes mellitus without complication, without long-term current use of insulin ([facility]) 4. Acute cholecystitis 5. Anemia, unspecified type 6. Tobacco dependency PLAN: Encounter for annual physical exam (Primary) - Ambulatory referral to Gastroenterology; Future Type 2 diabetes mellitus with other diabetic kidney complication, without long- term current use of insulin ([facility]) Type 2 diabetes mellitus without complication, without long-term current use of insulin ([facility]) Acute cholecystitis Anemia, unspecified type Tobacco dependency - nicotine (NICODERM CQ) 14 mg/24 hr; Place 1 patch on the skin 1 (one) time each day at the same time. Dispense: 30 each; Refill: 0 - Ambulatory referral to Thoracic Surgery; Future Other orders - ferrous sulfate 325 mg (65 mg iron) EC tablet; Take 1 tablet (325 mg total) by mouth 1 (one) timeeach day with breakfast. Do not crush, chew, or split. Dispense: 90 each; Refill: 3 - ascorbic acid (VITAMIN C) 250 mg tablet; Take 1 tablet (250 mg total) by mouth 1 (one) time each day. Dispense: 90 each; Refill: 3 - nicotine polacrilex (NICORETTE) 4 mg gum; Place 1 each (4 mg total) into mouth between cheek and gum if needed for smoking cessation. Dispense: 100 each; Refill: 3 Assessment & Plan 1. Cholecystitis - Scheduled for laparoscopic cholecystectomy due to cholecystitis and recent sepsis. -There is a drain tube in situ and bile present over there. - Postoperative follow-up with surgeon on 04/26/2024 - Bring all hospital paperwork to next visit 2. Diabetes Mellitus - Well-controlled as of last blood work on March 04, 2024 - Continue taking Jardiance 10 mg and metformin - No additional blood tests required today 3. Hypertension - Currently taking lisinopril - Continue to monitor blood pressure 4. Magnesium Deficiency - Taking magnesium supplements due to previously low levels - Repeat lab work to monitor magnesium levels 5. Anemia - Low hemoglobin levels noted in February 2024 - Prescribed iron tablets to be taken daily with food to avoid constipation - Prescribed vitamin C to enhance iron absorption 6. Smoking Cessation - Provided with nicotine patch and gummies to aid in smoking cessation - Referral for lung cancer screening made 7. Health Maintenance - Due for several vaccines: COVID-19 booster, influenza, pneumonia, shingles,RSV, and tetanus - Influenza and pneumonia vaccines can be administered today if he consents - Advised to maintain a healthy diet, cease smoking, wear appropriate clothing and sunscreen when exposed to direct sunlight, undergo annual eye and dental examinations, use seatbelts while driving, and perform self-examinations of his testicles - Does not feel STD testing is necessary as he has only one partner 8. Colon Cancer Screening - Referral for colonoscopy made Follow-up - Follow up after the surgery for hospital admission or as needed. Genetic cancer syndrome screening: NA Glaucoma screening regularly I offered STD testing to the patient, Declined Discussed healthy dietary choices. Discussed increasing dietary fiber through fruits, veggies, whole grains. Advised the patient to exercise 30mins a day most days of the week. Advised patient to see a dentist at least yearly. Advised patient to use sunscreen, hats, clothing while outdoors in direct sunlight. Advised patient to wear a seatbelt while in the car. Advised the patient to check smoke/fire alarms at home regularly. Testicular self exams regularly for testicular cancer screening. Discussed safe sex practices I have reviewed the following sections of the chart: Past Medical History Family History Social History All the history reviewed, counseling done. All the questions and concerns were answered. Advised the patient to call me if any problems. Patient understands the plan. Patient is in agreement with the plan. I have obtained verbal consent from Vivek Watts prior to the recording. I have advised Vivek Watts that he may refuse the recording and require the recording to be turned off at any time during this encounter. David Perez MD on 04/14/2024 at 5:28 PM ESTTobacco Counseling The patient smokes cigarettes and desires to quit. We created the following quit plan: documented in this encounter Plan of Treatment Upcoming Encounters Date Type Department Care Team (Late st Contact Info) Description 04/27/2024 3:45 PM EST Office Visit Internal Medicine - [place] [address] [address] David Perez MD 175 [facility] [address] [place] [address] 05/18/2024 2:00 PM EST Clinical Support Lung Screening Program - [place] [address] [facility] [address] [place] [address] 05/18/2024 2:15 PM EST Appointment [facility] CT Scan [address] [place] [id number] 08/19/2024 3:30 PM EDT Appointment [facility] Endoscopy [address] [place] [phone] Eulalia Vargas MD [address] [address] Scheduled Referrals Name Type Priority Associated Diagnoses Order Schedule Ambulatory referral to Thoracic Surgery Outpatient Referral Routine Tobacco dependency Expected: 04/28/2024, Expires: 04/14/2025 Ambulatory referral to Gastroenterology Outpatient Referral Routine Encounter for annual physical exam 1 Occurrences starting 04/14/2024 until 04/14/2025 documented as of this encounter Visit Diagnoses Diagnosis Encounter for annual physical exam- Primary Type 2 diabetes mellitus with other diabetic kidney complication, without long- term current use of insulin ([facility]) Type 2 diabetes mellitus without complication, without long-term current use of insulin ([facility]) Acute cholecystitis Anemia, unspecified type Tobacco dependency Tobacco use disorder documented in this encounter Historical Medications * This list may reflect changes made after this encounter. Medication Sig Dispensed Refills Start Date End Date lisinopriL (PRINIVIL,ZESTRIL) 5 mg tablet Take 1 tablet (5 mg total) by mouth 1 (one) time each day. 03/11/2024 added in this encounter Care Teams Logger All Round Relationship Specialty Start Date End Date David Perez MD [address] [place] [address] PCP - General 05/07/23 documented as of this encounter
--- OUTSIDE RECORDS SUMMARY | 2024-04-26 13:57 | XMS_ITS | Encounter Summary ---
Author Organization [facility] Address [address] [place] [address] Care Team Providers Care Mate Fishing Vessel Name Role Phone David Perez MD Primary Care Provider [phone] Encounter Details Date Type Department Care Team ([facility] Contact Info) Description 03/04/2024 Telephone Internal Medicine - [place] [address] [phone] David Perez MD [address] [address] Social History Tobacco Use Types Packs/Day Years [...] on file documented as of this encounter Plan of Treatment Upcoming Encounters Date Type Department Care Team ([facility] Contact Info) Description 04/27/2024 3:45 PM EST Office Visit Internal Medicine - [place] 175 [facility] [address] [place] [phone] David Perez MD 175 [facility] [address] [place] [address] 05/18/2024 2:00 PM EST Clinical Support Lung Screening Program - [place] 299 [facility] [address] [place] [phone] 05/18/2024 2:15 PM EST Appointment [facility] CT Scan [address] [place] [phone] 08/19/2024 3:30 PM EDT Appointment [facility] Endoscopy [address] [place] [phone] Eulalia Vargas MD [address] [address] documented as of this encounter Visit Diagnoses Not on filedocumented in this encounter Care Teams Mate Fishing Vessel Relationship Specialty Start Date End Date David Perez MD [address] [address] PCP - General 05/07/23 documented as of this encounter
== END 2024-04-26 09:53 | disposition home or self-care (01) ==
PROVIDERS: PCP Student in an Organized Health Care Education/Training Program; Visit Provider Surgery
DX: Z90.49 Acquired absence of other specified parts of digestive tract (principal)
CPT/HCPCS: 99024

== ENCOUNTER → 2024-04-26 09:35 | Outpatient (BNVA) | payer OTHER, SELFPAY | PROVIDERS: PCP Student in an Organized Health Care Education/Training Program; Visit Provider Surgery | DX: Z09 Encounter for follow-up examination after completed treatment for conditions other than malignant neoplasm (principal); Z90.49 Acquired absence of other specified parts of digestive tract | CPT/HCPCS: 99212 ==

== ENCOUNTER 2024-06-08 14:03 | Outpatient (AMB) | payer OTHER, SELFPAY ==
[2024-06-08 14:09] VITALS: BP 110/68; PULSE 84; O2SAT 97; BMI 21.0
--- NOTE | 2024-06-08 14:09 | HO.NEPHOV_ITS ---
Vital Signs 06/08/24 14:09 Height 5 ft 9 in Weight 142 lb BMI 21.0 BP 110/68 Blood Pressure Location Rt brachial Position Sitting Pulse 84 Pulse Source Pulse Oximeter Pulse Oximetry (%) 97 Oxygen Delivery Method Room Air Intake Visit Reasons: ALEC/ Conf Digital Community Manager Required: Yes Digital Community Manager Services: Digital Community Manager Present Accompanied by: Heathcare Worker Allergies No Known Allergies Allergy (Verified 04/26/24 09:44) Medication List - Last Reconciled 06/08/24 by Chi Jacob MD acetaminophen 1,000 mg (2 x 500 mg) PO Q8H PRN ascorbic acid (vitamin C) 250 mg PO DAILY empagliflozin (Jardiance) 10 mg PO QAM ferrous sulfate 325 mg PO DAILY ibuprofen 800 mg PO Q8H PRN metformin ER 1,000 mg PO BID nicotine topical DAILY nicotine (polacrilex) mg PO PRN HPI Comments Details: 63 y/o male (primary language is Irish 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 He was recently hospitalized on 01/12 for septic shock (source thought to be secondary to acalculous cholecysits). He required ICU care and vasopressor support, s/p cholecystostomy tube placement; had ALEC likely tubular injury secondary to hypoperfusion from septic shock. Seen for hospital follow up on 02/10/24, here for 1 month return. smokin-3 cigarettes in a day, used to be much heavier per pt. working on cutting down. alcohol: none family hx: patient denies known personal or family history of kidney disease denies other known medical history outside of diabetes (was on metformin, jardiance outpatient) medications: metformin 1000mg BID, jardiance 10mg daily. Providers: PCP: recently saw PCP at [facility], Dr Autumn Ayala. Specialists: reports sees software computer specialist, was referred by PCP; he is unsure of name/site. Imagin/18 CT abd/pelvis: CT abdomen/pelvis on 01/12 showed questionable pyelonephritis with possible right-sided atelectasis versus small abscess repeat abd CT from 01/15 showed striated parenchymal pattern probably related to prior IV contrast and ATN; superimposed pyelonephritis cannot be confirmed or excluded. Question mild fullness of right renal collecting system, unchanged compared to 3 days prior. Left renal collecting system appears unremarkable. No hydrouereter or calculi seen. Creatinine trend: baseline creatinine 1.10 on 07/31/23, GFR >60 01/12 Creatinine 2.54, 1.66 on 01/15 discharge 02/10/24 creatinine 1.16, GFR>60 Urine: 02/10/24 no blood, trace protein, WBCs. urine protein/creatinine ratio 02/09/14 0.43 diet, salt: working on this sugars: trying to work on this NSIADs/OTC medications: None no shortness of breath no edema no urinary symptoms no rash no joint pain, with exception of bilateral knees, chronic/intermittent had reported poor appetite last visit, states this has resolved and he is feeling well. [facility] Medical History (Updated 06/08/24 @ 14:16 by Chi Jacob MD) Language barrier Diabetes FH: cholecystectomy (~12/2023) ALEC (acute kidney injury) Surgical History H/O insertion of cholecystostomy tube Social History Household Members: Family Household Members Other:: , 6 children Housing: House Are you a primary personal caregiver to a significant other at home: No Do you presently have visiting nurse or other home services: No Patient Tobacco Use Status: Current everyday Tobacco user Tobacco use type: Cigarette Cigarettes Per Day: 4 Years Smoked: 30 service: No Physical Exam Vital Signs: Last Vital Signs Pulse 84 06/08/24 14:09 BP 110/68 06/08/24 14:09 Pulse Ox 97 06/08/24 14:09 Oxygen Delivery Method Room Air 06/08/24 14:09 BMI result Body Mass Index 21.0 Const General: healthy appearing, no acute distress, alert and awake Neck Neck: Yes no JVD Thyroid: Thyroid normal Resp Effort & Inspection: normal respiratory effort and able to speak in complete sentences Auscultation: clear to auscultation bilaterally Cardio Jugular venous distension: no JVD Rate: regular rate Rhythm: regular rhythm Heart sounds: S1 normal heart sound present, S2 normal heart sound present and no murmurs GI Other: right abdominal drain in place. Palpation (GI): Soft to palpation and nontender General: Yes no CVA tenderness Back/Spine/Pelvis Back: no CVA tenderness Skin Lesions: no lesions Rashes: no rashes Extrem General: No edema and No pedal edema Results Reviewed Nephrology Results: Hgb 11.5 g/dl (14.0-18.0) L 04/08/24 WBC 7.6 X10*3/uL (4.8-10.8) 04/08/24 Plt Count 191 X10*3/uL (160-400) 04/08/24 Sodium 140 mmol/L (135-145) 04/08/24 Potassium 4.5 mmol/L (3.3-5.1) 04/08/24 Chloride 106 mmol/L (96-108) 04/08/24 Carbon Dioxide 28 mmol/L (22-29) 04/08/24 BUN 12 mg/dL (9-16) 04/08/24 Creatinine 1.29 mg/dL (0.5-1.4) 04/08/24 Calcium 9.3 mg/dL (8.4-10.2) 04/08/24 Urine Creatinine 82.42 mg/dL 04/06/24 Protein/Creatinin Ratio 0.13 (<0.2) 04/06/24 Assessment & Plan Assessment & Plan (1) ALEC (acute kidney injury): Comment: due to septic shock 12/2023-bacteremia, acalculous cholecystitis-drain in place Code(s): N17.9 - Acute kidney failure, unspecified Category: Medical (2) Proteinuria: Code(s): R80.9 - Proteinuria, unspecified Category: Medical Qualifiers: Proteinuria type: persistent Qualified Code(s): R80.1 - Persistent proteinuria, unspecified Plan ALEC secondary to tubular injury from hypoperfusion secondary to septic shock in December ALEC resolved Underlying CKD - underlying diabetic kidney disease. Recent creatinine was 1.29 which is probably his baseline Persistent proteinuria- urine protein/creatinine ratio 0.43 most likely secondary to diabetic nephropathy Would benefit from JOSIAH inhibitors and SGLT2 inhibitors. REsume Lisinopril 5mg daily Blood pressure is well controlled I advised healthy diet for diabetic control, may continue current medication regimen for now advised low salt diet and advised regular exercise Orders: Orders Basic Metabolic Panel 6 Months N18.9 - Chronic kidney disease, unspecified, R80.1 - Persistent proteinuria, unspecified Total Protein Urine Random 6 Months N18.9 - Chronic kidney disease, unspecified, R80.1 - Persistent proteinuria, unspecified Creatinine Urine 6 Months N18.9 - Chronic kidney disease, unspecified, R80.1 - Persistent proteinuria, unspecified UA and rflx microscopic 6 Months N18.9 - Chronic kidney disease, unspecified, R80.1 - Persistent proteinuria, unspecified Medications: New lisinopril 5 mg PO DAILY 90 tabs 1RF Coding Level of Care Code Est Pt Level 4 (87436) Diagnoses ALEC (acute kidney injury) N17.9 Persistent proteinuria R80.1 Proteinuria type: persistent
--- OUTSIDE RECORDS SUMMARY | 2024-06-08 17:11 | XMS_ITS | Encounter Summary ---
Author Organization [facility] Address [address] [place] [address] Care Team Providers Care B2B Outside Sales Representative Name Role Phone David Perez MD Primary Care Provider [phone] Reason for Visit * Reason Comments SDMV * Consultation (Routine) - Closed Specialty Diagnoses / Procedures Referred By Crescencio alamo Referred To Contact Thoracic Surgery Diagnoses Tobacco dependency David Perez MD 175 [facility] [address] [place] [address] Phone: tel: fax: Lung Screening Program - [address] [address] Phone: tel: fax: Referral ID Status Reason Start Date Expiration Date V isits Requested Visits Authorized [id number] Closed Specialty Services Required 04/14/2024 04/14/2025 1 1 Encounter Details Date Type Department Care Team (Late st Contact Info) Description 05/18/2024 2:00 PM EST Office Visit Lung Screening Program - [address] [phone] Zehra Epstein NP [address] [address] Encounter for screening for malignant neoplasm of lung in current smoker with 30 pack year history or greater (Primary Dx); Tobacco dependency Social History Tobacco Use Types Packs/Day Years Used Date Smoking Tobacco: Every Day Cigarettes 1.5 39.2 Started: 1985 Tobacco Cessation:Ready to Q uit: Not Asked; Counseling Given: Not Answered Alcohol Use Standard Drinks/Week Comments Not Currently 0 (1 standard drink = 0.6 oz pur e alcohol) Sex and Gender Information Value Date Recorded Sex Assigned at Male 05/18/2024 2:29 PM EST Legal Sex Male 11:06 AM EDT Gender Identity Male 05/18/2024 2:29 PM EST Sexual Orientation Straight 05/18/2024 2: 29 PM EST documented as of this encounter Last Filed Vital Signs Vital Sign Reading Time Taken Comments Blood Pressure - - Pulse - - Temperature 36.3 ??C (97.3 ??F) 05/18/2024 2:04 PM ES T Respiratory Rate - - Oxygen Saturation - - Inhaled Oxygen Concentration - - Weight - - Height - - Body Mass Index - - documented in this encounter Progress Notes * Zehra Epstein NP - 05/18/2024 2:00 PM EST Images from the original note were not included. Lung Cancer Screening Program Shared Decision Making Visit Patient name: Vivek Watts : 1960 Date of Visit: 05/18/2024 Care Team Referring Provider: David Perez MD PCP: David Perez MD History of Present Illness Mr. Watts is a 63 y.o. male who patient presents to the Lung Cancer Screening Program at [facility] for his Shared Decision Making visit. At time of this visit the patient denies any signs or symptoms concerning for active lung cancer including new or worsening cough, hemoptysis, significant chest pain, significant dyspnea, or unintentional weight loss. He denies any recent respiratory illnesses or hospitalizations for a respiratory illness. He denies any CT scan of the chest in the past year. Past Medical History: Diagnosis Date Anemia, unspecified Cholecystitis 01/15/2024 Chronic midline low back pain without sciatica Hypertension Septicemia due to Escherichia coli (E. coli) ([facility]CC) Type 2 diabetes mellitus without complication ([facility]/HCC) Patient Active Problem List Diagnosis T2DM (type 2 diabetes mellitus) ([facility]/HCC) Chronic midline low back pain without sciatica Septicemia due to Escherichia coli (E. coli)(038.42) ([facility]) Acute cholecystitis Encounter for change or removal of drains Encounter for change or removal of surgical wound dressing Type 2 diabetes mellitus without complications ([facility]) Anemia, unspecified History of cholecystectomy No Known Allergies Current Outpatient Medications Medication Sig Dispense Refill ascorbic acid (VITAMIN C) 250 mg tablet Take 1 tablet (250 mg total) by mouth 1 (one) time each day. 90 each 3 blood sugar diagnostic (FreeStyle Lite Strips) test strip 1 each by Other route 1 (one) time each day. Use to test blood sugar daily 100 each 1 blood-glucose meter kit 1 Device by Not Applicable route 1 (one) time each day. empagliflozin (Jardiance) 10 mg tablet Take 1 tablet (10 mg total) by mouth 1 (one) time each day in the morning. ferrous sulfate 325 mg (65 mg iron) EC tablet Take 1 tablet (325 mg total) by mouth 1 (one) time each day with breakfast. Do not crush, chew, or split. 90 each 3 FREESTYLE LANCETS MISC 1 Device by Not [...] a day. Change in formulation and directions nicotine (NICODERM CQ) 14 mg/[address] 1 patch on the skin 1 (one) time each day at the same time. 30 each 0 nicotine polacrilex (NICORETTE) [address] 1 each (4 mg total) into mouth between cheek and gumif needed for smoking cessation. 100 each 3 No current facility-administered medications for this visit. Social History Tobacco Use Smoking status: Every Day Current packs/day: 1.50 Average packs/day: 1.5 packs/day for 39.1 years (58.7 ttl pk-yrs) Types: Cigarettes Start date: 1985 Vaping Use Vaping status: Never Used Substance Use Topics Alcohol use: Not Currently Drug use: Never Social History Social History Narrative He is living in a hotel subsidized by [facility]. [facility] [place]. He has 5 children (minors) 3 of his older children were not permitted to stay with them in the hotel. Stomach pain every night. He thinks it may be due to malnutrition and hunger pains because he is unable to attain sufficient food while he is staying in the hotel. 2024: lives with and 6 kids. Work no, exercise no, no pet. Family History Problem Relation Name Age of Onset Diabetes Maternal Grandmother Exposure History Patient denies any significant exposure history Physical Exam Physical Exam Constitutional: Appearance: Normal appearance. HENT: Head: Normocephalic and atraumatic. Eyes: General: Scleral icterus present. Neurological: General: No focal deficit present. Mental Status: He is alert and oriented to person, place, and time. Psychiatric: Mood and Affect: Mood normal. Behavior: Behavior normal. Assessment and Plan: Mr. Watts is a 63 y.o. male, current smoker, with a 58 pack-year total. The patient was determined to be eligible for LDCT scan given their age, tobacco history, and current asymptomatic state of health. All of the patient's questions were answered and understood at time of this visit. The patient wishes to proceed with Lung Cancer Screening at [facility]. Sudanese/makiole interpretor at patient side. The patient will be having their first LDCT today following this visit. Please be aware that primary care physicians are responsible for all incidental findings that may be found on screening LDCT scans. Patient Information / Education The benefits and risks of lung cancer screening were discussed with the patient including but not limited to oncology outcomes, false-positives/negatives, over- diagnosis, potential need for further testing and/or procedures, incidental findings, and radiation exposure. The patient was educated on the potential management decisions for suspicious findings potentially found on the screening LDCT scans. Any patient with a Lung- RADS score 4 will be reviewed by a multidisciplinary team at [facility] to form a plan of action in regards to the specific suspicious finding. If any further work-up is warranted for a suspicious lung nodule finding this will be followed up by the our program in conjunction with the Thoracic Surgery office at [facility]. The patient, referring physician, and primary care physician will be notified of the LDCT scan results and associated plan. Patient educated that their primary care physician will be responsible for all incidental findings found on screening LDCT scans. Patient educated on the importance of adherence to their personalized lung cancer-screening regimen. Smoking Cessation Smoking cessation resources were made available to patient during this visit. Zehra Epstein NP [facility] Lung Cancer Screening Program [address] [facility] [address] [facility] [phone] documented in this encounter Plan of Treatment Upcoming Encounters Date Type Department Care Team (Late st Contact Info) Description 08/19/2024 3:30 PM EDT Appointment [facility] Endoscopy [address] [place] [phone] Eulalia Vargas MD [address] [address] 10/27/2024 11:30 AM EDT Office Visit Internal Medicine - [place] [address] [phone] David Perez MD [address] [address] documented as of this encounter Visit Diagnoses Diagnosis Encounter for screening for malignant neoplasm of lung in current smoker with 30 pack year history or greater- Primary Tobacco dependency Tobacco use disorder documented in this encounter Orders Outpatient Referral Count Last Ordered Date Fir st Ordered Date AMB REFERRAL TO THORACIC SURGERY 1 05/21/19 documented in this encounter Care Teams B2B Outside Sales Representative Relationship Specialty Start Date End Date David Perez MD [address] [address] PCP - General 05/07/23 documented as of this encounter
--- OUTSIDE RECORDS SUMMARY | 2024-06-08 17:11 | XMS_ITS ---
Author Organization [address] Address [address] [place] [phone] Phone Care Team Providers Care Cloth Shearing Supervisor Name Role Phone David Perez MD Primary Care Provider [phone] Community Health Worker Program Status:Ongoing (Active) Start date:08/19/2023 Enrollment date:04/14/2024 Enrollment reason:Identified as high-risk Current support & services provided:Adult Overview Community Health Worker Program Case Team Name Relationship Phone Ephraim Mack Community Health Worker(Respons ible Staff) Continued Care and Services Coordination
--- OUTSIDE RECORDS SUMMARY | 2024-06-08 17:11 | XMS_ITS | Encounter Summary ---
Author Organization [facility] Address [address] [place] [address] Care Team Providers Care Safety Consultant Name Role Phone David Perez MD Primary Care Provider [phone] Reason for Referral * Imaging (Routine) - Closed Specialty Diagnoses / Procedures Referred By Cresecncio alamo Referred To Contact Radiology Diagnoses Encounter for screening for lung cancer Cigarette smoker Procedures CT Lung Screening Ariana Song MD [address] [address] Phone: tel: fax: [facility] [address] [place] [address] Phone: tel: Referral ID Status Reason Start Date Expiration Date Visits Re quested Visits Authorized [id number] Closed 04/19/2024 04/19/2025 1 1 Reason for Visit * Auth/Cert (Routine) Specialty Diagnoses / Procedures Referred By Crescencio alamo Referred To Contact Diagnoses Nicotine dependence, cigarettes, uncomplicated Procedures NE CT THORAX LOW DOSE FOR LUNG CANCER SCREENING W/O CONTRAST MATERIAL [facility] CT Scan [address] [place] [address] Phone: tel: Referral ID Status Reason Start Date Expiration Date Visits Re quested Visits Authorized [id number] 1 1 Encounter Details Date Type Department Care Team (Latest Contact Info) Description 05/18/2024 2:15 PM EST - 05/18/2024 11:59 PM EST Hospital Encounter [facility] CT Scan [address] [place] [address] Encounter for screening for lung cancer; Cigarette smoker Discharge Disposition: Home or Self Care Social History Tobacco Use Types Packs/Day Years Used Date Smoking Tobacco: Every Day Cigarettes 1.5 39.2 Started: 1985 Alcohol Use Standard Drinks/Week Comments Not Currently 0 (1 standard drink = 0.6 oz pur e alcohol) Sex and Gender Information Value Date Recorded Sex Assigned at Male 05/18/2024 2:29 PM EST Legal Sex Male 11:06 AM EDT Gender Identity Male 05/18/2024 2:29 PM EST Sexual Orientation Straight 05/18/2024 2: 29 PM EST documented as of this encounter Medications at Time of Discharge ascorbic acid (VITAMIN C) 250 mg tablet Take 1 tablet (250 mg total) by mouth 1 (one) time each day. 90 each 3 04/14/2024 6 blood sugar diagnostic (FreeStyle Lite Strips) test strip 1 each by Other route 1 (one) time each day. Use to test blood sugar daily 100 each 1 02/24/2024 blood-glucose meter kit 1 Device by Not Applicable route 1 (one) time each day. 08/06/2023 empagliflozin (Jardiance) 10 mg tablet Take 1 tablet (10 mg total) by mouth 1 (one) time each day in the morning. 01/07/2024 ferrous sulfate 325 mg (65 mg iron) EC tablet Take 1 tablet (325 mg total) by mouth 1 (one) time each day with breakfast. Do not crush, chew, or split. 90 each 3 04/14/2024 6 FREESTYLE LANCETS MISC 1 Device by Not Applicable route 1 (one) time each day. 08/06/2023 lactose-reduced food (BOOST ORAL) Take 1 Bottle by mouth 1 (one) time each day. 07/09/2023 lisinopriL (PRINIVIL,ZESTRI L) 5 mg tablet Take 1 tablet (5 mg total) by mouth 1 (one) time each day. 03/11/2024 magnesium 250 mg tabletIndication s:Hypomagnesemia Take 1 tablet by mouth at bedtime. 90 tablet 3 03/10/2024 metFORMIN XR (GLUCOPHAGE-XR) 500 mg 24 hr tablet Take 2 tablets (1,000 mg total) by mouth 2 (two) times a day. Change in formulation and directions 01/07/2024 nicotine polacrilex (NICORETTE) [address] 1 each (4 mg total) into mouth between cheek and gum if needed for smoking cessation. 100 each 3 04/14/2024 5 documented as of this encounter Discharge Disposition Disposition Code Departure Means Destination Home or Self Care documented in this encounter Plan of Treatment Upcoming Encounters Date Type Department Care Team (Late st Contact Info) Description 08/19/2024 3:[address] [facility] Endoscopy [address] [place] [address] Eulalia Vargas MD [address] [address] 10/27/2024 11:30 AM EDT Office Visit Internal Medicine - [place] [address] [phone] David Perez MD [address] [address] documented as of this encounter Procedures Procedure Name Priority Date/Time Associated Diagnosis Comments CT LUNG SCREENING Routine 05/18/2024 2:4 3 PM EST Encounter for screening for lung cancer Cigarette smoker documented in this encounter Results * CT Lung Screening (05/18/2024 2:43 PM EST) Anatomical Region Laterality Modality Chest Computed Tomogra phy 05/23/2024 2:37 PM EST Impressions 05/23/2024 2:40 PM EST No suspicious findings ASSESSMENT: LungRADS Category1: Negative - Continue annual screening with LDCT in 12 months Please see below for additional details of LungRADS Algorithm. Complete Lung RADS description including probabilities of malignancy and prevalence can be found at: http://www.acr.org/Quality-Safety/Resources/LungRADS LungRADS Version 1.0 Assessment Categories Release date: July 26, 2013 Category 0: Incomplete - Additional lung cancer screening CT images and/or comparison with prior CT is needed. - Prior chest CT(s) being located for comparison. - Part or all of the lungs cannot be evaluated. Category 1: Negative - Continue annual screening with LDCT in 12 months - No lung nodules - Nodule(s) with specific calcifications (complete, central, popcorn, concentric rings) and fat containing nodules Category 2: Benign Appearance/Behavior - Continue annual screening with LDCT in 12 months - Solid nodule < 6 mm or new solid nodule < 4 mm. - Part solid nodule(s) < 6 mm total diameter on baseline screening. - Ground glass nodule < 20 mm or ? 20 mm and unchanged or slowly growing. - Category 3 or 4 nodules unchanged for at least 3 months. Category 3: Probably Benign - 6 month LDCT - Solid nodule(s) ? 6 to < 8 mm at baseline OR new 4 mm to < 6 mm. - Part solid nodule(s) ? 6 mm total diameter with solid component < 6 mm OR new < 6 mm total diameter. - Ground glass nodule ? [address] or new. Category 4A: Suspicious - 3 month LDCT; PET/CT may be used when there is ? 8 mm solid component - Solid nodule(s) ? 8 to < 15 mm at baseline OR growing < 8 mm OR new 6 to < 8 mm. - Part solid nodule(s) ? 6 mm with solid component ? 6 mm to < 8 mm OR with a new or growing < 4 mm solid component. - Endobronchial nodule. Category 4B: Suspicious - Chest CT with or without contrast, PET/CT and/or tissue sampling depending on the probability of malignancy and comorbidities. PET/CT may be used when there is a ? 8 mm solid component. - Solid nodule(s) ? 15 mm OR new or growing and ? 8 mm - Part solid nodule(s) with a solid component ? 8 mm OR a new or growing ? 4 mm solid component Category 4X: Suspicious - Chest CT with or without contrast, PET/CT and/or tissue sampling depending on the probability of malignancy and comorbidities. PET/CT may be used when there is a ? 8 mm solid component. - Category 3 or 4 nodules with additional features or imaging findings that increases the suspicion of malignancy. Category S: Clinically Significant or Potentially Clinically Significant Findings (non lung cancer) Category C: Modifier for patients with a prior diagnosis of lung cancer who return to screening NOTES: 1) Negative screen: does not mean that an individual does not have lung cancer. 2) Size: nodules should be measured on lung windows and reported as the average diameter rounded to the nearest whole number; for round nodules only a single diameter measurement is necessary. 3) Size Thresholds: apply to nodules at first detection, and that grow and reach a higher size category. 4) Growth: an increase in size of > 1.5 mm. 5) Exam Category: each exam should be coded 0-4 based on the nodule(s). 6) Exam Modifiers: S and C modifiers may be added to the 0-4 category. 7) Lung Cancer Diagnosis: Once a patient is diagnosed with lung cancer, further management (including additional imaging such as PET/CT) may be performed for purposes of lung cancer staging; this is no longer screening. 8) Practice audit definitions: a negative screen is defined as categories 1 and 2; a positive screen is defined as categories 3 and 4. 10) Category 4X: nodules with additional imaging findings that increase the suspicion of lung cancer, such as spiculation, GGN that doubles in size in 1 year, enlarged lymph nodes etc. 11) Nodules with features of an intrapulmonary lymph node should be managed by mean diameter and the 0-4 numerical category classification. 12) Category 3 and 4A nodules that are unchanged on interval CT should be coded as category 2, and individuals returned to screening in 12 months. 13) LDCT = low dose chest CT. -------- FINAL REPORT -------- Dictated By: Indigo Collier Dictated Date: 05/23/2024 14:37 ET Assigned Physician: Indigo Collier Reviewed and Electronically Signed By: Indigo Collier Signed Date: 05/23/2024 14:40 ET Workstation ID: [id number] Transcribed By: Self Edit Transcribed Date: 05/23/2024 14:37 ET Narrative 05/23/2024 2:40 PM EST History: ??63 year-old 58.5 pack-year current smoker, asymptomatic, for lung cancer screening. Comparison: None Technique: Helical volumetric imaging of the thorax was performed, using low- dose technique, without IV contrast. DLP: 102 mGy/cm CT dose reduction technique utilized with one or more of the following: Automated exposure control and/or adjustment of the mA and/or kV according to patient size and/or use of iterative reconstruction technique. Findings: Lungs: Granuloma left lung base. ??Mild atelectasis at the lung bases. ??There is no suspicious pulmonary nodule evident on the current examination. ??Minimal emphysematous changes. Pleura: There are no pleural effusions. ??No calcified or noncalcified pleural plaques. Heart/Aorta: The heart is normal in size. ??There is no pericardial effusion. Esophagus: The esophagus is not significantly thickened or dilated. ?? Lymph Nodes:There are no enlarged thoracic lymph nodes. ?? Upper Abdomen: This study was performed without contrast and with lower than standard dose. These factors reduce the sensitivity for detection of small lesions in the upper abdomen. Cholecystectomy clips. Osseous Structures: No suspicious osseous abnormalities. Procedure Note Indigo Collier MD - 05/23/2024 History: 63 year-old 58.5 pack-year current smoker, asymptomatic, forlung cancer screening. Comparison: None Technique: Helical volumetric imaging of the thorax was performed, usinglow-dose technique, without IV contrast. DLP: 102 mGy/cm CT dose reduction technique utilized with one or more of the following:Automated exposure control and/or adjustment of the mA and/or kV accordingto patient size and/or use of iterative reconstruction technique. Findings: Lungs: Granuloma left lung base. Mild atelectasis at the lung bases.There is no suspicious pulmonary nodule evident on the currentexamination. Minimal emphysematous changes. Pleura: There are no pleural effusions. No calcified or noncalcifiedpleural plaques. Heart/Aorta: The heart is normal in size. There is no pericardialeffusion. Esophagus: The esophagus is not significantly thickened or dilated. Lymph Nodes:There are no enlarged thoracic lymph nodes. Upper Abdomen: This study was performed without contrast and with lowerthan standard dose. These factors reduce the sensitivity for detection ofsmall lesions in the upper abdomen. Cholecystectomy clips. Osseous Structures: No suspicious osseous abnormalities. IMPRESSION: No suspicious findings ASSESSMENT: LungRADS Category1: Negative - Continue annual screening with LDCT in 12months Please see below for additional details of LungRADS Algorithm. CompleteLung RADS description including probabilities of malignancy and prevalencecan be found at: http://www.acr.org/Quality-Safety/Resources/LungRADS LungRADS Version 1.0 Assessment Categories Release date: July 26, 2013 Category 0: Incomplete - Additional lung cancer screening CT images and/orcomparison with prior CT is needed. - Prior chest CT(s) being located for comparison. - Part or all of the lungs cannot be evaluated. Category 1: Negative - Continue annual screening with LDCT in 12 months - No lung nodules - Nodule(s) with specific calcifications (complete, central, popcorn,concentric rings) and fat containing nodules Category 2: Benign Appearance/Behavior - Continue annual screening withLDCT in 12 months - Solid nodule < 6 mm or new solid nodule < 4 mm. - Part solid nodule(s) < 6 mm total diameter on baseline screening. - Ground glass nodule < 20 mm or ? 20 mm and unchanged or slowlygrowing. - Category 3 or 4 nodules unchanged for at least 3 months. Category 3: Probably Benign - 6 month LDCT - Solid nodule(s) ? 6 to < 8 mm at baseline OR new 4 mm to < 6 mm. - Part solid nodule(s) ? 6 mm total diameter with solid component < 6 mmOR new < 6 mm total diameter. - Ground glass nodule ? [address] or new. Category 4A: Suspicious - 3 month LDCT; PET/CT may be used when there is ?8 mm solid component - Solid nodule(s) ? 8 to < 15 mm at baseline OR growing < 8 mm OR new 6 to< 8 mm. - Part solid nodule(s) ? 6 mm with solid component ? 6 mm to < 8 mm ORwith a new or growing < 4 mm solid component. - Endobronchial nodule. Category 4B: Suspicious - Chest CT with or without contrast, PET/CT and/ortissue sampling depending on the probability of malignancy andcomorbidities. PET/CT may be used when there is a ? 8 mm solidcomponent. - Solid nodule(s) ? 15 mm OR new or growing and ? 8 mm - Part solid nodule(s) with a solid component ? 8 mm OR a new or growing ?4 mm solid component Category 4X: Suspicious - Chest CT with or without contrast, PET/CT and/ortissue sampling depending on the probability of malignancy andcomorbidities. PET/CT may be used when there is a ? 8 mm solidcomponent. - Category 3 or 4 nodules with additional features or imaging findingsthat increases the suspicion of malignancy. Category S: Clinically Significant or Potentially Clinically SignificantFindings (non lung cancer) Category C: Modifier for patients with a prior diagnosis of lung cancerwho return to screening NOTES: 1) Negative screen: does not mean that an individual does not have lungcancer. 2) Size: nodules should be measured on lung windows and reported as theaverage diameter rounded to the nearest whole number; for round nodulesonly a single diameter measurement is necessary. 3) Size Thresholds: apply to nodules at first detection, and that grow andreach a higher size category. 4) Growth: an increase in size of > 1.5 mm. 5) Exam Category: each exam should be coded 0-4 based on the nodule(s). 6) Exam Modifiers: S and C modifiers may be added to the 0-4 category. 7) Lung Cancer Diagnosis: Once a patient is diagnosed with lung cancer,further management (including additional imaging such as PET/CT) may beperformed for purposes of lung cancer staging; this is no longerscreening. 8) Practice audit definitions: a negative screen is defined as categories1 and 2; a positive screen is defined as categories 3 and 4. 10) Category 4X: nodules with additional imaging findings that increasethe suspicion of lung cancer, such as spiculation, GGN that doubles insize in 1 year, enlarged lymph nodes etc. 11) Nodules with features of an intrapulmonary lymph node should bemanaged by mean diameter and the 0-4 numerical category classification. 12) Category 3 and 4A nodules that are unchanged on interval CT should becoded as category 2, and individuals returned to screening in 12 months. 13) LDCT = low dose chest CT. -------- FINAL REPORT -------- Dictated By: Indigo Collier Dictated Date: 05/23/2024 14:37 ET Assigned Physician: Indigo Collier Reviewed and Electronically Signed By: Indigo Collier Signed Date: 05/23/2024 14:40 ET Workstation ID: [id number] Transcribed By: Self Edit Transcribed Date: 05/23/2024 14:37 ET Ariana Song MD IMG CT PROCEDURES Final Result documented in this encounter Visit Diagnoses Diagnosis Encounter for screening for lung cancer Cigarette smoker Tobacco use disorder documented in this encounter Care Teams Safety Consultant Relationship Specialty Start Date End Date David Perez MD [address] [place] [address] PCP - General 05/07/23 documented as of this encounter
--- OUTSIDE RECORDS SUMMARY | 2024-06-08 17:11 | XMS_ITS | Encounter Summary ---
Author Organization [facility] [place] [address] Care Team Providers Care Shovel Handle Assembler Name Role Phone David Perez MD Primary Care Provider [phone] Encounter Details Date Type Department Care Team (Late st Contact Info) Description 06/08/2024 Community Care Management [facility] [address] [place] [phone] David Perez MD 175 [facility] [address] [place] [address] Social History Tobacco Use Types Packs/Day Years [...] PM EST documented as of this encounter Progress Notes * Ephraim Frederick - 06/08/2024 3:37 PM EDT Outreached patient on 06/08/24 Reason For Visit: Nephrology Appt Outcome: CHW accompanied patient at appt for follow up Follow up plan: Will follow up in 6 months and accompany at next follow up [facility] documented in this encounter Plan of Treatment Upcoming Encounters Date Type Department Care Team (Late st Contact Info) Description 08/19/2024 3:30 PM EDT Appointment [facility] Endoscopy [address] [place] [address] Eulalia Vargas MD [address] [address] 10/27/2024 11:30 AM EDT Office Visit Internal Medicine - [place] [address] [phone] David Perez MD [address] [address] documented as of this encounter Visit Diagnoses Not on filedocumented in this encounter Care Teams Shovel Handle Assembler Relationship Specialty Start Date End Date David Perez MD [address] [address] PCP - General 05/07/23 documented as of this encounter
--- OUTSIDE RECORDS SUMMARY | 2024-06-08 17:11 | XMS_ITS | Clinical Summary ---
Author Organization [address] Address [address] [place] [phone] Phone Care Team Providers Care Counter Intelligence Technician Name Role Phone David Perez MD Primary Care Provider [phone] Allergies No known active allergies Medications blood-glucose meter kit 1 Device by Not Applicable route 1 (one) time each day. 4 Active FREESTYLE LANCETS MISC 1 Device by Not Applicable route 1 (one) time each day. 4 Active lactose-reduced food (BOOST ORAL) Take 1 Bottle by mouth 1 (one) time each day. 4 Active empagliflozin (Jardiance) 10 mg tablet Take 1 tablet (10 mg total) by mouth 1 (one) time each day in the morning. 4 Active metFORMIN XR (GLUCOPHAGE-XR) 500 mg 24 hr tablet Take 2 tablets (1,000 mg total) by mouth 2 (two) times a day. Change in formulation and directions 4 07/06/19 25 Active blood sugar diagnostic (FreeStyle Lite Strips) test strip 1 each by Other route 1 (one) time each day. Use to test blood sugar daily 100 each 1 4 Active magnesium 250 mg tabletIndicatio ns:Hypomagnesem ia Take 1 tablet by mouth at bedtime. 90 tablet 3 4 Active lisinopriL (PRINIVIL,ZESTR IL) 5 mg tablet Take 1 tablet (5 mg total) by mouth 1 (one) time each day. 4 Active ferrous sulfate 325 mg (65 mg iron) EC tablet Take 1 tablet (325 mg total) by mouth 1 (one) time each day with breakfast. Do not crush, chew, or split. 90 each 3 5 04/14/19 26 Active ascorbic acid (VITAMIN C) 250 mg tablet Take 1 tablet (250 mg total) by mouth 1 (one) time each day. 90 each 3 5 04/14/19 26 Active nicotine (NICODERM CQ) 14 mg/24 hrIndications:T obacco dependency Place 1 patch on the skin 1 (one) time each day at the same time. 30 each 5 Active nicotine polacrilex (NICORETTE) [address] 1 each (4 mg total) into mouth between cheek and gum if needed for smoking cessation. 100 each 3 5 07/14/19 25 Active Active Problems Problem Noted Date Diagnosed Date History of cholecystectomy 04/27/2024 Septicemia due to Escherichia coli (E. coli)(038 [...] Encounters Date Type Department Care Team Description 06/08/2024 [facility] [address] [place] [phone] David Perez MD 05/18/2024 2:15 PM EST - 05/18/2024 11:59 PM EST Hospital Encounter [facility] CT Scan [address] [place] [address] Encounter for screening for lung cancer; Cigarette smoker Discharge Disposition: Home or Self Care 05/18/2024 2:00 PM EST Office Visit Lung Screening Program - [facility] [address] [place] [phone] Zehra Epstein NP Encounter for screening for malignant neoplasm of lung in current smoker with 30 pack year history or greater (Primary Dx); Tobacco dependency 04/27/2024 3:45 PM EST Office Visit Internal [facility] 175 [facility] [address] [place] [address] David Perez MD Hospital discharge follow-up (Primary Dx); History of cholecystectomy 04/26/2024 [facility] Work[facility] [address] [place] [phone] Frederick, Ekellson 04/16/2024 [facility] Worker [facility] [address] [place] [address] Frederick, Ekellson 04/14/2024 1:00 PM EST Office Visit [facility] [address] [phone] David Perez MD Encounter for annual physical exam (Primary Dx); Type 2 diabetes mellitus with other diabetic kidney complication, without long-term current use of insulin ([facility]/HCC); Type 2 diabetes mellitus without complication, without long-term current use of insulin ([facility]); Acute cholecystitis; Anemia, unspecified type; Tobacco dependency 03/25/2024 Telephone Internal Medicine [facility] [address] [phone] Kaya Carballo [place] Request For Order(s) (Monique GOULD Discharge Summary /) 03/16/2024 Telephone Internal Medicine [address] [phone] Kaya Carballo [place] Request For Order(s) (Monique GUOLD Physicians Missed Visit 03/11/24/) from Last 3 Months Medical History Medical History Date Comments Cholecystitis 01/15/2024 Type 2 diabetes mellitus without complication ([facility]/HCC) Anemia, unspecified Chronic midline low back pain without sciatica Septicemia due to Escherichia coli (E. coli) ( S/HCC) Hypertension Family History Medical History Relation Name Comments Diabetes Maternal Grandmother Lung cancer Neg Hx Relation Name Status Comments Father Maternal Grandfather [...] Orientation Straight 05/18/2024 2: 29 PM EST Obstetrics History Last Filed Vital Signs Vital Sign Reading Time Taken Comments Blood Pressure 114/70 04/27/2024 3:48 PM EST Pulse 74 04/27/2024 3:48 PM EST Temperature 36.3 ??C (97.3 ??F) 05/18/2024 2:04 PM ES T Respiratory Rate - - Oxygen Saturation 100% 04/27/2024 3:48 PM EST Inhaled Oxygen Concentration - - Weight 64.9 kg (143 lb) 04/27/2024 3:48 PM EST Height 175.3 cm (5' 9 ) 04/27/2024 3:48 PM EST Body Mass Index 21.12 04/27/2024 3:48 PM EST Plan of Treatment Upcoming Encounters Date Type Department Care Team (Late st Contact Info) Description 08/19/2024 3:[address] [facility] [address] [place] [phone] Eulalia Vargas MD [address] [address] 10/27/2024 11:30 AM EDT Office Visit Internal Medicine - [facility] [address] [phone] David Perez MD [address] [address] Health Maintenance Due Date Last Done Comments Diabetes: Annual Foot Exam 1972 Diabetes: Annual Retina Eye Exam 1972 DTaP,Tdap,and Td Vaccines (1 - Tdap) 1981 Hepatitis A Vaccines (1 of 2 - Risk 2-dose series) 1981 Pneumococcal Vaccine: 50+ Years (1 of 2 - PCV) 1981 Pneumococcal Vaccine: Pediatrics (0 to 5 Years) and At-Risk Patients (6 to 64 Years) (1 of 2 - PCV) 1981 Zoster Vaccines (1 of 2) 2012 RSV Immunization Patients 60 + Years Old (1 - Risk 60-74 years 1-dose series) 2022 Colorectal Cancer Screening: Colonoscopy 10/24/2023 COVID-19 Vaccine (2023-2 5 season) 2023 Influenza Vaccine (#1) 2023 Diabetes: Blood Sugar Contro l Test (HGBA1C) 09/02/2024 03/04/2024, 10/09/2023, 10/09/2023 Diabetes: Annual Urine Albumin-Creatinine Ratio (uACR) 10/08/2024 10/09/2023 Diabetes: Annual GFR (Glomerular Filtration Rate) 03/04/2025 03/04/2024, 07/11/2023 Depression Screening 04/14/2025 04/14/2024 Social Influencers of Health Screening 04/14/2025 04/14/2024 Lung Cancer Screening (Low Dose CT) 05/18/2025 05/18/2024 Cholesterol Screening (Lipid Panel) 07/10/2028 07/11/2023 HIV [...] patient's age to complete this topic Meningococcal B Vacine Aged Out No lo nger eligible based on patient's age to complete [...] for screening for lung cancer Cigarette smoker COMPREHENSIVE METABOLIC PANEL Routine 03/04/2024 1:47 PM EST Transaminitis Hypokalemia Type 2 diabetes mellitus with other diabetic kidney complication, without long-term current use of insulin (CMS/HCC) HEMOGLOBIN A1C Routine 03/04/2024 1:47 PM EST Type 2 diabetes mellitus with other diabetic kidney complication, without long-term current use of insulin (CMS/HCC) HM URINE ALBUMIN CREATININE RATIO Routine 10/09/2023 HEPATITIS C SCREENING Routine 07/11/2023 HM HIV SCREENING Routine 07/11/2023 LIPID PANEL Routine 07/11/2023 from Last 3 Months or Most Recently Relevant to Health Maintenance Results * CT Lung Screening (05/18/2024 2:43 [...] Signed Date: 05/23/2024 14:40 ET Workstation ID: [id number] Transcribed By: Self Edit Transcribed Date: 05/23/2024 [...] Signed Date: 05/23/2024 14:40 ET Workstation ID: [id number] Transcribed By: Self Edit Transcribed Date: 05/23/2024 14:37 ET us Ariana Song MD [facility] CT PROCEDURES Final Result * Hemoglobin A1c (03/04/2024 1:47 PM EST) Hemoglobin A1C 6.0 <6.5 % LAB CHEMISTRY METHOD 03/04/2024 8:16 PM EST [facility] Mean Bld Glu Estim. 126 mg/dL LAB CHEMISTRY METHOD 03/04/2024 8:16 PM [facility] Blood Venous blood specimen / Unknown Venipuncture / Unknown 03/04/2024 1:47 PM EST 03/04/2024 1:47 PM EST us Kandi [facility] LAB BLOOD ORDERABLES Fin al Result [facility] [address] [place] [address], [place] [phone] * Comprehensive metabolic panel (03/04/2024 1:47 PM EST) Sodium 140 133 - 145 mmol/L LAB CHEMISTRY METHOD 03/04/2024 6:40 PM [facility] Potassium 4.4 3.5 - 5.5 mmol/L LAB CHEMISTRY METHOD 03/04/2024 6:40 PM [facility] Chloride 108 96 - 110 mmol/L LAB CHEMISTRY METHOD 03/04/2024 6:40 PM [facility] CO2 28 21 - 32 mmol/L LAB CHEMISTRY METHOD 03/04/2024 6:40 PM [facility] Anion Gap 4 3 - 11 LAB CHEMISTRY METHOD 03/04/2024 6:40 PM [facility] Glucose 95 70 - 100 mg/dL LAB CHEMISTRY METHOD 03/04/2024 6:40 PM [facility] BUN 13 5 - 25 mg/dL LAB CHEMISTRY METHOD 03/04/2024 6:40 PM [facility] Creatinine 1.25 0.70 - 1.30 mg/dL LAB CHEMISTRY METHOD 03/04/2024 6:40 PM [facility] eGFR 66 >=60 mL/min/1. 73m2 LAB CHEMISTRY METHOD 03/04/2024 6:40 PM [facility] Comment:Calculation based on the??Chronic Kidney Disease Epidemiology Collaboration (CKD-EPI) equation refit??without adjustment for race. BUN/Creatinine Ratio 10.4 LAB CHEMISTRY METHOD 03/04/2024 6:40 PM [facility] Calcium 9.5 8.5 - 10.5 mg/dL LAB CHEMISTRY METHOD 03/04/2024 6:40 PM [facility] AST (SGOT) 14 10 - 42 unit/L LAB CHEMISTRY METHOD 03/04/2024 6:40 PM [facility] ALT (SGPT) 20 10 - 60 unit/L LAB CHEMISTRY METHOD 03/04/2024 6:40 PM [facility] Alkaline Phosphatase 79 42 - 121 unit/L LAB CHEMISTRY METHOD 03/04/2024 6:40 PM [facility] Total Protein 7.6 6.0 - 8.0 g/dL LAB CHEMISTRY METHOD 03/04/2024 6:40 PM [facility] Albumin 3.6 3.2 - 5.0 g/dL LAB CHEMISTRY METHOD 03/04/2024 6:40 PM [facility] Total Bilirubin 0.2 0.0 - 1.4 mg/dL LAB CHEMISTRY METHOD 03/04/2024 6:40 PM [facility] Blood Venous blood specimen / Unknown Venipuncture / Unknown 03/04/2024 1:47 PM EST 03/04/2024 1:47 PM EST us Kandi [facility]ITAL LAB BLOOD ORDERABLES Fin al Result [facility] [address] [place] [address], [place] [phone] * Urine Albumin Creatinine Ratio (10/09/2023) Urine Albumin Creatinine Ratio Abstracted Historical Provider HEALTH MAINTENANCE Final Result * HIV Screening (07/11/2023) HIV Screening Abstracted Historical Provider HEALTH MAINTENANCE Final Result * Hm Hepatitis C Screening (07/11/2023) HM Hepatitis C Screening Abstracted Historical Provider HEALTH MAINTENANCE Final Result * (ABNORMAL) Lipid panel (07/11/2023) LDL/HDL Ratio 6(A) 0 - 4 Triglycerides 116 0 - 150 mg/dL Cholesterol 200 0 - 200 mg/dL HDL 32(A) >=40 mg/dL LDL Cholesterol 145(A) 0 - 100 mg/dL Blood Venous blood specimen / Unknown Historical Provider LAB BLOOD ORDERABLES Roro l Result from Last 3 Months or Most Recently Relevant to Health Maintenance [place] [address] [place] [address] [email or web address] Care Teams Counter Intelligence Technician Relationship Specialty Start Date End Date David Perez MD 175 [facility] [address] [place] [address] PCP - General 05/07/23
== END 2024-06-08 14:24 | disposition home or self-care (01) ==
LOC: HO.HKA 14:04
PROVIDERS: PCP Student in an Organized Health Care Education/Training Program; Visit Provider Internal Medicine Hypertension Specialist
DX: N17.9 Acute kidney failure, unspecified (principal); R80.1 Persistent proteinuria, unspecified
CPT/HCPCS: 99214

== ENCOUNTER → 2024-06-08 14:03 | Outpatient (BNVA) | payer OTHER, SELFPAY | PROVIDERS: PCP Student in an Organized Health Care Education/Training Program; Visit Provider Internal Medicine Hypertension Specialist | DX: R80.1 Persistent proteinuria, unspecified (principal); N18.9 Chronic kidney disease, unspecified; N17.9 Acute kidney failure, unspecified | CPT/HCPCS: 99212 ==

== ENCOUNTER 2024-12-14 13:32 | Outpatient (REF) | payer OTHER, SELFPAY ==
[2024-12-14 14:57] LABS: Anion Gap 11 (12-20); Blood Urea Nitrogen 18 mg/dL (9-16); Calcium 9.6 mg/dL (8.4-10.2); Carbon Dioxide 31 mmol/L (22-29); Chloride 104 mmol/L (96-108); Estimated Glomerular Filt Rate 49; Potassium 5.1 mmol/L (3.3-5.1); Sodium 141 mmol/L (135-145)
[2024-12-14 15:15] LABS: Appearance Urine Clear; Glucose Urine UA Negative (Negative); PH 7.0 (5.0-9.0); Specific Gravity - Urine 1.010 (1.005-1.025); UMIC TRIGGER UA YES
[2024-12-14 15:55] LABS: Total Protein Urine Random 10 mg/dL (<12)
== END 2024-12-14 13:33 | disposition home or self-care (01) ==
LOC: HO.LAB 13:32
PROVIDERS: PCP Student in an Organized Health Care Education/Training Program; Visit Provider Internal Medicine Hypertension Specialist
DX: E11.22 Type 2 diabetes mellitus with diabetic chronic kidney disease (principal); N18.9 Chronic kidney disease, unspecified; Z79.84 Long term (current) use of oral hypoglycemic drugs; Z79.899 Other long term (current) drug therapy
CPT/HCPCS: 36415; 80048; 81001; 82570; 84156; 99212

== ENCOUNTER 2024-12-14 13:32 | Outpatient (AMB) | payer OTHER, SELFPAY ==
[2024-12-14 13:38] VITALS: BP 116/78; PULSE 81; O2SAT 99; BMI 22.1
--- NOTE | 2024-12-14 13:38 | HO.NEPHOV ---
Vital Signs 12/14/24 13:38 Height 5 ft 9 in Weight 150 lb BMI 22.1 BP 116/78 Blood Pressure Location Rt brachial Position Sitting Pulse 81 Pulse Source Pulse Oximeter Pulse Oximetry (%) 99 Oxygen Delivery Method Room Air Intake Visit Reasons: 6 MO FU-Conf Trial Manager Required: Yes Trial Manager Name: Mery [id number] Accompanied by: Self / Same As Patient Allergies No Known Allergies Allergy (Verified 12/14/24 13:40) Medication List - Last Reconciled 12/14/24 by Chi Jacob MD acetaminophen 1,000 mg (2 x 500 mg) PO Q8H PRN ascorbic acid (vitamin C) 250 mg PO DAILY empagliflozin (Jardiance) 10 mg PO QAM ferrous sulfate 325 mg PO DAILY ibuprofen 800 mg PO Q8H PRN lisinopril 5 mg PO DAILY metformin ER 1,000 mg PO BID nicotine topical DAILY nicotine (polacrilex) mg PO PRN HPI Comments Details: 63 y/o male (primary language is [place] 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 He was recently hospitalized on 01/12 for septic shock (source thought to be secondary to acalculous cholecysits). He required ICU care and vasopressor support, s/p cholecystostomy tube placement; had ALEC likely tubular injury secondary to hypoperfusion from septic shock. Seen for hospital follow up on 02/10/24, here for 1 month return. smokin-3 cigarettes in a day, used to be much heavier per pt. working on cutting down. alcohol: none family hx: patient denies known personal or family history of kidney disease denies other known medical history outside of diabetes (was on metformin, jardiance outpatient) medications: metformin 1000mg BID, jardiance 10mg daily. Providers: PCP: recently saw PCP at [facility], Dr Autumn Ayala. Specialists: reports sees mission support specialist, was referred by PCP; he is unsure of name/site. Imagin/18 CT abd/pelvis: CT abdomen/pelvis on 01/12 showed questionable pyelonephritis with possible right-sided atelectasis versus small abscess repeat abd CT from 01/15 showed striated parenchymal pattern probably related to prior IV contrast and ATN; superimposed pyelonephritis cannot be confirmed or excluded. Question mild fullness of right renal collecting system, unchanged compared to 3 days prior. Left renal collecting system appears unremarkable. No hydrouereter or calculi seen. Creatinine trend: baseline creatinine 1.10 on 07/31/23, GFR >60 01/12 Creatinine 2.54, 1.66 on 01/15 discharge 02/10/24 creatinine 1.16, GFR>60 Urine: 02/10/24 no blood, trace protein, WBCs. urine protein/creatinine ratio 02/09/14 0.43 diet, salt: working on this sugars: trying to work on this NSIADs/OTC medications: None no shortness of breath no edema no urinary symptoms no rash no joint pain, with exception of bilateral knees, chronic/intermittent had reported poor appetite last visit, states this has resolved and he is feeling well. 12/14/24 Overall doing well. no complaints today. Interpretor was used [facility] Medical History (Updated 06/08/24 @ 14:16 by Chi Jacob MD) Language barrier Diabetes FH: cholecystectomy (~12/2023) ALEC (acute kidney injury) Surgical History H/O insertion of cholecystostomy tube Social History Household Members: Family Household Members Other:: , 6 children Housing: House Are you a primary complex care nurse practitioner to a significant other at home: No Do you presently have visiting nurse or other home services: No Patient Tobacco Use Status: Current everyday Tobacco user Tobacco use type: Cigarette Cigarettes Per Day: 4 Years Smoked: 30 service: No Physical Exam Vital Signs: Last Vital Signs Pulse 81 12/14/24 13:38 BP 116/78 12/14/24 13:38 Pulse Ox 99 12/14/24 13:38 Oxygen Delivery Method Room Air 12/14/24 13:38 BMI result Body Mass Index 22.1 Const General: healthy appearing, no acute distress, alert and awake Neck Neck: Yes no JVD Thyroid: Thyroid normal Resp Effort & Inspection: normal respiratory effort and able to speak in complete sentences Auscultation: clear to auscultation bilaterally Cardio Jugular venous distension: no JVD Rate: regular rate Rhythm: regular rhythm Heart sounds: S1 normal heart sound present, S2 normal heart sound present and no murmurs GI Other: right abdominal drain in place. Palpation (GI): Soft to palpation and nontender General: Yes no CVA tenderness Back/Spine/Pelvis Back: no CVA tenderness Skin Lesions: no lesions Rashes: no rashes Extrem General: No edema and No pedal edema Results Reviewed Nephrology Results: Hgb, (14.0-18.0) 11.5 g/dl L 04/08/24 WBC, (4.8-10.8) 7.6 X10*3/uL 04/08/24 Plt Count, (160-400) 191 X10*3/uL 04/08/24 Sodium, (135-145) 141 mmol/L 12/14/24 Potassium, (3.3-5.1) 5.1 mmol/L 12/14/24 Chloride, (96-108) 104 mmol/L 12/14/24 Carbon Dioxide, (22-29) 31 mmol/L H 12/14/24 BUN, (9-16) 18 mg/dL H 12/14/24 Creatinine, (0.5-1.4) 1.45 mg/dL H 12/14/24 Calcium, (8.4-10.2) 9.6 mg/dL 12/14/24 Urine Protein, (Neg-Trace) Negative mg/dL 12/14/24 Urine Creatinine 79.52 mg/dL 12/14/24 Protein/Creatinin Ratio, (<0.2) 0.13 04/06/24 Assessment & Plan Assessment & Plan (1) ALEC (acute kidney injury): Comment: due to septic shock 12/2023-bacteremia, acalculous cholecystitis-drain in place Code(s): N17.9 - Acute kidney failure, unspecified Category: Medical (2) Proteinuria: Code(s): R80.9 - Proteinuria, unspecified Category: Medical Qualifiers: Proteinuria type: persistent Qualified Code(s): R80.1 - Persistent proteinuria, unspecified (3) CKD (chronic kidney disease): Code(s): N18.9 - Chronic kidney disease, unspecified Category: Medical Plan ALEC secondary to tubular injury from hypoperfusion secondary to septic shock in January 21 ALEC resolved Underlying CKD - underlying diabetic kidney disease. Recent creatinine was 1.29 which is probably his baseline Repeat ordered Persistent proteinuria- urine protein/creatinine ratio 0.43 REpeat was 0.13 most likely secondary to diabetic nephropathy Would benefit from JOSIAH inhibitors and SGLT2 inhibitors. Continue Lisinopril 5mg daily Blood pressure is well controlled Stay on low salt diet and advised regular exercise Orders: Orders Basic Metabolic Panel 12/14/24 N18.9 - Chronic kidney disease, unspecified Coding Level of Care Code Est Pt Level 4 (87645) Diagnoses ALEC (acute kidney injury) N17.9 Persistent proteinuria R80.1 Proteinuria type: persistent CKD (chronic kidney disease) N18.9
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
== END 2024-12-14 13:49 | disposition home or self-care (01) ==
LOC: HO.HKA 13:33
PROVIDERS: PCP Student in an Organized Health Care Education/Training Program; Visit Provider Internal Medicine Hypertension Specialist
DX: N17.9 Acute kidney failure, unspecified (principal); R80.1 Persistent proteinuria, unspecified; N18.9 Chronic kidney disease, unspecified
CPT/HCPCS: 99214